=== PATIENT | male | born 1965 | race Caucasian/White ===

== ENCOUNTER 2017-05-25 12:24 | Emergency (ER) | payer MEDICAID ==
[~2017-05-25] VITALS: Ht 177.8 cm; Wt 75.0 kg
[~2017-05-25 12:24] MED LIST: AMLO10 PO; CALC.25 PO; CLON.2 PO; HYDR10TA23 PO; MIRTA15 PO; NORC5TAB PO; OLAN10TA PO; PHOS667C5 PO; PROZ40CA PO
[2017-05-25 12:26] VITALS: BP 176/112; PULSE 74; RESP 20; TEMP 97.5; O2SAT 99
[2017-05-25 12:32] VITALS: BP 178/93
[2017-05-25 12:38] VITALS: BP 190/93; PULSE 64; RESP 18; TEMP 97.6; O2SAT 99
[2017-05-25] MEDS ORDERED: CALC1CAP PO (12:43)
--- NOTE | 2017-05-25 13:02 | PD ---
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 He went to do dialysis yesterday and was told his fistula was clotted and needed to come to the emergency department. Dialysis was not completed. Dr. Thomas placed the fistula in August 2016. Patient has polycystic kidney disease. Patient also has hypertension and did not take his Norvasc 10 mg this morning. Symptoms are moderate in severity. Has no other medical complaints. No other modified factors or associated signs and symptoms. PFSH Past Medical History Arthritis: Yes Cancer: No Cardiovascular Problems: Yes High Cholesterol: No Chest Pain: No Congestive Heart Failure: No Diabetes: No Dialysis: Yes (left fistula upper arm) Diminished Hearing: No Endocrine: No Gastrointestinal Disorders: No GERD: Yes (pt denies) Glaucoma: Yes Gout: Yes Genitourinary: Yes Hepatitis: No Hiatal Hernia: No Hypertension: Yes Immune Disorder: No Kidney Stones: No Musculoskeletal: Yes Neurologic: No Psychiatric: Yes (bipolar) Reproductive: No Respiratory: Yes Renal Failure: Yes Thyroid Disease: No Past Surgical History Body Medical Devices: broken lex in rt. femur Joint Replacement: No Neurologic Surgery: No Pacemaker: No Other Surgery: Yes (left fistula placement for dialysis) Social History Alcohol Use: No Tobacco Use: Yes (1/2 PPD) Substance Use: No Allergies-Medications (Allergen,Severity, Reaction): Coded Allergies: Codeine (Verified Allergy, Unknown, Hives, 05/25/17) Reported Meds & Prescriptions Reported Meds & Active Scripts Active [place] (Hydrocodone-Acetaminophen) 5-325 mg Tab 1 Tab PO Q8HR PRN Reported Calcium Acetate (Phosphate Binder) 667 Mg Cap 667 Mg PO TID Norvasc (Amlodipine Besylate) 10 Mg Tab 10 Mg PO DAILY Review of Systems Except as stated in HPI: all other systems reviewed are Neg Physical Exam Narrative GENERAL: Well-nourished, well-developed male patient, in no acute distress SKIN: Warm and dry. Right AV fistula without palpable thrill. Right upper extreme supplemented with 2+ radial pulses and sensory intact and without erythema or edema. HEAD: Atraumatic. Normocephalic. EYES: Pupils equal and round. No scleral icterus. No injection or drainage. ENT: Mucosa pink and moist. Airway patent. NECK: Trachea midline. CARDIOVASCULAR: Regular rate. RESPIRATORY: No accessory muscle use. GASTROINTESTINAL: Rounded. MUSCULOSKELETAL: No obvious deformities. No clubbing. No cyanosis. No edema. NEUROLOGICAL: Awake and alert. Oriented 3. No obvious cranial nerve deficits. Motor grossly within normal limits. Normal speech. PSYCHIATRIC: Appropriate mood and affect; insight and judgment normal. Data Data Last Documented VS Vital Signs Date Time Temp Pulse Resp B/P Pulse Ox O2 Delivery O2 Flow Rate FiO2 05/25/17 12:38 64 18 99 Room Air 05/25/17 12:38 97.6 190/93 Orders Basic Metabolic Panel (Bmp) (05/25/17 12:55) Complete Blood Count With Diff (05/25/17 12:55) Amlodipine (Norvasc) (05/25/17 13:15) Prothrombin Time / Inr (Pt) (05/25/17 13:14) Act Partial Throm Time (Ptt) (05/25/17 13:14) Labs Laboratory Tests Test 05/25/17 13:10 White Blood Count 6.1 TH/MM3 Red Blood Count 4.21 MIL/MM3 Hemoglobin 13.1 GM/DL Hematocrit 39.9 % Mean Corpuscular Volume 94.8 FL Mean Corpuscular Hemoglobin 31.2 PG Mean Corpuscular Hemoglobin 32.9 % Concent Red Cell Distribution Width 13.8 % Platelet Count 187 TH/MM3 Mean Platelet Volume 9.0 FL Neutrophils (%) (Auto) 74.9 % Lymphocytes (%) (Auto) 17.2 % Monocytes (%) (Auto) 7.1 % Eosinophils (%) (Auto) 0.4 % Basophils (%) (Auto) 0.4 % Neutrophils # (Auto) 4.6 TH/MM3 Lymphocytes # (Auto) 1.1 TH/MM3 Monocytes # (Auto) 0.4 TH/MM3 Eosinophils # (Auto) 0.0 TH/MM3 Basophils # (Auto) 0.0 TH/MM3 CBC Comment DIFF FINAL Differential Comment Prothrombin Time 11.3 SEC Prothromb Time International 1.0 RATIO Ratio Activated Partial 29.8 SEC Thromboplast Time Sodium Level 138 MEQ/L Potassium Level 4.3 MEQ/L Chloride Level 106 MEQ/L Carbon Dioxide Level 23.7 MEQ/L Anion Gap 8 MEQ/L Blood Urea Nitrogen 55 MG/DL Creatinine 6.03 MG/DL Estimat Glomerular Filtration 10 ML/MIN Rate Random Glucose 84 MG/DL Calcium Level 8.8 MG/DL MDM Medical Decision Making Medical Screen Exam Complete: Yes Emergency Medical Condition: Yes Medical Record Reviewed: Yes Differential Diagnosis AV fistula malfunction, hypertension, medical clearance Narrative Course 52-year-old male on dialysis that was told to come to the emergency department yesterday after reporting to dialysis and his AV fistula is clotted off. There is no thrill on exam. Patient's blood pressure is also elevated. He did not take his Norvasc today. I spoke with Dr. Giron my attending physician, and she recommended to call Dr. Thomas or whoever is on-call for him to discuss the AV fistula. Norvasc administered in the ER. 1303: Call out to Dr. Thomas. 1315: I spoke with Dr. Oh and he recommend for the patient to be referred to interventional radiology. 1420: BUN 55. Creatinine 6.03. Patient will be admitted with and referred to interventional radiology. Call placed to residents for admission. 1439: Spoke with Dr. Lon M.D. resident, and gave report for admission. 1536: Dr. Burton spoke with interventional radiology and they feel comfortable discharging the patient home and having the patient call and make an appointment to be seen in interventional radiology on Saturday. The patient will be discharged home. I discussed this with the patient and he verbalizes understanding and agreement with the plan of care. He was provided with the phone number and told to call and make an appointment on Saturday. Instructed patient to follow up with primary care provider. Patient verbalizes understanding and agreement with treatment plan. Patient is medically cleared and stable for discharge. Discussed reasons to return to the emergency department. Patient agrees with treatment plan. The patients vital signs are stable and the patient is stable for outpatient follow-up and treatment. Patient discharged home, stable and in no acute distress. Diagnosis Primary Impression: AV fistula occlusion Qualified Code: T82.898A - Arteriovenous fistula occlusion, initial encounter Referrals: Primary Care Physician Patient Instructions: General Instructions Additional Instructions: Avoid eating foods with potassium Avoid drinking fluids in excess Call [phone], as early as 6:30 AM on Saturday morning, and ask for scheduling to schedule an appointment for Saturday for your fistula Follow-up with primary care provider Return to the emergency department immediately with worsening of symptoms Med/Other Pt SpecificInfo: No Meds Exist/No RX given Disposition: 01 DISCHARGE HOME Condition: Stable Renata Leonardo May 25, 2017 13:02
[2017-05-25 13:39] LABS: AUTOMATED NEUTROPHIL # 4.6 TH/MM3 (1.8-7.7); BASOPHIL % 0.4 % (0.0-2.0); EOSINOPHIL % 0.4 % (0.0-4.0); HEMATOCRIT 39.9 % (39.0-51.0); HEMO FLAGS DIFF FINAL; LYMPH % 17.2 % (9.0-44.0); LYMPHOCYTE # 1.1 TH/MM3 (1.0-4.8); MEAN CELL VOLUME 94.8 FL (80.0-100.0); MEAN CORPUSCULAR HEMOGLOBIN 31.2 PG (27.0-34.0); MEAN CORPUSCULAR HGB CONC 32.9 % (32.0-36.0); MONO % 7.1 % (0.0-8.0); NEUT % 74.9 % (16.0-70.0); PLATELET COUNT 187 TH/MM3 (150-450); RED BLOOD COUNT 4.21 MIL/MM3 (4.50-5.90); RED CELL DISTRIBUTION WIDTH 13.8 % (11.6-17.2); WHITE BLOOD COUNT 6.1 TH/MM3 (4.0-11.0)
[2017-05-25 13:46] LABS: BICARBONATE 23.7 MEQ/L (21.0-32.0); POTASSIUM 4.3 MEQ/L (3.5-5.1)
[2017-05-25 14:03] LABS: APTT (PATIENT) 29.8 SEC (24.3-30.1); PROTHROMBIN TIME - PATIENT 11.3 SEC (9.8-11.6)
--- NOTE | 2017-05-25 14:52 | PD ---
Data Data Last Documented VS Vital Signs Date Time Temp Pulse Resp B/P Pulse Ox O2 Delivery O2 Flow Rate FiO2 05/25/17 12:38 64 18 99 Room Air 05/25/17 12:38 97.6 190/93 Orders Basic Metabolic Panel (Bmp) (05/25/17 12:55) Complete Blood Count With Diff (05/25/17 12:55) Amlodipine (Norvasc) (05/25/17 13:15) Prothrombin Time / Inr (Pt) (05/25/17 13:14) Act Partial Throm Time (Ptt) (05/25/17 13:14) Admit Order (Ed Use Only) (05/25/17 14:38) Labs Laboratory Tests Test 05/25/17 13:10 White Blood Count 6.1 TH/MM3 Red Blood Count 4.21 MIL/MM3 Hemoglobin 13.1 GM/DL Hematocrit 39.9 % Mean Corpuscular Volume 94.8 FL Mean Corpuscular Hemoglobin 31.2 PG Mean Corpuscular Hemoglobin 32.9 % Concent Red Cell Distribution Width 13.8 % Platelet Count 187 TH/MM3 Mean Platelet Volume 9.0 FL Neutrophils (%) (Auto) 74.9 % Lymphocytes (%) (Auto) 17.2 % Monocytes (%) (Auto) 7.1 % Eosinophils (%) (Auto) 0.4 % Basophils (%) (Auto) 0.4 % Neutrophils # (Auto) 4.6 TH/MM3 Lymphocytes # (Auto) 1.1 TH/MM3 Monocytes # (Auto) 0.4 TH/MM3 Eosinophils # (Auto) 0.0 TH/MM3 Basophils # (Auto) 0.0 TH/MM3 CBC Comment DIFF FINAL Differential Comment Prothrombin Time 11.3 SEC Prothromb Time International 1.0 RATIO Ratio Activated Partial 29.8 SEC Thromboplast Time Sodium Level 138 MEQ/L Potassium Level 4.3 MEQ/L Chloride Level 106 MEQ/L Carbon Dioxide Level 23.7 MEQ/L Anion Gap 8 MEQ/L Blood Urea Nitrogen 55 MG/DL Creatinine 6.03 MG/DL Estimat Glomerular Filtration 10 ML/MIN Rate Random Glucose 84 MG/DL Calcium Level 8.8 MG/DL MDM Supervised Visit with ANNA: Yes Narrative Course The history, exam, and medical decision-making in the associated midlevel provider note were completed with my assistance. I reviewed and agree with the findings presented. I attest that I had a [id number] encounter with the patient on the same day, and personally performed and documented my assessment and findings in the medical record. *My assessment and Findings: This is a 52-year-old male who presents to the emergency department with a clotted AV fistula. His AV fistula was found to be nonfunctioning yesterday at dialysis he was told to come to the emergency department. He presents today. Labs are reassuring. Patient will be admitted for interventional radiology evaluation of the fistula. Diagnosis Primary Impression: AV fistula occlusion Qualified Code: T82.898A - Arteriovenous fistula occlusion, initial encounter Sarah Melendez MD May 25, 2017 14:52
--- NOTE | 2017-05-25 15:10 | HHI.HP ---
HPI Service Family Medicine Primary Care Physician No Primary Care Physician Admission Diagnosis AV FISTULA CLOTTED Diagnoses: International Travel<30 Days: No Contact w/Intl Traveler<30days: No Known Affected Area: No History of Present Illness Patient is a 52-year-old male with past medical history for polycystic kidney disease currently on dialysis presenting due to occlusion of his AV fistula. Patient went to dialysis on Saturday and was informed that his AV fistula had clotted and was told to come to the ED. He was not able to have dialysis on Saturday. His last dialysis was on Saturday. He is normally dialyzed Saturday/Saturday/Saturday. AV fistula was done in [address] Barroso. His cold rolling coordinator is Dr. Garduno, who he saw last week. He does not know his baseline creatine. Overall he feels well. He has had some nausea and a decreased appetite over the past several days. Otherwise he has no other acute concerns. (Hilda Forrest MD R3) Review of Systems Constitutional: DENIES: Fever, Chills Eyes: DENIES: Vision loss Ears, nose, mouth, throat: DENIES: Hearing loss Respiratory: DENIES: Shortness of breath Cardiovascular: DENIES: Chest pain Gastrointestinal: COMPLAINS OF: Nausea, DENIES: Abdominal pain, Constipation, Diarrhea Genitourinary: DENIES: Dysuria Integumentary: DENIES: Rash Hematologic/lymphatic: DENIES: Bruising Neurologic: DENIES: Headache Psychiatric: DENIES: Mood changes (Hilda Forrest MD R3) Past Family Social History Past Medical History Polycystic kidney disease HTN Gout Per EMR: Bipolar disorder Past Surgical History AV fistula in right arm, August 2016 [place] in right femur Fusion in C5-6 (Pt was in an accident in 1983) Reported Medications Reported Meds & Active Scripts Active [place] (Hydrocodone-Acetaminophen) 5-325 mg Tab 1 Tab PO Q8HR PRN Reported Calcium Acetate (Phosphate Binder) 667 Mg Cap 667 Mg PO TID Norvasc (Amlodipine Besylate) 10 Mg Tab 10 Mg PO DAILY (Hilda Forrest MD R3) Allergies: Coded Allergies: Codeine (Verified Allergy, Unknown, Hives, 05/25/17) Family History Mother: at 86 Father: DM, in his 70s Social History He lives with his grilfriend Smokes about <1/2 PPD, trying to quit, has been prescribed Chantix, has been smoking for over 30yrs denies alcohol no illicit drug use (Hilda Forrest MD R3) Physical Exam Vital Signs Vital Signs Date Time Temp Pulse Resp B/P Pulse Ox O2 Delivery O2 Flow Rate FiO2 05/25/17 12:38 64 18 99 Room Air 05/25/17 12:38 97.6 64 18 190/93 99 Room Air 05/25/17 12:32 178/93 05/25/17 12:26 97.5 74 20 176/112 99 Room Air Physical Exam GENERAL: This is a well-nourished, well-developed patient, in no apparent distress. SKIN: No rashes, ecchymoses or lesions. Cool and dry. HEAD: Atraumatic. Normocephalic. No temporal or scalp tenderness. EYES: Pupils equal round and reactive. Extraocular motions intact. No scleral icterus. No injection or drainage. ENT: Nose without bleeding, purulent drainage or septal hematoma. Throat without erythema, tonsillar hypertrophy or exudate. Uvula midline. Airway patent. Upper dentures NECK: Trachea midline. No JVD or lymphadenopathy. Supple, nontender, no meningeal signs. CARDIOVASCULAR: Regular rate and rhythm without murmurs, gallops, or rubs. RESPIRATORY: Clear to auscultation. Breath sounds equal bilaterally. No wheezes , rales, or rhonchi. GASTROINTESTINAL: Abdomen soft, mildly distended, mild diffuse abdominal discomfort with palpation. Umbilical hernia about 3cm in diameter, reducible. No palpable masses. MUSCULOSKELETAL: Extremities without clubbing, cyanosis, or edema. No calf tenderness. Negative Homans sign bilaterally. RUE: Pt with Right AV fistula, no palpable thrill. Right arm is warm and well perfused, +2 brachial and radial pulses. NEUROLOGICAL: Awake and alert. Cranial nerves II through XII intact. Motor and sensory grossly within normal limits. Normal speech. PSYCH: Pt with flat affect, makes appropriate eye contact. Laboratory Laboratory Tests Test 05/25/17 13:10 White Blood Count 6.1 Red Blood Count 4.21 Hemoglobin 13.1 Hematocrit 39.9 Mean Corpuscular Volume 94.8 Mean Corpuscular Hemoglobin 31.2 Mean Corpuscular Hemoglobin 32.9 Concent Red Cell Distribution Width 13.8 Platelet Count 187 Mean Platelet Volume 9.0 Neutrophils (%) (Auto) 74.9 Lymphocytes (%) (Auto) 17.2 Monocytes (%) (Auto) 7.1 Eosinophils (%) (Auto) 0.4 Basophils (%) (Auto) 0.4 Neutrophils # (Auto) 4.6 Lymphocytes # (Auto) 1.1 Monocytes # (Auto) 0.4 Eosinophils # (Auto) 0.0 Basophils # (Auto) 0.0 CBC Comment DIFF FINAL Differential Comment Prothrombin Time 11.3 Prothromb Time International 1.0 Ratio Activated Partial 29.8 Thromboplast Time Sodium Level 138 Potassium Level 4.3 Chloride Level 106 Carbon Dioxide Level 23.7 Anion Gap 8 Blood Urea Nitrogen 55 Creatinine 6.03 Estimat Glomerular Filtration 10 Rate Random Glucose 84 Calcium Level 8.8 (Hilda Forrest MD R3) Result Diagram: 05/25/17 1310 05/25/17 1310 Assessment and Plan Assessment and Plan Patient is a 52-year-old male with history of polycystic kidney disease currently on dialysis presenting due to AV fistula occlusion. Interventional radiology to be consulted Code Status Full Discussed Condition With SDW Dr. Goldstein, PGY1 WDW Weight Inspector rn corrections (Hilda Forrest MD R3) Attending Attestation Case reviewed and discussed with the resident team. Agree with plan of care as discussed with me and documented in the resident note. Resident physicians report that after patient was seen by them the decision was made not to admit patient since IR not available over . Will have procedure done Saturday. ( Galen Osman MD) Problem List: (1) AV fistula occlusion Status: Acute Plan: Pt presents with occlusion of AV fistula x1 day. Electrolytes currently within normal limits. -IR consulted, appreciate recommendations. Unfortunately on the weekend there is no interventional radiologist in-house, unless there is an acute emergency. Patient would not be able to have AV fistula evaluated by IR until Saturday. -Patient's case was discussed with cold rolling coordinator rn corrections. Patient's electrolytes are within normal limits. Patient does not need to be dialyzed emergently. Patient to be discharged to follow-up with IR as an outpatient on Saturday. (2) Polycystic kidney disease Status: Acute Plan: Patient with history of polycystic kidney disease, currently on dialysis Saturday/Saturday/Saturday. See plan above (3) Abdominal distention Status: Acute Plan: On exam patient with abdominal distention. -Consider abdominal ultrasound for further evaluation -We'll check LFTs, consider hepatitis profile if elevated (4) Hypertension Status: Chronic Plan: Continue home Norvasc (5) FEN/PPX Status: Acute Plan: Fluids: None, patient tolerating PO. Restrict fluids as patient will not be dialyzed until Saturday Electrolytes: Within normal limits, continue to monitor Nutrition: Renal diet DVT PPX: Heparin (Hilda Forrest MD R3) Problem List: (1) AV fistula occlusion Status: Acute Plan: Pt presents with occlusion of AV fistula x1 day. Electrolytes currently within normal limits. -IR consulted, appreciate recommendations. Unfortunately on the weekend there is no interventional radiologist in-house, unless there is an acute emergency. Patient would not be able to have AV fistula evaluated by IR until Saturday. -Patient's case was discussed with cold rolling coordinator rn corrections. Patient's electrolytes are within normal limits. Patient does not need to be dialyzed emergently. Patient to be discharged to follow-up with IR as an outpatient on Saturday. (2) Polycystic kidney disease Status: Acute Plan: Patient with history of polycystic kidney disease, currently on dialysis Saturday/Saturday/Saturday. See plan above (3) Abdominal distention Status: Acute Plan: On exam patient with abdominal distention. -Consider abdominal ultrasound for further evaluation -We'll check LFTs, consider hepatitis profile if elevated (4) Hypertension Status: Chronic Plan: Continue home Norvasc (5) FEN/PPX Status: Acute Plan: Fluids: None, patient tolerating PO. Restrict fluids as patient will not be dialyzed until Saturday Electrolytes: Within normal limits, continue to monitor Nutrition: Renal diet DVT PPX: Heparin (Galen Osman MD) Problem Qualifiers (1) AV fistula occlusion: Qualified Code: T82.898A - Arteriovenous fistula occlusion, initial encounter Hilda Forrest MD R3 May 25, 2017 15:10 Galen Osman MD May 26, 2017 15:14
[2017-05-25 16:12] VITALS: BP 190/90
[2017-06-10] MEDS ORDERED: VARE.5 PO (12:34)
== END 2017-05-25 16:13 | disposition home or self-care (01) ==
LOC: NEPD 12:24 → UNDOADMIN 14:40 → NEDA 14:40
DX: T82.898A Other specified complication of vascular prosthetic devices, implants and grafts, initial encounter (principal); M13.88 Other specified arthritis, other site; K21.9 Gastro-esophageal reflux disease without esophagitis; M10.9 Gout, unspecified; F31.9 Bipolar disorder, unspecified; I12.9 Hypertensive chronic kidney disease with stage 1 through stage 4 chronic kidney disease, or unspecified chronic kidney disease; N18.9 Chronic kidney disease, unspecified; F17.200 Nicotine dependence, unspecified, uncomplicated; Z99.2 Dependence on renal dialysis
CPT/HCPCS: 80048; 85025; 85610; 85730; 99283

== ENCOUNTER 2017-05-27 10:08 | Observation (INO) | payer MEDICAID ==
[~2017-05-27] VITALS: Ht 177.8 cm; Wt 75.0 kg
[~2017-05-27 10:08] MED LIST changes: -CALC.25 PO; +CALC1CAP PO; -CLON.2 PO; -HYDR10TA23 PO; -MIRTA15 PO; -OLAN10TA PO; -PHOS667C5 PO; -PROZ40CA PO
[2017-05-27 10:10] VITALS: BP 173/96; PULSE 78; RESP 18; TEMP 98.4; O2SAT 98
--- NOTE | 2017-05-27 10:33 | PD ---
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 I saw him in the emergency department over the weekend and he was instructed to call the radiology department this morning to make an appointment to get his fistula declotted. He says he lost his discharge paperwork on the bus that he just came to the emergency department to figure out what was going on. He says he denies any shortness of breath, chest pain or any new symptoms. The last time he received dialysis was 6 days ago. 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 [facility] Past Medical History Arthritis: Yes Cancer: No Cardiovascular Problems: Yes High Cholesterol: No Chest Pain: No Congestive Heart Failure: No Diabetes: No Dialysis: Yes (right fistula upper arm) Diminished Hearing: No Endocrine: No Gastrointestinal Disorders: No GERD: Yes (pt denies) Glaucoma: Yes Gout: Yes Genitourinary: Yes Hepatitis: No Hiatal Hernia: No Hypertension: Yes Immune Disorder: No Kidney Stones: No Musculoskeletal: Yes Neurologic: No Psychiatric: Yes (bipolar) Reproductive: No Respiratory: Yes Renal Failure: Yes Thyroid Disease: No Past Surgical History Body Medical Devices: broken lex in rt. femur Joint Replacement: No Neurologic Surgery: No Pacemaker: No Other Surgery: Yes (right fistula placement for dialysis) Social History Alcohol Use: No Tobacco Use: Yes (1/2 PPD) Substance Use: No Allergies-Medications (Allergen,Severity, Reaction): Coded Allergies: Codeine (Verified Allergy, Unknown, Hives, 05/27/17) Reported Meds & Prescriptions Reported Meds & Active Scripts Active Reported Calcium Acetate (Phosphate Binder) 667 Mg Cap 667 Mg PO TID Norvasc (Amlodipine Besylate) 10 Mg Tab 10 Mg PO DAILY Review of Systems Except as stated in HPI: all other systems reviewed are Neg Physical Exam Narrative GENERAL:Well appearing, no acute distress SKIN: Focused skin assessment warm and dry. HEAD: Atraumatic. Normocephalic. EYES: Pupils equal and round. No injection or drainage. ENT: Moist mucous membranes NECK: Trachea midline. CARDIOVASCULAR: Regular rate and rhythm. No murmur appreciated. no thrill AV fistula RLE RESPIRATORY: Clear to auscultation. Breath sounds equal bilaterally. GASTROINTESTINAL: Abdomen soft, non-tender, nondistended. MUSCULOSKELETAL: No obvious deformities. NEUROLOGICAL: Awake and alert. No obvious cranial nerve deficits. PSYCHIATRIC: Appropriate mood and affect; insight and judgment normal. Data Data Last Documented VS Vital Signs Date Time Temp Pulse Resp B/P Pulse Ox O2 Delivery O2 Flow Rate FiO2 05/27/17 10:10 98.4 78 18 173/96 98 Room Air Orders Complete Blood Count With Diff (05/27/17 10:19) Basic Metabolic Panel (Bmp) (05/27/17 10:19) ^ Insert Iv (05/27/17 10:19) Invasive Rad Dept Consult (05/27/17 ) Admit Order (Ed Use Only) (05/27/17 12:16) Labs Laboratory Tests Test 05/27/17 10:34 White Blood Count 6.7 TH/MM3 Red Blood Count 4.33 MIL/MM3 Hemoglobin 13.6 GM/DL Hematocrit 40.2 % Mean Corpuscular Volume 93.0 FL Mean Corpuscular Hemoglobin 31.5 PG Mean Corpuscular Hemoglobin 33.9 % Concent Red Cell Distribution Width 13.2 % Platelet Count 190 TH/MM3 Mean Platelet Volume 8.4 FL Neutrophils (%) (Auto) 75.4 % Lymphocytes (%) (Auto) 15.7 % Monocytes (%) (Auto) 7.9 % Eosinophils (%) (Auto) 0.4 % Basophils (%) (Auto) 0.6 % Neutrophils # (Auto) 5.0 TH/MM3 Lymphocytes # (Auto) 1.0 TH/MM3 Monocytes # (Auto) 0.5 TH/MM3 Eosinophils # (Auto) 0.0 TH/MM3 Basophils # (Auto) 0.0 TH/MM3 CBC Comment DIFF FINAL Differential Comment Sodium Level 135 MEQ/L Potassium Level 4.4 MEQ/L Chloride Level 105 MEQ/L Carbon Dioxide Level 21.5 MEQ/L Anion Gap 9 MEQ/L Blood Urea Nitrogen 54 MG/DL Creatinine 5.54 MG/DL Estimat Glomerular Filtration 11 ML/MIN Rate Random Glucose 96 MG/DL Calcium Level 9.0 MG/DL [facility] Medical Decision Making Medical Screen Exam Complete: Yes Emergency Medical Condition: Yes Differential Diagnosis Thrombosed AV fistula Narrative Course This is a 52-year-old male who presents to the emergency department with a clotted AV fistula. He was supposed to follow up as an outpatient with radiology but failed to do so. Now has been 6 days since dialysis. I plan to place him in observation and consult interventional radiology. Labs were obtained which look reassuring. Diagnosis Primary Impression: Clotted renal dialysis AV graft Qualified Code: T82.868D - Thrombosis of kidney dialysis arteriovenous graft, subsequent encounter Admitting Information Admitting Physician Requests: Observation Sarah Melendez MD May 27, 2017 10:33
[2017-05-27 10:47] LABS: BASOPHIL % 0.6 % (0.0-2.0); EOSINOPHIL % 0.4 % (0.0-4.0); HEMATOCRIT 40.2 % (39.0-51.0); HEMO FLAGS DIFF FINAL; LYMPH % 15.7 % (9.0-44.0); MEAN CORPUSCULAR HEMOGLOBIN 31.5 PG (27.0-34.0); MEAN CORPUSCULAR HGB CONC 33.9 % (32.0-36.0); MONO % 7.9 % (0.0-8.0); NEUT % 75.4 % (16.0-70.0); PLATELET COUNT 190 TH/MM3 (150-450); RED BLOOD COUNT 4.33 MIL/MM3 (4.50-5.90); RED CELL DISTRIBUTION WIDTH 13.2 % (11.6-17.2); WHITE BLOOD COUNT 6.7 TH/MM3 (4.0-11.0)
[2017-05-27 11:15] LABS: BICARBONATE 21.5 MEQ/L (21.0-32.0); POTASSIUM 4.4 MEQ/L (3.5-5.1)
[2017-05-27] MEDS ORDERED: SODIUM CHLORIDE 0.9% FLUSH 10 ML FLUSH IV FLUSH PRN ×2 (12:30→16:00)
[2017-05-27] MEDS ORDERED: ceFAZolin 2 GM PREMIX 50 ML ONE (14:05)
[2017-05-27] MEDS ORDERED: MIDAZOLAM HCL 2 MG/2 ML VIAL ONE (14:14)
[2017-05-27] MEDS ORDERED: fentaNYL CITRATE 250 MCG/5 ML AMP ONE (14:14)
[2017-05-27] MEDS ORDERED: ALTEPLASE RECOMBINANT 2 MG VIAL INTRACATH ONE (14:49)
--- NOTE | 2017-05-27 14:51 | HHI.HP ---
[facility] Service Family Medicine Primary Care Physician No Primary Care Physician Admission Diagnosis av fistula occlusion Diagnoses: International Travel<30 Days: No Contact w/Intl Traveler<30days: No Known Affected Area: No History of Present Illness Mr. Streeter is a 52 y/o M with a past medical history of polycystic kidney disease currently on MWF dialysis presenting due to occlusion of his AV fistula. The patient states that he went to dialysis on Saturday and was informed by the nursing staff that his fistula had clotted off, and they were unable to complete his dialysis. He then presented on 05/25/17 to the emergency department because of his occlusion with where he was discharged home with instructions to follow-up with interventional radiology on Saturday for occlusion procedure. Unfortunately, he lost his discharge paperwork and therefore presented to the ER this morning for his procedure. He currently states that his occlusion is not painful. He has full range of motion and sensation in his right upper extremity. He states that he will be able to walk up a complete flight of stairs without shortness of breath or chest pain if required to. He currently has no other complaints and denies any fevers, chills, shortness of breath, chest pain, NVD, abdominal pain, or calf tenderness. Review of Systems Constitutional: DENIES: Fever, Dizziness Eyes: DENIES: Blurred vision Ears, nose, mouth, throat: DENIES: Nasal discharge, Throat pain Respiratory: DENIES: Cough, Shortness of breath Cardiovascular: DENIES: Chest pain Gastrointestinal: COMPLAINS OF: Abdominal pain (abdominal fullness/bloating), DENIES: Constipation, Diarrhea, Nausea, Vomiting Genitourinary: DENIES: Dysuria Musculoskeletal: COMPLAINS OF: Joint pain (right knee pain) Integumentary: DENIES: Rash Hematologic/lymphatic: DENIES: Lymphadenopathy Neurologic: DENIES: Headache Past Family Social History Past Medical History Polycystic kidney disease HTN Gout Per EMR: Bipolar disorder Past Surgical History AV fistula in right arm, August 2016 [place] in right femur Fusion in C5-6 (Pt was in an accident in 1983) Allergies: Coded Allergies: Codeine (Verified Allergy, Unknown, Hives, 05/27/17) Family History Mother: at 86 Father: DM, in his 70s Social History He lives with his grilfriend Smokes about <1/2 PPD, trying to quit, has been prescribed Chantix, has been smoking for over 30yrs denies alcohol no illicit drug use Physical Exam Vital Signs Vital Signs Date Time Temp Pulse Resp B/P Pulse Ox O2 Delivery O2 Flow Rate FiO2 05/27/17 10:10 98.4 78 18 173/96 98 Room Air Physical Exam GENERAL: Well-nourished, well-developed 52-year-old male lying on gurney in no acute distress SKIN: No rashes, ecchymoses or lesions. Cool and dry. HEENT: Atraumatic, normocephalic with EOMI. MMM. No LAD, JVD, or thyroid abnormality appreciated. NECK: Trachea midline. No JVD or lymphadenopathy. Supple, nontender, no meningeal signs. CARDIOVASCULAR: Regular rate and rhythm without murmurs, gallops, or rubs. RESPIRATORY: Clear to auscultation bilaterally with no CRW. No increased work of breathing. GASTROINTESTINAL: Abdomen soft, mildly distended with mild tenderness to palpation. Positive bowel sounds. Umbilical hernia approximately 3 cm in diameter, reducible and nontender. No other palpable masses. MUSCULOSKELETAL: Extremities without cyanosis or edema. No calf tenderness and negative Homans sign. Right upper extremity: Patient with right AV fistula without palpable thrill. 2-3 cm palpable clot superior to the right antecubital fossa. 2+ brachial and radial pulses. NEUROLOGICAL: Awake and alert. Cranial nerves II through XII grossly intact. Motor and sensory grossly within normal limits. Five out of 5 muscle strength in all muscle groups. Normal speech. Normal interaction with medical staff. Laboratory Laboratory Tests Test 05/27/17 10:34 White Blood Count 6.7 Red Blood Count 4.33 Hemoglobin 13.6 Hematocrit 40.2 Mean Corpuscular Volume 93.0 Mean Corpuscular Hemoglobin 31.5 Mean Corpuscular Hemoglobin 33.9 Concent Red Cell Distribution Width 13.2 Platelet Count 190 Mean Platelet Volume 8.4 Neutrophils (%) (Auto) 75.4 Lymphocytes (%) (Auto) 15.7 Monocytes (%) (Auto) 7.9 Eosinophils (%) (Auto) 0.4 Basophils (%) (Auto) 0.6 Neutrophils # (Auto) 5.0 Lymphocytes # (Auto) 1.0 Monocytes # (Auto) 0.5 Eosinophils # (Auto) 0.0 Basophils # (Auto) 0.0 CBC Comment DIFF FINAL Differential Comment Sodium Level 135 Potassium Level 4.4 Chloride Level 105 Carbon Dioxide Level 21.5 Anion Gap 9 Blood Urea Nitrogen 54 Creatinine 5.54 Estimat Glomerular Filtration 11 Rate Random Glucose 96 Calcium Level 9.0 Result Diagram: 05/27/17 1034 05/27/17 1034 Assessment and Plan Assessment and Plan Mr. Amezquita is a 52-year-old male with a history of polycystic kidney disease currently on MWF dialysis presenting due to AV fistula occlusion. Code Status DNR Discussed Condition With Dr. Melendez, ER physician Dr. Salcido Problem List: (1) AV fistula occlusion Status: Acute Plan: Patient presents with occlusion of his right upper extremity AV fistula since last 05/22/17. Electrolytes currently within normal limits. IR consulted, appreciate recommendations. BMP currently stable Patient's case was discussed with business services intern medical receptionist medical assistant, Dr. Garduno. If patient is to remain in hospital overnight, nephrology will plan for dialysis tomorrow, Saturday05/28/17. If patient is discharged, team will contact case management in order to arrange for dialysis tomorrow, Saturday05/28/17. (2) Polycystic kidney disease Status: Acute Plan: Patient with history of polycystic kidney disease, currently on dialysis Saturday/Saturday/Saturday. Please see plan above (3) Abdominal distention Status: Acute Plan: On exam patient with abdominal distention likely related to volume overload as patient has not had dialysis and approximately one week. Please see plan as above LFTs pending Consider abdominal ultrasound/hepatitis panel for further evaluation pending LFT evaluation (4) Hypertension Status: Chronic Plan: Patient with chronic hypertension Continue home Norvasc Clonidine 0.1 mg by mouth every 6 hours for blood pressure greater than 180/100 (5) FEN/PPX Status: Acute Plan: Fluids: Tolerating fluids by mouth Electrolytes: Within normal limits, continue to monitor Diet: Nothing by mouth in preparation for procedure, will place on renal diet once Procedure completed Prophylaxis: Duoneb necessary for shortness of breath/wheezing, Vistaril when necessary for insomnia, constipation protocol in place, Zofran when necessary for nausea or vomiting (6) Surgical contraindication to deep vein thrombosis (DVT) prophylaxis Status: Acute Plan: Patient scheduled by interventional radiology for AV fistula occlusion Hold pharmacological DVT prophylaxis at this time SCD/TEDs ordered Physician Certification 2 Midnight Certification Type: Admission for Inpatient Services Order for Inpatient Services The services are ordered in accordance with Medicare regulations or non- Medicare payer requirements, as applicable. In the case of services not specified as inpatient-only, they are appropriately provided as inpatient services in accordance with the 2-midnight benchmark. Estimated LOS (days): 3 3 days is the estimated time the patient will need to remain in the hospital, assuming treatment plan goals are met and no additional complications. Post-Hospital Plan: Home Problem Qualifiers (1) AV fistula occlusion: Qualified Code: T82.898A - Arteriovenous fistula occlusion, initial encounter Jabier Shah MD R2 May 27, 2017 14:51
[2017-05-27] MEDS ORDERED: LIDOCAINE 1%/EPINEPHrine 1:100,000 SOLN 20 ML VIAL ONE (15:10)
[2017-05-27] MEDS: MIDAZOLAM HCL 2 MG/2 ML VIAL ONE (15:15)
[2017-05-27] MEDS ORDERED: IODIXANOL 320 MG/ML 50 ML VIAL (for RAD SPEC) ONE (15:45)
[2017-05-27 15:49] VITALS: BP 173/97; PULSE 79; RESP 16; RESP 17; TEMP 97.7; O2SAT 100
--- NOTE | 2017-05-27 15:53 | PD.RAD ---
Post Procedure Progress Note Pre Procedure Diagnosis: (1) Polycystic kidney disease (2) AV fistula occlusion Post Procedure Diagnosis: (1) Polycystic kidney disease (2) AV fistula occlusion Procedure Date: May 27, 2017 Supervising Radiologist: Dion Schultz JR Proceduralist/Assist: Yuliana Mace, RT(R), Marlene Beltrán RT(R)() Anesthesia: Conscious Sedation Plan of Activity Patient to Unit: ROPU Patient Condition: Good See PACS Report for procedural detail/treatment Vascular-Venous Procedure Procedure 1 Procedure Site: Right Arm Procedure(s): AV Graft/Fistula Evaluation Findings: Right arm AVF evaluation shows brachial artery to cephalic vein AVF. Thrombosis of the cephalic vein outflow near the anastomosis with a diffusely strictured cephalic vein throughout the remaining part. This fistula is not salvageable. Central Venous Access Device Procedure 1 Right Internal Jugular Hemodialysis Catheter Tunneled Placement dual lumen Marshallese: 15 Findings: Placed Permcath due to occluded AVF that is not salvageable. Permcath works well and is ready for use. Jr. Antoine,Dion Jackson MD May 27, 2017 15:53
[2017-05-27] MEDS ORDERED: RESP: ALBUTEROL 2.5 MG/IPRATROPIUM 0.5 MG NEB (PRN) NEB (16:00)
[2017-05-27] MEDS ORDERED: SODIUM CHLORIDE 0.9% FLUSH 10 ML FLUSH IVF PRN (16:00)
[2017-05-27] MEDS ORDERED: SENNOSIDES 8.6 MG TAB PO PRN (16:00)
[2017-05-27] MEDS ORDERED: DOCUSATE SODIUM 50 MG/SENNA 8.6 MG TAB PO PRN (16:00)
[2017-05-27] MEDS ORDERED: NALOXONE HCL 0.4 MG/ML AMP IV PRN ×2 (16:00→21:00)
[2017-05-27] MEDS ORDERED: BISACODYL 10 MG SUPP RECTAL PRN (16:00)
[2017-05-27] MEDS ORDERED: MAGNESIUM HYDROXIDE SUSP 30 ML CUP PO PRN (16:00)
[2017-05-27] MEDS ORDERED: LACTULOSE SYRUP 20 GM/30 ML CUP PO PRN (16:00)
[2017-05-27] MEDS ORDERED: ONDANSETRON HCL 4 MG/2 ML VIAL IVP PRN (16:00)
[2017-05-27] MEDS ORDERED: HEPARIN SODIUM - IV 2,000 UNITS/2 ML VIAL IV FLUSH PRN (16:00)
[2017-05-27 16:05] VITALS: BP_SYST 158; BP_SYST 172; BP_DIAS 84; BP_DIAS 88; PULSE 72; PULSE 76; RESP 16; RESP 18; O2SAT 98
[2017-05-27 16:17] LABS: TOTAL BILIRUBIN ADULT 0.5 MG/DL (0.2-1.0)
[2017-05-27 16:22] LABS: INDIRECT BILIRUBIN 0.4 MG/DL (0.0-0.8)
[2017-05-27 16:28] VITALS: BP 170/102; PULSE 67; RESP 18; TEMP 96; O2SAT 99
[2017-05-27] MEDS: cloNIDine HCL 0.1 MG TAB PO PRN ×2 (17:51→23:34)
[2017-05-27] MEDS: CALCIUM ACETATE 667 MG CAP PO SCH (17:51)
[2017-05-27 20:00] VITALS: BP 173/97; PULSE 57; RESP 16; TEMP 96.4; O2SAT 98
[2017-05-27] MEDS: SODIUM CHLORIDE 0.9% FLUSH 10 ML FLUSH IV FLUSH SCH (20:28)
[2017-05-27] MEDS ORDERED: SODIUM CHLORIDE 0.9% FLUSH 10 ML FLUSH IV FLUSH SCH (21:00)
[2017-05-27] MEDS ORDERED: ACETAMINOPHEN/HYDROcodone 325 MG/5 MG TAB PO PRN (21:00)
[2017-05-27] MEDS ORDERED: ACETAMINOPHEN 325 MG TAB PO PRN (21:00)
[2017-05-27] MEDS ORDERED: MORPHINE SULFATE 4 MG/ML INJ IV PRN (21:00)
[2017-05-27] MEDS: ACETAMINOPHEN/HYDROcodone 325 MG/7.5 MG TAB PO PRN (21:51)
[2017-05-27 23:32] VITALS: BP 182/90; PULSE 54; RESP 16; TEMP 97.1; O2SAT 99
[2017-05-28 01:30] VITALS: BP 135/96; PULSE 57
[2017-05-28 04:00] VITALS: BP 130/80; PULSE 50; RESP 17; TEMP 96.6; O2SAT 98
[2017-05-28] MEDS: CALCIUM ACETATE 667 MG CAP PO SCH ×3 (07:26→15:44)
[2017-05-28] MEDS: ACETAMINOPHEN/HYDROcodone 325 MG/7.5 MG TAB PO PRN ×3 (07:26→16:53)
[2017-05-28] MEDS: SODIUM CHLORIDE 0.9% FLUSH 10 ML FLUSH IV FLUSH SCH (07:28)
[2017-05-28 08:00] VITALS: BP 164/93; PULSE 51; RESP 18; TEMP 95.8; O2SAT 100
--- NOTE | 2017-05-28 08:51 | HHI.FPPN ---
Subjective Remarks Patient seen and examined this morning by Medical Team. No acute events overnight. Patient was hypertensive overnight to the 180s systolic. Patient states he did well after his procedure, but has some mild pain at his new permacath site on his R chest. There has been no erythema, hemorrhage, or drainage at his permacath. Otherwise he has no complaints and denies any recent fevers, chills, SOB, chest pain, NVD, ABD pain, or calf tenderness. Objective Vitals Vital Signs Date Time Temp Pulse Resp B/P Pulse Ox O2 Delivery O2 Flow Rate FiO2 05/28/17 08:00 95.8 51 18 164/93 100 05/28/17 04:00 96.6 50 17 130/80 98 05/28/17 01:30 57 135/96 05/27/17 23:32 97.1 54 16 182/90 99 Automatic Cuff 05/27/17 20:00 96.4 57 16 173/97 98 05/27/17 16:28 96.0 67 18 170/102 99 05/27/17 16:05 72 16 158/84 98 05/27/17 15:49 97.7 79 16 173/97 100 05/27/17 15:49 97.7 79 17 173/97 100 05/27/17 10:10 98.4 78 18 173/96 98 Room Air I/O 05/27/17 05/27/17 05/27/17 05/28/17 05/28/17 05/28/17 07:00 15:00 23:00 07:00 15:00 23:00 Intake Total 480 ml 240 ml Balance 480 ml 240 ml Intake Oral 480 ml 240 ml # Voids 2 1 # Bowel Movements 0 0 Result Diagram: 05/27/17 1034 05/27/17 1034 Objective Remarks GENERAL: Well-nourished, well-developed male lying in bed in no acute distress. SKIN: Warm and dry. No rash. Multiple bandages on the right upper extremity after procedure to unocclude right upper extremity AV fistula. Right permacath inserted on right chest wall. Permacath site clean, dry, and intact. No erythema , exudate, or hemorrhage appreciated. Patient mildly tender to palpation at permacath site. HEENT: Atraumatic, normocephalic with EOMI. MMM. No rhinorrhea CARDIOVASCULAR: Regular rate and rhythm without obvious murmurs, gallops, or rubs. RESPIRATORY: Clear to auscultation bilaterally with no CRW. No increased work of breathing. GASTROINTESTINAL: Abdomen soft, non-tender, nondistended with positive bowel sounds. No masses appreciated. MUSCULOSKELETAL: No cyanosis or edema. Strength grossly WNL. NEURO/PSYCH: Afocal. Awake, alert, and oriented x3. Normal interaction with examiners. A/P Assessment and Plan Mr. Amezquita is a 52-year-old male with a history of polycystic kidney disease currently on MWF dialysis presenting due to AV fistula occlusion. His AV fistula was unable to be unoccluded by IR procedure. Permacath was placed and dialysis was scheduled for 05/28. Vascular surgery consulted to assist with possible new AV fistula site. Discharge Planning Pending vascular surgery recommendations and dialysis. Problem List: (1) AV fistula occlusion Status: Acute Plan: Patient presents with occlusion of his right upper extremity AV fistula since last 05/22/17. Electrolytes currently within normal limits. IR consulted, appreciate recommendations. AV fistula unable to be unoccluded. Permacath placed for dialysis treatment Vascular surgery consulted for possible alternate AV fistula site. BMP currently stable Nephrology consulted for dialysis, appreciate recommendations (2) Polycystic kidney disease Status: Acute Plan: Patient with history of polycystic kidney disease, currently on dialysis Saturday/Saturday/Saturday. Please see plan above (3) Abdominal distention Status: Acute Plan: On exam patient with abdominal distention likely related to volume overload as patient has not had dialysis and approximately one week. Please see plan as above LFTs pending Consider abdominal ultrasound/hepatitis panel for further evaluation pending LFT evaluation (4) Hypertension Status: Chronic Plan: Patient with chronic hypertension Continue home Norvasc Clonidine 0.1 mg by mouth every 6 hours for blood pressure greater than 180/100 (5) FEN/PPX Status: Acute Plan: Fluids: Tolerating fluids by mouth Electrolytes: Within normal limits, continue to monitor Diet: Nothing by mouth in preparation for procedure, will place on renal diet once Procedure completed Prophylaxis: Duoneb necessary for shortness of breath/wheezing, Vistaril when necessary for insomnia, constipation protocol in place, Zofran when necessary for nausea or vomiting (6) Surgical contraindication to deep vein thrombosis (DVT) prophylaxis Status: Acute Plan: Patient scheduled by interventional radiology for AV fistula occlusion Hold pharmacological DVT prophylaxis at this time SCD/TEDs ordered Problem Qualifiers (1) AV fistula occlusion: Qualified Code: T82.898A - Arteriovenous fistula occlusion, initial encounter Jabier Shah MD R2 May 28, 2017 08:51
[2017-05-28 09:11] LABS: AUTOMATED NEUTROPHIL # 3.3 TH/MM3 (1.8-7.7); BASOPHIL % 0.5 % (0.0-2.0); EOSINOPHIL % 0.8 % (0.0-4.0); HEMATOCRIT 36.5 % (39.0-51.0); HEMO FLAGS DIFF FINAL; LYMPH % 22.5 % (9.0-44.0); LYMPHOCYTE # 1.1 TH/MM3 (1.0-4.8); MEAN CELL VOLUME 92.9 FL (80.0-100.0); MEAN CORPUSCULAR HEMOGLOBIN 31.5 PG (27.0-34.0); MONO % 9.8 % (0.0-8.0); NEUT % 66.4 % (16.0-70.0); PLATELET COUNT 160 TH/MM3 (150-450); RED BLOOD COUNT 3.93 MIL/MM3 (4.50-5.90); RED CELL DISTRIBUTION WIDTH 13.5 % (11.6-17.2)
[2017-05-28 09:19] LABS: PROTHROMBIN TIME - PATIENT 11.4 SEC (9.8-11.6)
--- NOTE | 2017-05-28 09:27 | RADRPT ---
EXAM DATE/TIME: 05/27/2017 14:03 [facility] COMPARISON: No previous studies available for comparison. INDICATIONS : Patient with history of polycystic kidney disease in need of tunnelled dialysis catheter placement. P atient has a nonsalvageable fistula involving the right arm. MEDICAL HISTORY : GERD, Dialysis, Gout, HTN, Renal failure, Bipolar disorder, Polycystic kidney disease SURGICAL HISTORY : AV fistula Aug 2016, Right femur lex, C5-6 fusion ENCOUNTER: Initial ACUITY: 1 week PAIN SCORE: 0/10 FLUORO TIME: 3.2 minutes IMAGE SERIES: 1 SEDATION TIME: 75 minutes ACCESS: Right internal jugular vein SEDATION: 1.) 2.5 mg midazolam (Versed) IV 2.) 275 mcg fentanyl (Sublimaze) IV Prophylactic antibiotics were administered with appropriate pre-procedure timing. Vancomycin within 2 hours of procedure, Ancef (or alternative) within 1 hour of procedure. DEVICE: 1. 15 Estonian dual lumen 23 cm Davis II Plus catheter PROCEDURE : 1. Ultrasound-guided venipuncture. 2. PermaCath placement. 3. Conscious sedation with continuous EKG and oximetry monitoring. The risks, benefits and alternatives to the procedure were explained and verbal and written consent w as obtained. The site was prepped in sterile fashion. Full sterile technique was used, including ca p, mask, sterile gloves and gown and a large sterile sheet. Hand hygiene and 2% chlorhexidine and/or betadine/alcohol prep was utilized per protocol for cutaneous antisepsis. The skin and subcutaneous tissues were infiltrated with local anesthetic solution. With ultrasound and fluoroscopic guidance a dermatotomy was created over the prescribed vein. A micr opuncture set was used to access the targeted vein and serial dilatation was performed to accept the prescribed length catheter. A subcutaneous tunnel was created in a retrograde fashion the catheter w as pulled through the tunnel. The catheter was flushed and assembled and locked with heparin. The c atheter was sutured in place. Conscious sedation was performed with the prescribed dosages and duration as above in the presence of an independent trained radiology nurse to assist in the monitoring of the patient. EKG and oximetry remained stable throughout the procedure. The patient tolerated the procedure well and there were n o complications. The patient was sent to post anesthesia recovery in stable condition. CONCLUSION: Uncomplicated PermaCath placement as above. Dion Schultz Jr., MD on May 28, 2017 at 9:23 Board Certified Radiologist. This report was verified electronically.
--- NOTE | 2017-05-28 09:32 | RADRPT ---
EXAM DATE/TIME: 05/27/2017 14:03 [facility] COMPARISON: No previous studies available for comparison. INDICATIONS : Patient with occluded AV fistula in need of venogram. MEDICAL HISTORY : GERD, Dialysis, Gout, HTN, Renal failure, Bipolar disorder, Polycystic kidney disease SURGICAL HISTORY : AV fistula Aug 2016, Right femur lex, C5-6 fusion ENCOUNTER: Initial ACUITY: 1 week PAIN SCORE: 0/10 FLUORO TIME: 3.2 minutes IMAGE SERIES: 4 ACCESS SITE: Right AV fistula CONTRAST: 20 cc Visipaque (iodixanol) MEDICATION(S): 1.) 2.5 mg midazolam (Versed) IV 2.) 275 mcg fentanyl (Sublimaze) IV 3.) 6 mg TPA IA DEVICE(S): 1.) Right AV fistula Syvek pad 2.) Right AV fistula Syvek pad PROCEDURE : 1. Ultrasound-guided venipuncture. 2. Venogram. 3. Catheter directed thrombolysis The risks, benefits and alternatives to the procedure were explained and verbal and written consent w as obtained. The site was prepped in sterile fashion. Full sterile technique was used, including ca p, mask, sterile gloves and gown and a large sterile sheet. Hand hygiene and 2% chlorhexidine and/or betadine/alcohol prep was utilized per protocol for cutaneous antisepsis. The skin and subcutaneous tissues were infiltrated with local anesthetic solution. The patient has a fistula involving the right upper arm. Palpation shows no pulse or thrill within th e fistula. Under direct sonographic guidance a 21 gauge needle was passed into the outflow vein headi ng towards the arterial venous anastomosis. This was exchanged for a 6 Wallisian sheath. The outflow vei n was laced with 4 mg of TPA while holding pressure at the arterial venous anastomosis. A second acce ss was performed utilizing ultrasound guidance heading towards the central venous system. A 6 Wallisian sheath was placed. Through this a Berenstein catheter was utilized to gain access to the subclavian v ein. A central venogram was performed showing patency of the subclavian vein and superior vena cava. The catheter was pulled back into the outflow vein of the fistula which is the cephalic vein. A gentl e injection of contrast was performed which shows diffuse high-grade stenosis throughout the entire o utflow cephalic vein. The portion of the cephalic vein within the distal upper arm just proximal to t he anastomosis is a more normal caliber but is totally thrombosed. This fistula is no longer salvagea ble due to the long segment stenosis. Catheters were removed and hemostasis obtained while holding pr essure. CONCLUSION: Brachial artery to cephalic vein arteriovenous fistula involving the right upper arm. The fistula is thrombosed secondary to a long segment high grade stenosis of the outflow cephalic vein. This is not salvageable. A perm catheter will be placed. Dion Schultz Jr., MD on May 28, 2017 at 9:25 Board Certified Radiologist. This report was verified electronically.
[2017-05-28] MEDS ORDERED: SODIUM CHLOR 0.9% 1000 ML INJ 1,000 ML IV PRN ×3 (09:35)
[2017-05-28 09:37] LABS: ALKALINE PHOSPHATASE 93 U/L (45-117); ALT (GPT) 10 U/L (12-78); ANION GAP 8 MEQ/L (5-15); AST (GOT) 11 U/L (15-37); BICARBONATE 21.8 MEQ/L (21.0-32.0); BLOOD UREA NITROGEN 57 MG/DL (7-18); CHLORIDE 107 MEQ/L (98-107); GLOMERULAR FILTRATION RATE 12 ML/MIN (>89); POTASSIUM 4.5 MEQ/L (3.5-5.1); SODIUM (NA) 137 MEQ/L (136-145); TOTAL BILIRUBIN ADULT 0.2 MG/DL (0.2-1.0)
[2017-05-28] MEDS ORDERED: HEPARIN SODIUM - IV 10,000 UNITS/10 ML VIAL PRN (09:45)
[2017-05-28] MEDS ORDERED: HEPARIN SODIUM - IV 10,000 UNITS/10 ML VIAL IVF PRN (09:45)
[2017-05-28] MEDS ORDERED: cloNIDine HCL 0.1 MG TAB PO PRN (09:45)
[2017-05-28] MEDS ORDERED: ALBUMIN HUMAN 25% 25 GM/100 ML BAGP IV PRN (09:45)
[2017-05-28] MEDS ORDERED: GELATIN 12 MM/7 MM FOAM TOP PRN (09:45)
[2017-05-28] MEDS ORDERED: MANNITOL 12.5 GM/50 ML VIAL IV PRN (09:45)
[2017-05-28] MEDS ORDERED: ONDANSETRON HCL 4 MG/2 ML VIAL IV PRN (09:45)
[2017-05-28] MEDS ORDERED: diphenhydrAMINE HCL 25 MG CAP PO PRN (09:45)
[2017-05-28] MEDS ORDERED: SODIUM CHLORIDE 0.9% FLUSH 10 ML FLUSH IV FLUSH PRN (09:45)
[2017-05-28] MEDS ORDERED: GENTAMICIN SULFATE (DIALYSIS USE ONLY) 20 MG/2 ML VIAL IV PRN (09:45)
[2017-05-28] MEDS ORDERED: NITROGLYCERIN 0.4 MG SL 25 TABS/BTL SL PRN (09:45)
[2017-05-28] MEDS ORDERED: ACETAMINOPHEN 325 MG TAB PO PRN (09:45)
--- NOTE | 2017-05-28 11:27 | HHI.FPPN ---
Subjective Remarks Medicine attending note: 52-year-old gentleman admitted with AV fistula thrombosis. Planned procedure with interventional radiology to hopefully reestablish patency. Chronic dialysis site due to polycystic kidney disease, Dr Garduno is his patternmaker helper. Blood pressure has been labile, otherwise the patient has no acute complaints. Refer to resident's history and physical for complete discussion of present illness, past medical history, family history, social history and review of systems. Objective Vitals Vital Signs Date Time Temp Pulse Resp B/P Pulse Ox O2 Delivery O2 Flow Rate FiO2 05/28/17 08:00 95.8 51 18 164/93 100 05/28/17 04:00 96.6 50 17 130/80 98 05/28/17 01:30 57 135/96 05/27/17 23:32 97.1 54 16 182/90 99 Automatic Cuff 05/27/17 20:00 96.4 57 16 173/97 98 05/27/17 16:28 96.0 67 18 170/102 99 05/27/17 16:05 72 16 158/84 98 05/27/17 15:49 97.7 79 16 173/97 100 05/27/17 15:49 97.7 79 17 173/97 100 I/O 05/27/17 05/27/17 05/27/17 05/28/17 05/28/17 05/28/17 06:59 14:59 22:59 06:59 14:59 22:59 Intake Total 480 ml 240 ml Balance 480 ml 240 ml Intake Oral 480 ml 240 ml # Voids 2 1 # Bowel Movements 0 0 Result Diagram: 05/28/17 0808 05/28/17 0808 Objective Remarks Vital signs noted, lability to blood pressure. Gen. appearance: Sallow appearance to the skin, no acute symptoms, patient pleasant, normal affect, HEENT: Grossly nonlocalizing. Lungs: Diminished breath sounds at the bases, no localized Rales. Cardiac: S1-S2, soft systolic murmur at the left sternal border. Vas-Cath in the right apparent internal jugular Abdomen: Flat, benign, no organomegaly evident, no tenderness. Extremities: Palpation of the right arm anteriorly reveals no palpable thrill, surgical changes. Feet are warm and dry, intact pedal pulses. Labs reviewed. A/P Assessment and Plan Clinical assessment: 52-year-old gentleman on chronic renal dialysis secondary to polycystic disease admitted for reestablishment of vascular access for dialysis. Patient seen and examined. Case discussed with resident team. Please refer to resident's history and physical for further details regarding history of present illness, review of systems, past medical history, surgical history, family history and social history. Problem List: (1) AV fistula occlusion Status: Acute Plan: Patient presents with occlusion of his right upper extremity AV fistula since last 05/22/17. Electrolytes currently within normal limits. IR consulted, appreciate recommendations. BMP currently stable Patient's case was discussed with patternmaker helper instrument and control service person, Dr. Garduno. If patient is to remain in hospital overnight, nephrology will plan for dialysis tomorrow, Saturday05/28/17. If patient is discharged, team will contact case management in order to arrange for dialysis tomorrow, Saturday05/28/17. (2) Polycystic kidney disease Status: Acute Plan: Patient with history of polycystic kidney disease, currently on dialysis Saturday/Saturday/Saturday. Please see plan above (3) Abdominal distention Status: Acute Plan: On exam patient with abdominal distention likely related to volume overload as patient has not had dialysis and approximately one week. Please see plan as above LFTs pending Consider abdominal ultrasound/hepatitis panel for further evaluation pending LFT evaluation (4) Hypertension Status: Chronic Plan: Patient with chronic hypertension Continue home Norvasc Clonidine 0.1 mg by mouth every 6 hours for blood pressure greater than 180/100 (5) FEN/PPX Status: Acute Plan: Fluids: Tolerating fluids by mouth Electrolytes: Within normal limits, continue to monitor Diet: Nothing by mouth in preparation for procedure, will place on renal diet once Procedure completed Prophylaxis: Duoneb necessary for shortness of breath/wheezing, Vistaril when necessary for insomnia, constipation protocol in place, Zofran when necessary for nausea or vomiting (6) Surgical contraindication to deep vein thrombosis (DVT) prophylaxis Status: Acute Plan: Patient scheduled by interventional radiology for AV fistula occlusion Hold pharmacological DVT prophylaxis at this time SCD/TEDs ordered Problem Qualifiers (1) AV fistula occlusion: Qualified Code: T82.898A - Arteriovenous fistula occlusion, initial encounter Jeffrey Contreras MD May 28, 2017 11:27
--- NOTE | 2017-05-28 11:51 | PD.CONS ---
HPI Service Nephrology Consult Requested By Reason for Consult ESRD on HD Primary Care Physician No Primary Care Physician History of Present Illness This is a 52 y/o male patient with ESRD with whom we follow in the outpatient setting. He normally dialyzes MWF, his last HD was Saturday one week ago as his access had clotted. The patient was unable to obtain outpatient AVF correction, therefore came to ER for evaluation. PMH of ADPKD, HTN, metabolic bone disorder , and anemia. We were consulted for dialysis management. He was seen during dialysis today, is not in distress. He is a full code. (Andra Bryan ) Review of Systems Constitutional: COMPLAINS OF: Fatigue (Andra Bryan) Past Family Social History Allergies: Coded Allergies: codeine (Unverified Allergy, Unknown, Hives, 05/28/17) Past Medical History ESRD on HD MWF secondary to ADPKD HTN Gout Metabolic bone disorder anemia of chronic disease Per EMR: Bipolar disorder Past Surgical History AVF left arm AV fistula in right arm, August 2016 Kane in right femur Fusion in C5-6 (Pt was in an accident in 1983) Reported Medications Calcium Acetate (Phosphate Binder) 667 Mg Cap 667 Mg PO TID Norvasc (Amlodipine Besylate) 10 Mg Tab 10 Mg PO DAILY Active Ordered Medications Current Medications Medications (Trade) Dose Ordered Sig/Chas Route Start Time Stop Time Status Last Admin (Norvasc) 10 mg DAILY PO 05/28/17 09:00 05/28/17 07:26 (Phoslo) 667 mg TID PO 05/27/17 18:00 05/28/17 07:26 (NS Flush) UNSCH PRN IVF 05/27/17 16:00 (Heparin Inj) UNSCH PRN IV FLUSH 05/27/17 16:00 (NS Flush) 2 ml UNSCH PRN IV FLUSH 05/27/17 16:00 (NS Flush) 2 ml BID IV FLUSH 05/27/17 21:00 05/28/17 07:28 (Zofran Inj) 4 mg Q6H PRN IVP 05/27/17 16:00 (Perla-Colace) 1 tab BID PRN PO 05/27/17 16:00 05/28/17 07:26 (Milk Of Magnesia Liq) 30 ml Q12H PRN PO 05/27/17 16:00 (Senokot) 17.2 mg Q12H PRN PO 05/27/17 16:00 (Dulcolax Supp) 10 mg DAILY PRN RECTAL 05/27/17 16:00 (Lactulose Liq) 30 ml DAILY PRN PO 05/27/17 16:00 (Catapres) 0.1 mg Q6H PRN PO 05/27/17 16:00 05/27/17 23:34 (Vistaril) 50 mg HS PO 05/27/17 21:00 05/27/17 20:28 (Tylenol) 650 mg Q6H PRN PO 05/27/17 21:00 ([place] 5-325 Mg) 1 tab Q4H PRN PO 05/27/17 21:00 ([place] 7.5-325 Mg) 1 tab Q4H PRN PO 05/27/17 21:00 05/28/17 07:26 (Morphine Inj) 2 mg Q4H PRN IV 05/27/17 21:00 Naloxone HCl 0.4 mg 0.4 mg UNSCH PRN IV 05/27/17 21:00 (NS 1000 ml Inj) 1,000 ml @ 0 mls/hr Q0M PRN IV 05/28/17 09:35 Heparin Sodium (Porcine) 8000 units 8,000 units UNSCH PRN IVF 05/28/17 09:45 Sodium Chloride 1,000 ml @ 200 mls/hr Q5H PRN IV 05/28/17 09:35 (NS 1000 ml Inj) 1,000 ml @ 0 mls/hr Q0M PRN IV 05/28/17 09:35 (Mannitol Inj) 12.5 gm UNSCH PRN IV 05/28/17 09:45 (Albumin 25% Inj) 25 gm UNSCH PRN IV 05/28/17 09:45 (NS Flush) 5 ml UNSCH PRN IV FLUSH 05/28/17 09:45 (Heparin Inj) UNSCH PRN .XX 05/28/17 09:45 (Gentamicin (Dialysis) Inj) 20 mg UNSCH PRN IV 05/28/17 09:45 (Zofran Inj) 4 mg UNSCH PRN IV 05/28/17 09:45 (Tylenol) 650 mg UNSCH PRN PO 05/28/17 09:45 (Benadryl) 25 mg UNSCH PRN PO 05/28/17 09:45 (Nitrostat Sl) 0.4 mg UNSCH PRN SL 05/28/17 09:45 (Catapres) 0.1 mg UNSCH PRN PO 05/28/17 09:45 (Gelfoam 12 Mm/7 Mm Top) 1 foam UNSCH PRN TOP 05/28/17 09:45 Family History no hx of renal failure Social History active smoker denies ETOH lives with girlfriend ambulatory retired from [employer] full code (Andra Bryan) Physical Exam Vital Signs Vital Signs Date Time Temp Pulse Resp B/P Pulse Ox O2 Delivery O2 Flow Rate FiO2 05/28/17 08:00 95.8 51 18 164/93 100 05/28/17 04:00 96.6 50 17 130/80 98 05/28/17 01:30 57 135/96 05/27/17 23:32 97.1 54 16 182/90 99 Automatic Cuff 05/27/17 20:00 96.4 57 16 173/97 98 05/27/17 16:28 96.0 67 18 170/102 99 05/27/17 16:05 72 16 158/84 98 05/27/17 15:49 97.7 79 16 173/97 100 05/27/17 15:49 97.7 79 17 173/97 100 Physical Exam Middle aged male lying supine receiving hemodialysis Awake, alert, oriented x 3 CV: S1/s2, RRR no murmurs Resp: CTAB Abd: + round, protuberant, non tender, normal bowel sounds Ext: no edema, pulses normal, AVF bilateral upper extremities, no thrill or bruit permcath right chest Laboratory Laboratory Tests Test 05/28/17 08:08 White Blood Count 5.0 Red Blood Count 3.93 Hemoglobin 12.4 Hematocrit 36.5 Mean Corpuscular Volume 92.9 Mean Corpuscular Hemoglobin 31.5 Mean Corpuscular Hemoglobin 34.0 Concent Red Cell Distribution Width 13.5 Platelet Count 160 Mean Platelet Volume 8.4 Neutrophils (%) (Auto) 66.4 Lymphocytes (%) (Auto) 22.5 Monocytes (%) (Auto) 9.8 Eosinophils (%) (Auto) 0.8 Basophils (%) (Auto) 0.5 Neutrophils # (Auto) 3.3 Lymphocytes # (Auto) 1.1 Monocytes # (Auto) 0.5 Eosinophils # (Auto) 0.0 Basophils # (Auto) 0.0 CBC Comment DIFF FINAL Differential Comment Prothrombin Time 11.4 Prothromb Time International 1.0 Ratio Sodium Level 137 Potassium Level 4.5 Chloride Level 107 Carbon Dioxide Level 21.8 Anion Gap 8 Blood Urea Nitrogen 57 Creatinine 5.28 Estimat Glomerular Filtration 12 Rate Random Glucose 92 Calcium Level 8.7 Total Bilirubin 0.2 Aspartate Amino Transf 11 (AST/SGOT) Alanine Aminotransferase 10 (ALT/SGPT) Alkaline Phosphatase 93 Total Protein 6.2 Albumin 3.0 (Andra Bryan) Result Diagram: 05/28/17 0808 05/28/17 0808 Imaging Last Impressions Venogram 05/27/17 0000 Signed Impressions: Service Date/Time: Saturday, May 27, 2017 14:03 - CONCLUSION: Brachial artery to cephalic vein arteriovenous fistula involving the right upper arm. The fistula is thrombosed secondary to a long segment high grade stenosis of the outflow cephalic vein. This is not salvageable. A perm catheter will be placed. Dion Schultz Jr., MD Catheter Placement X-Ray 05/27/17 0000 Signed Impressions: Service Date/Time: Saturday, May 27, 2017 14:03 - CONCLUSION: Uncomplicated PermaCath placement as above. Dion Schultz Jr., MD (Andra Bryan) Assessment and Plan Problem List: (1) End stage renal disease Plan: typical MWF HD schedule, last HD was one week ago seen during dialysis today on a 2K, 350 BFR, goal 1L he has clotted right arm AVF, using permcath for treatment, see below avoid IVF, he is relatively stable from a nephrology perspective (2) Clotted renal dialysis AV graft Plan: unsuccessful declotting of right arm AVF, it is unsalvageable I have spoke with vascular, Dr. De Souza, who will evaluate the patient today and plan for outpatient follow up to determine best way to proceed with terminal gauger HD access (3) Hypertension Plan: resume home medications he is on Amlodipine with PRN clonidine (4) Anemia Plan: no epogen required his Hb is acceptable (5) Metabolic bone disease Plan: Calcium acetate has been resumed intermittently check phosphorus level (Andra Bryan) Assessment and Plan patient was seen and examined. Unfortunately AVF thrombosed, IR unable to declot. Has a PermCath. Plan is for discharge. Needs outpatient vascular surgery evaluation. Difficult problem as he has failed AVF in the left arm as well. (Julio Cesar Garduno MD) Problem Qualifiers (1) Clotted renal dialysis AV graft: Qualified Code: T82.868D - Thrombosis of kidney dialysis arteriovenous graft, subsequent encounter Andra Bryan May 28, 2017 11:51 Julio Cesar Garduno MD May 28, 2017 17:32
--- NOTE | 2017-05-28 14:30 | PD.VS.CON ---
History of Present Illness Chief Complaint: Occluded right upper extremity AV Fistula Consult Requested by: Dr. Bryan History of Present Illness Mr. Streeter is a 52 y/o M with a past medical history of polycystic kidney disease currently on MWF dialysis Pt presented to the ED due to an occluded RUE AV fistula Patient w/o hand pain and has full ROM to BUE (Charline Mason) Past/Family/Social History Past Medical History Polycystic kidney disease HTN Gout Bipolar disorder Past Surgical History AV fistula in right arm, August 2016 Kane in right femur Fusion in C5-6 (Pt was in an accident in 1983) Social History Smokes about 1/2 PPD denies alcohol no illicit drug use (Charline Mason) Home Medications Reported Medications Calcium Acetate (Phosphate Binder) 667 Mg Per157 Mg PO TID #90 CAP Ref 0 05/25/17 Amlodipine (Norvasc)10 Mg Tab10 Mg PO DAILY #30 TAB Ref 0 08/12/16 Discontinued Reported Medications Fluoxetine (Prozac)40 Mg Cap40 Cap PO DAILY #30 CAP Ref 0 08/12/16 Discontinued Scripts Hydrocodone-Acetaminophen ([place])5-325 mg Tab1 Tab PO Q8HR PRN (PAIN) #10 TAB Ref 0 Prov:Agueda Adam MD 09/01/16 Olanzapine 10 Mg Tab20 Mg PO HS 30 Days Ref 0 Prov:Mauro Doe MD 08/31/16 Mirtazapine 15 Mg Tab15 Mg PO HS 30 Days Ref 0 Prov:Mauro Doe MD 08/30/16 Clonidine (Catapres)0.2 Mg Tab0.2 Mg PO TID 30 Days Ref 0 Prov:Mauro Doe MD 08/30/16 Calcitriol (Rocaltrol)0.25 Mcg Cap0.25 Mcg PO DAILY 30 Days Ref 0 Prov:Mauro Doe MD 08/30/16 Coded Allergies: codeine (Unverified Allergy, Unknown, Hives, 05/28/17) Physical Exam Vitals/I&O Date Time Temp Pulse Resp B/P Pulse Ox O2 Delivery O2 Flow Rate FiO2 05/28/17 08:00 95.8 51 18 164/93 100 05/28/17 04:00 96.6 50 17 130/80 98 05/28/17 01:30 57 135/96 05/27/17 23:32 97.1 54 16 182/90 99 Automatic Cuff 05/27/17 20:00 96.4 57 16 173/97 98 05/27/17 16:28 96.0 67 18 170/102 99 05/27/17 16:05 72 16 158/84 98 05/27/17 15:49 97.7 79 16 173/97 100 05/27/17 15:49 97.7 79 17 173/97 100 05/28/17 05/28/17 05/28/17 07:00 15:00 23:00 Intake Total 240 ml Output Total 2000 ml Balance 240 ml -2000 ml Neuro: A&OX3 GCS15 Vascular: RUE w/o thrill near AVF BUE warm w/ motor intact Pt w/o hand pain (Charline Mason) Laboratory Tests Test 05/28/17 08:08 White Blood Count 5.0 Red Blood Count 3.93 Hemoglobin 12.4 Hematocrit 36.5 Mean Corpuscular Volume 92.9 Mean Corpuscular Hemoglobin 31.5 Mean Corpuscular Hemoglobin 34.0 Concent Red Cell Distribution Width 13.5 Platelet Count 160 Mean Platelet Volume 8.4 Neutrophils (%) (Auto) 66.4 Lymphocytes (%) (Auto) 22.5 Monocytes (%) (Auto) 9.8 Eosinophils (%) (Auto) 0.8 Basophils (%) (Auto) 0.5 Neutrophils # (Auto) 3.3 Lymphocytes # (Auto) 1.1 Monocytes # (Auto) 0.5 Eosinophils # (Auto) 0.0 Basophils # (Auto) 0.0 CBC Comment DIFF FINAL Differential Comment Prothrombin Time 11.4 Prothromb Time International 1.0 Ratio Sodium Level 137 Potassium Level 4.5 Chloride Level 107 Carbon Dioxide Level 21.8 Anion Gap 8 Blood Urea Nitrogen 57 Creatinine 5.28 Estimat Glomerular Filtration 12 Rate Random Glucose 92 Calcium Level 8.7 Phosphorus Level 4.9 Total Bilirubin 0.2 Aspartate Amino Transf 11 (AST/SGOT) Alanine Aminotransferase 10 (ALT/SGPT) Alkaline Phosphatase 93 Total Protein 6.2 Albumin 3.0 Last 48 hours Impressions Venogram 05/27/17 0000 Signed Impressions: Service Date/Time: Saturday, May 27, 2017 14:03 - CONCLUSION: Brachial artery to cephalic vein arteriovenous fistula involving the right upper arm. The fistula is thrombosed secondary to a long segment high grade stenosis of the outflow cephalic vein. This is not salvageable. A perm catheter will be placed. Dion Schultz Jr., MD Catheter Placement X-Ray 05/27/17 0000 Signed Impressions: Service Date/Time: Saturday, May 27, 2017 14:03 - CONCLUSION: Uncomplicated PermaCath placement as above. Dion Schultz Jr., MD (Charline Mason) Assessment and Plan Assessment: (1) AV fistula occlusion Status: Acute Plan Right Brachial/Cephalic AV Fistula occluded Fistula not salvageable Plan Discussed with patient potential new access options Will see patient in our out patient clinic Pt agreed with plan Appointment time and date was given to patient Charline Thompsonpatti [facility] [phone] Discharge Planning Arranged for out patient follow up (Charline Mason) Plan After exam I agree with above. Functioning right upper extremity avf for a few months before thrombosis. Plan for follow up in office to see if any other autogenous options. Jabier Barroso DO, MITCHEL (Jabier Barroso DO) Problem Qualifiers (1) AV fistula occlusion: Qualified Code: T82.898A - Arteriovenous fistula occlusion, initial encounter Charline Mason May 28, 2017 14:30 Jabier Barroso DO May 28, 2017 16:08
--- NOTE | 2017-05-28 16:17 | HHI.DCPOC ---
Discharge Care Plan Diagnosis: (1) Clotted renal dialysis AV graft Goals to Promote Your Health * To prevent worsening of your condition and complications * To maintain your health at the optimal level Directions to Meet Your Goals Take your medications as prescribed Follow your dietary instruction Follow activity as directed Keep your appointments as scheduled Take your immunizations and boosters as scheduled If your symptoms worsen call your PCP, if no PCP go to Urgent Care Center or Emergency Room Smoking is Dangerous to Your Health. Avoid second hand smoke Call the 24-hour hour crisis hotline for domestic abuse at Jabier Shah MD R2 May 28, 2017 16:17
[2017-05-28 16:23] VITALS: BP 118/73; PULSE 74; RESP 18; TEMP 97.3; O2SAT 97
[2017-05-28 18:00] VITALS: O2SAT 97
[2017-06-10] MEDS ORDERED: VARE.5 PO (12:34)
== END 2017-05-28 19:25 | disposition home or self-care (01) ==
LOC: NEPE 10:08 → NEDA 12:17 → OBSVTOIN 12:31 → INTOOBSV 12:31 → N06B 16:33
PROVIDERS: ADMIT Family Medicine; ATTEND Family Medicine
DX: T82.818A Embolism due to vascular prosthetic devices, implants and grafts, initial encounter (principal); T82.868A Thrombosis due to vascular prosthetic devices, implants and grafts, initial encounter; N18.6 End stage renal disease; I12.0 Hypertensive chronic kidney disease with stage 5 chronic kidney disease or end stage renal disease; F17.200 Nicotine dependence, unspecified, uncomplicated; D63.1 Anemia in chronic kidney disease; F31.9 Bipolar disorder, unspecified; H40.9 Unspecified glaucoma; M10.9 Gout, unspecified; Q61.2 Polycystic kidney, adult type; Y83.2 Surgical operation with anastomosis, bypass or graft as the cause of abnormal reaction of the patient, or of later complication, without mention of misadventure at the time of the procedure; Z66 Do not resuscitate; Z99.2 Dependence on renal dialysis
CPT/HCPCS: 80048; 80053; 80076; 84100; 85025; 85610; 90935; 96374; 97163; 99285; C1750; C1769; C1887; C1894; G0378; G8987; G8988; J0690; J1580; J1644; J2250; J2997; J3010; J7030; Q9967; 36558; 36901; 36904; 76937; 77001; 99152; 99153; G0257

== ENCOUNTER → 2017-06-11 | Day surgery (SDC) | payer MEDICAID ==
[~2017-06-11] VITALS: Ht 177.8 cm; Wt 76.3 kg
[~2017-06-11] MED LIST changes: +ACETAMINOPHEN 1000 MG/100 ML 100 ML IV ONE; +ACETAMINOPHEN/HYDROcodone 325 MG/5 MG TAB PO PRN; +BUPIVACAINE/EPINEPHRINE 0.5% PF 30 ML VIAL ONE; +CHLORHEXIDINE GLUCONATE 2 % 1 PACK (2 CLOTHS) TOPICAL PRN; +DO NOT ADM ANY ANTICOAGULANT DRUGS PRN; +FAMOTIDINE 20 MG/2 ML VIAL ONE; +HEPARIN SODIUM - IV 10,000 UNITS/10 ML VIAL ONE; +Hemodialysis Vas Acc Cath PRN Heparin 1000 unit/ml Flush IV FLUSH; +Hemodialysis Vas Access Cath PRN NS Lock Flush IV FLUSH; +INSULIN HUMAN REGULAR 1,000 UNITS/10 ML VIAL SQ PRN; +LACTATED RINGER'S 1000 ML IV PRN; +MAGNESIUM SULFATE 1 GM/100 ML IV PRN; +METOPROLOL TARTRATE 25 MG TAB PO PRN; +MIDAZOLAM HCL 2 MG/2 ML VIAL ONE; +MORPHINE SULFATE 4 MG/ML INJ IV PRN; -NORC5TAB PO; +ONDANSETRON HCL 4 MG/2 ML VIAL IV PUSH ONE; +ONDANSETRON HCL 4 MG/2 ML VIAL IV PUSH PRN; +PERC5TAB12 PO; +PHENYLEPH/NS 1000 MCG/10 ML SYR IV ONE; +PILL SPLITTER OTHER PRN; +POTASSIUM CHLOR 20 MEQ 100 ML x 2 BAGS IV PRN; +POTASSIUM CHLOR 20 MEQ/100 ML x 1 BAG IV PRN; +POTASSIUM PHOSPHATE 21 MMOL/NS 250 ML IV PRN; +POVIDONE IODINE 5% (ANTISEPSIS KIT) 4 APPLICATIONS EACH NARE PRN; +PROPOFOL 200 MG/20 ML AMP IV ONE; +SODIUM CHLORID 0.9% 500 ML IV PRN; +SODIUM CHLORIDE 0.9% FLUSH 10 ML FLUSH IV FLUSH PRN; +SODIUM CHLORIDE 0.9% FLUSH 10 ML FLUSH IV FLUSH SCH; +THROMBIN (TOPICAL) 20,000 UNIT SPRAY KIT ONE; +VANCOMYCIN HCL 1000 MG VIAL ONE; +VARE.5 PO
[2017-06-11 08:25] LABS: BACTERIA, URINE RARE /hpf; BLOOD, URINE SMALL (NEG); COMMENT (UR) CULT NOT INDICATED; CULTURE IF INDICATED CULT NOT INDICATED; GLUCOSE,URINE NEG (NEG); KETONE, URINE NEG (NEG); MUCUS URINE FEW /lpf (OCC); NITRITE,URINE NEG (NEG); PH, URINE 5.5 (5.0-8.5); URINE COLOR YELLOW (YELLW/STRAW)
--- NOTE | 2017-06-11 08:33 | RADRPT ---
EXAM DATE/TIME: 06/11/2017 08:03 [facility] COMPARISON: CHEST SINGLE AP, June 10, 2015, 9:55. INDICATIONS : Evaluate for pneumonia, pneumothorax or communicable disease. Preop chest for left AV graft today MEDICAL HISTORY : Gastroesophageal reflux disease. dialysis, renal failure, polycystic kidney disease SURGICAL HISTORY : cervical fusion, AV fistula, permacath, right femur ORIF ENCOUNTER: Initial ACUITY: 1 day PAIN SCORE: 0/10 LOCATION: Bilateral chest FINDINGS: A single view of the chest demonstrates the lungs to be symmetrically aerated without evidence of mas s, infiltrate or effusion. The cardiomediastinal contours are unremarkable. Osseous structures are intact. Right-sided permacath in good position. CONCLUSION: No acute disease. Dion Schultz Jr., MD on June 11, 2017 at 8:31 Board Certified Radiologist. This report was verified electronically.
[2017-06-11 08:42] LABS: AUTOMATED NEUTROPHIL # 5.7 TH/MM3 (1.8-7.7); BASOPHIL % 0.5 % (0.0-2.0); EOSINOPHIL % 0.4 % (0.0-4.0); HEMATOCRIT 37.2 % (39.0-51.0); HEMO FLAGS DIFF FINAL; LYMPH % 15.7 % (9.0-44.0); LYMPHOCYTE # 1.2 TH/MM3 (1.0-4.8); MEAN CELL VOLUME 92.7 FL (80.0-100.0); MEAN CORPUSCULAR HEMOGLOBIN 31.3 PG (27.0-34.0); MEAN CORPUSCULAR HGB CONC 33.8 % (32.0-36.0); MONO % 6.6 % (0.0-8.0); NEUT % 76.8 % (16.0-70.0); PLATELET COUNT 178 TH/MM3 (150-450); RED BLOOD COUNT 4.02 MIL/MM3 (4.50-5.90); RED CELL DISTRIBUTION WIDTH 13.2 % (11.6-17.2); WHITE BLOOD COUNT 7.4 TH/MM3 (4.0-11.0)
[2017-06-11 08:50] LABS: APTT (PATIENT) 28.2 SEC (24.3-30.1); INTERNATIONAL NORMALIZED RATIO 1.1 RATIO
[2017-06-11 09:20] LABS: BICARBONATE 20.8 MEQ/L (21.0-32.0); POTASSIUM 3.9 MEQ/L (3.5-5.1)
[2017-06-11 15:03] VITALS: BP 147/92; PULSE 65; RESP 18; TEMP 97.6; O2SAT 99
--- NOTE | 2017-06-11 22:23 | MP ---
cc: QAMAR COOK DATE OF SURGERY 06/11/2017 PREOPERATIVE DIAGNOSIS End-stage renal disease. POSTOPERATIVE DIAGNOSIS End-stage renal disease PROCEDURE Left upper extremity brachial to axillary vein bovine carotid graft. SURGEON Dr. Ioana Cook MANAGER ASSISTED LIVING Brandi Summers IV FLUIDS 500 mL crystalloid ANESTHESIA General ESTIMATED BLOOD LOSS 100 mL URINE OUTPUT Not calculated. COMPLICATIONS None DISPOSITION To PACU PROCEDURE IN DETAIL The patient's left upper extremity was prepped and draped in a sterile fashion after being given perioperative IV antibiotics. I made a linear incision over the brachial artery that was initially 3-4 cm. I dissected down to the brachial artery removing the bicipital aponeurosis with sharp dissection. I then mobilized the brachial artery and the paired brachial vein. It appeared that one of the parabrachial veins was at least as large as the artery and appeared to be an adequate vein for anastomosis. I did give the patient 3000 units heparin and then I used pediatric profunda clamps to control the brachial artery proximally and distally. It should be noted that the caliber of the artery itself was a little bit smaller a normal brachial artery diameter. I suspected it could have essentially been either radial or ulnar with a high bifurcation. I performed an arteriotomy with an 11-blade and then did and end-to-side anastomosis of the brachial vein with a 5-0 Prolene on VVI. It should be noted that afterwards there was a strong signal in the vein, but there was not a palpable thrill. I then extended my incision up the arm towards the mid biceps with my scalpel and electrocautery and dissected out the brachial vein and branches using small medium clips and 2-0 ties as needed. It should be noted that even though I mobilized it there was intermittently a thrill that did not appear to be in the mid biceps area to be adequately increasing in diameter. Since I thought that this will be a marginal solution, I used a tunneler and a 5-0 carotid bovine arteriograph and tunneled from the brachial artery location up towards the axilla. I did make an incision in the axillary that was about 4 cm with scalpel electrocautery I dissected down to what appeared to be the confluence of the basilic and brachial vein to make the axillary vein. I then performed my proximal anastomosis with 5-0 and a BB1 to the brachial artery after removing and placing two medium clips on the brachial vein. It should be noted I that did irrigate the artery to make sure that I had good back bleeding in this area. Afterwards I had a strong ulnar signal monophonic radial artery signal and a appropriate palmar arch signal. I then performed my distal anastomosis end-to-side fashion into the axillary vein with a 5-0 an a BB1. Did require one 6-0 Prolene correction suture. I then anesthetized the skin incision with approximately 10 mL of 0.5% Marcaine with epinephrine and then closed in layers with 2-0, 3-0 and 4-0. I did use thrombin spray gel for the procedure. The patient tolerated the procedure and was taken to the PACU at the end of the case. DO MARIA VICTORIA Rinaldi/ /1:02 PM /10:00 PM
== END | disposition home or self-care (01) ==
LOC: HSDC 07:31
PROVIDERS: ATTEND Surgery
DX: I12.0 Hypertensive chronic kidney disease with stage 5 chronic kidney disease or end stage renal disease (principal); N18.6 End stage renal disease; Q61.3 Polycystic kidney, unspecified; K21.9 Gastro-esophageal reflux disease without esophagitis; F32.9 Major depressive disorder, single episode, unspecified; F17.210 Nicotine dependence, cigarettes, uncomplicated; Z99.2 Dependence on renal dialysis; Z79.899 Other long term (current) drug therapy
CPT/HCPCS: 01844; 36830; 71010; 76937; 80048; 81001; 85025; 85610; 85730; 86850; 86900; 86901; J0131; J1644; J2250; J2370; J2405; J3010; J3370; J7040

== ENCOUNTER 2017-07-11 10:26 | Observation (INO) | payer MEDICAID ==
[~2017-07-11] VITALS: Ht 177.8 cm; Wt 76.5 kg
[~2017-07-11 10:26] MED LIST changes: -ACETAMINOPHEN 1000 MG/100 ML 100 ML IV ONE; -ACETAMINOPHEN/HYDROcodone 325 MG/5 MG TAB PO PRN; -BUPIVACAINE/EPINEPHRINE 0.5% PF 30 ML VIAL ONE; -CHLORHEXIDINE GLUCONATE 2 % 1 PACK (2 CLOTHS) TOPICAL PRN; -DO NOT ADM ANY ANTICOAGULANT DRUGS PRN; -FAMOTIDINE 20 MG/2 ML VIAL ONE; -HEPARIN SODIUM - IV 10,000 UNITS/10 ML VIAL ONE; -Hemodialysis Vas Acc Cath PRN Heparin 1000 unit/ml Flush IV FLUSH; -Hemodialysis Vas Access Cath PRN NS Lock Flush IV FLUSH; -INSULIN HUMAN REGULAR 1,000 UNITS/10 ML VIAL SQ PRN; -LACTATED RINGER'S 1000 ML IV PRN; -MAGNESIUM SULFATE 1 GM/100 ML IV PRN; -METOPROLOL TARTRATE 25 MG TAB PO PRN; -MIDAZOLAM HCL 2 MG/2 ML VIAL ONE; -MORPHINE SULFATE 4 MG/ML INJ IV PRN; -ONDANSETRON HCL 4 MG/2 ML VIAL IV PUSH ONE; -ONDANSETRON HCL 4 MG/2 ML VIAL IV PUSH PRN; -PERC5TAB12 PO; -PHENYLEPH/NS 1000 MCG/10 ML SYR IV ONE; -PILL SPLITTER OTHER PRN; -POTASSIUM CHLOR 20 MEQ 100 ML x 2 BAGS IV PRN; -POTASSIUM CHLOR 20 MEQ/100 ML x 1 BAG IV PRN; -POTASSIUM PHOSPHATE 21 MMOL/NS 250 ML IV PRN; -POVIDONE IODINE 5% (ANTISEPSIS KIT) 4 APPLICATIONS EACH NARE PRN; -PROPOFOL 200 MG/20 ML AMP IV ONE; -SODIUM CHLORID 0.9% 500 ML IV PRN; -SODIUM CHLORIDE 0.9% FLUSH 10 ML FLUSH IV FLUSH PRN; -SODIUM CHLORIDE 0.9% FLUSH 10 ML FLUSH IV FLUSH SCH; -THROMBIN (TOPICAL) 20,000 UNIT SPRAY KIT ONE; -VANCOMYCIN HCL 1000 MG VIAL ONE
--- NOTE | 2017-07-11 11:57 | RADRPT ---
EXAM DATE/TIME: 07/11/2017 11:28 [facility] COMPARISON: CHEST SINGLE AP, June 11, 2017, 8:03. INDICATIONS : Evaluate for pneumonia, pneumothorax or communicable disease. Pre op for fistula for dialysis today MEDICAL HISTORY : Gastroesophageal reflux disease. Hypertension dialysis, renal failure, polycystic kidney disease SURGICAL HISTORY : av fistula in 2016 ENCOUNTER: Initial ACUITY: 1 day PAIN SCORE: 0/10 LOCATION: Bilateral chest FINDINGS: A single view of the chest demonstrates the lungs to be symmetrically aerated without evidence of mas s, infiltrate or effusion. The cardiomediastinal contours are unremarkable. Osseous structures are intact. A dialysis permacath is present good position on the right CONCLUSION: No acute disease Tyrone Galvan MD on July 11, 2017 at 11:54 Board Certified Radiologist. This report was verified electronically.
[2017-07-11] MEDS ORDERED: CHLORHEXIDINE GLUCONATE 2 % 1 PACK (2 CLOTHS) TOPICAL PRN (12:30)
[2017-07-11] MEDS ORDERED: SODIUM CHLORID 0.9% 500 ML IV PRN (12:30)
[2017-07-11] MEDS ORDERED: INSULIN HUMAN REGULAR 1,000 UNITS/10 ML VIAL SQ PRN (12:30)
[2017-07-11] MEDS ORDERED: METOPROLOL TARTRATE 25 MG TAB PO PRN (12:30)
[2017-07-11] MEDS ORDERED: POVIDONE IODINE 5% (ANTISEPSIS KIT) 4 APPLICATIONS EACH NARE PRN (12:30)
[2017-07-11] MEDS ORDERED: LACTATED RINGER'S 1000 ML IV PRN (12:30)
[2017-07-11 12:57] LABS: AUTOMATED NEUTROPHIL # 3.4 TH/MM3 (1.8-7.7); BASOPHIL % 0.7 % (0.0-2.0); EOSINOPHIL % 0.9 % (0.0-4.0); HEMATOCRIT 35.5 % (39.0-51.0); HEMO FLAGS DIFF FINAL; LYMPH % 22.5 % (9.0-44.0); LYMPHOCYTE # 1.1 TH/MM3 (1.0-4.8); MEAN CELL VOLUME 92.6 FL (80.0-100.0); MEAN CORPUSCULAR HEMOGLOBIN 30.9 PG (27.0-34.0); MEAN CORPUSCULAR HGB CONC 33.3 % (32.0-36.0); MONO % 8.4 % (0.0-8.0); NEUT % 67.5 % (16.0-70.0); PLATELET COUNT 129 TH/MM3 (150-450); RED BLOOD COUNT 3.83 MIL/MM3 (4.50-5.90); RED CELL DISTRIBUTION WIDTH 13.2 % (11.6-17.2)
[2017-07-11 13:08] LABS: INTERNATIONAL NORMALIZED RATIO 1.1 RATIO; PROTHROMBIN TIME - PATIENT 12.2 SEC (9.8-11.6)
[2017-07-11] MEDS ORDERED: IOHEXOL 300 MG/ML 50 ML BTL (for RAD DIAG) OTHER ONE (13:21)
[2017-07-11] MEDS ORDERED: PROPOFOL 200 MG/20 ML AMP IV ONE (13:25)
[2017-07-11] MEDS ORDERED: MIDAZOLAM HCL 2 MG/2 ML VIAL IV ONE (13:25)
[2017-07-11] MEDS ORDERED: ePHEDrine/NS 25 MG/5 ML SYR IV ONE (13:25)
[2017-07-11] MEDS ORDERED: ONDANSETRON HCL 4 MG/2 ML VIAL IV PUSH ONE (13:25)
[2017-07-11] MEDS ORDERED: LABETALOL HCL 100 MG/20 ML VIAL IV ONE (13:25)
[2017-07-11] MEDS ORDERED: PHENYLEPH/NS 1000 MCG/10 ML SYR IV ONE (13:25)
[2017-07-11] MEDS ORDERED: DEXAMETHASONE SOD PHOS 4 MG/ML VIAL IV ONE (13:25)
[2017-07-11] MEDS ORDERED: LIDOCAINE HCL 1% PF 5 ML AMPULE OTHER ONE (13:25)
[2017-07-11] MEDS ORDERED: PROTAMINE SULFATE 50 MG/5 ML VIAL ONE (14:52)
[2017-07-11] MEDS ORDERED: VANCOMYCIN HCL 1000 MG VIAL ONE (14:52)
[2017-07-11] MEDS ORDERED: ceFAZolin 2 GM PREMIX 0 ML ONE (14:52)
[2017-07-11] MEDS ORDERED: HEPARIN-NS/PF INJ 500 ML ONE (14:52)
[2017-07-11] MEDS ORDERED: HEPARIN SODIUM - IV 10,000 UNITS/10 ML VIAL ONE (14:52)
[2017-07-11] MEDS ORDERED: THROMBIN (TOPICAL) 20,000 UNIT SPRAY KIT ONE (14:52)
[2017-07-11] MEDS ORDERED: BUPIVACAINE HCL PF 0.5% 30 ML VIAL ONE (14:52)
--- NOTE | 2017-07-11 14:56 | HHI.HP ---
History of Present Illness Chief Complaint: need for HD access History of Present Illness 52 yo male with multiple HD access attempts B UE, currently getting HD via R chest catheter. Last had L brach-ax with bovine pericardium that is occluded. Presents for angiogram/venogram and possible new access creation in L UE Past/Family/Social History Past Medical History ESRD chronic back pain Past Surgical History R femur lex cervical spine surgery multiple B UE access surgeries Social History + tob Family History NC Home Medications Reported Medications Varenicline (Chantix) 0.5 Mg Tab, 1 MG PO DAILY for Smoking cessation, #3 TAB 0 Refills Days 1-3 06/10/17 Calcium Acetate (Phosphate Binder) (Calcium Acetate (Phosphate Binder)) 667 Mg Cap, 667 MG PO TID for Hyperphosphatemia, #90 CAP 0 Refills 05/25/17 Amlodipine (Norvasc) 10 Mg Tab, 10 MG PO DAILY for Blood Pressure Management, # 30 TAB 0 Refills 08/12/16 Coded Allergies: codeine (Unverified Allergy, Unknown, Hives, 07/11/17) Review of Systems Respiratory: DENIES: Apneas, Cough, Snoring, Wheezing, Hemoptysis, Sputum production, Shortness of breath Cardiovascular: DENIES: Chest pain, Palpitations, Syncope, Dyspnea on Exertion , PND, Lower Extremity Edema, Orthopnea, Claudication Musculoskeletal: COMPLAINS OF: Joint pain, Muscle aches, Back pain, Neck pain Physical Exam Vitals/I&O Date Time Temp Pulse Resp B/P (MAP) Pulse Ox O2 Delivery O2 Flow Rate FiO2 07/11/17 11:30 98.5 56 20 142/94 (110) 99 Neuro: alert, oriented, conversant HEENT: NC/AT; trachea midline Neck: no JVD Heart: reg rate Lungs: + expiratory rhonchi Abdomen: nontender Vascular: multiple B UE incisions, healed L UE brach-ax configuration occluded graft + brachial and radial pulses B Laboratory Tests Test 07/11/17 12:42 White Blood Count 5.0 Red Blood Count 3.83 Hemoglobin 11.8 Hematocrit 35.5 Mean Corpuscular Volume 92.6 Mean Corpuscular Hemoglobin 30.9 Mean Corpuscular Hemoglobin Concent 33.3 Red Cell Distribution Width 13.2 Platelet Count 129 Mean Platelet Volume 9.1 Neutrophils (%) (Auto) 67.5 Lymphocytes (%) (Auto) 22.5 Monocytes (%) (Auto) 8.4 Eosinophils (%) (Auto) 0.9 Basophils (%) (Auto) 0.7 Neutrophils # (Auto) 3.4 Lymphocytes # (Auto) 1.1 Monocytes # (Auto) 0.4 Eosinophils # (Auto) 0.0 Basophils # (Auto) 0.0 CBC Comment DIFF FINAL Differential Comment Prothrombin Time 12.2 Prothromb Time International Ratio 1.1 Blood Urea Nitrogen 16 Creatinine 4.10 Random Glucose 84 Calcium Level 8.7 Sodium Level 140 Potassium Level 4.0 Chloride Level 109 Carbon Dioxide Level 24.0 Anion Gap 7 Estimat Glomerular Filtration Rate 15 Last 48 hours Impressions Chest X-Ray 07/11/17 1108 Signed Impressions: Service Date/Time: June 11:28 - CONCLUSION: No acute disease MD Cherie Pugh VTE Risk Assessment Cherie VTE Risk Assessment: Mod/High Risk (score >= 2) Browni Risk Assessment Model Point Value = 1 Point Value = 2 Point Value = 3 Point Value = 5 Age 41-60 Minor surgery BMI > 25 kg/m2 Swollen legs Varicose veins or History of unexplained or recurrent spontaneous Oral contraceptives or hormone replacement Sepsis (< 1 month) Serious lung disease, including pneumonia (< 1 month) Abnormal pulmonary function Acute myocardial infarction Congestive heart failure (< 1 month) History of inflammatory bowel disease Medical patient at bed rest Age 61-74 Arthroscopic surgery Major open surgery (> 45 min) Laparoscopic surgery (> 45 min) Malignancy Confined to bed (> 72 hours) Immobilizing plaster cast Central venous access Age >= 75 History of VTE Family history of VTE Factor V Leiden Prothrombin [id number] Lupus anticoagulant Anticardiolipin antibodies Elevated serum homocysteine Heparin-induced thrombocytopenia Other congenital or acquired thrombophilia Stroke (< 1 month) Elective arthroplasty Hip, pelvis, or leg fracture Acute spinal cord injury (< 1 month) Prophylaxis Regimen Total Risk Factor Score Risk Level Prophylaxis Regimen 0-1 Low Early ambulation 2 Moderate Order ONE of the following: *Sequential Compression Device (SCD) *Heparin 5000 units SQ BID 3-4 Higher Order ONE of the following medications: *Heparin 5000 units SQ TID *Enoxaparin/Lovenox 40 mg SQ daily (WT < 150 kg, CrCl > 30 mL/min) *Enoxaparin/Lovenox 30 mg SQ daily (WT < 150 kg, CrCl > 10-29 mL/min) *Enoxaparin/Lovenox 30 mg SQ BID (WT < 150 kg, CrCl > 30 mL/min) AND/OR *Sequential Compression Device (SCD) 5 or more Highest Order ONE of the following medications: *Heparin 5000 units SQ TID (Preferred with Epidurals) *Enoxaparin/Lovenox 40 mg SQ daily (WT < 150 kg, CrCl > 30 mL/min) *Enoxaparin/Lovenox 30 mg SQ daily (WT < 150 kg, CrCl > 10-29 mL/min) *Enoxaparin/Lovenox 30 mg SQ BID (WT < 150 kg, CrCl > 30 mL/min) AND *Sequential Compression Device (SCD) Assessment and Plan Plan Arch angiogram and L UE venogram If suitable inflow and outflow, will perform AVG Kirk Laurent MD Jul 11, 2017 14:56
[2017-07-11] MEDS ORDERED: FAMOTIDINE 20 MG/2 ML VIAL ONE (15:16)
--- NOTE | 2017-07-11 17:45 | HHI.PR ---
Immediate Post Op Note Procedure Date: Jul 11, 2017 Pre Op Diagnosis: ESRD, multiple failed HD access Post Op Diagnosis: ESRD, multiple failed HD access Surgeon: Kirk Laurent Baby Sitter(s): Jayant Oliver, MS4 Procedure: 1. L UE venogram 2. U/S guided access to L brachial vein 3. Thoracic aortogram w/ L UE angiogram 4. L Ax-Ax AVG (6mm PTFE) Findings: patent central veins Bovine arch no arterial inflow lesions Additional Information: + thrill + Doppler signal at wrist after AVG Complications: none Specimen(s) removed: none Estimated blood loss: 100mL Anesthesia: General Drains: None Fluids: 600mL IVF Urinary Output (mLs): 0 Tourniquet time (min at mmHg) N/A Patient to: PACU Patient Condition: Good Implant/Devices: SEE IMPLANT LOG (if applicable) Date/Time of Procedure: SEE SURGICAL CARE RECORD Kirk Laurent MD Jul 11, 2017 17:45
[2017-07-11] MEDS ORDERED: DO NOT ADM ANY ANTICOAGULANT DRUGS PRN ×2 (17:50)
[2017-07-11] MEDS ORDERED: *morphine SULFATE 8 MG/ML PERIprocedure ONLY ONE ×2 (18:11→18:44)
[2017-07-11] MEDS ORDERED: PILL SPLITTER OTHER PRN (19:00)
[2017-07-11] MEDS ORDERED: *HYDROmorphone PF 1 MG VIAL PERIprocedural Use ONLY ONE (19:25)
[2017-07-11 19:55] VITALS: PULSE 69
[2017-07-11 20:00] VITALS: BP 164/87; PULSE 63; PULSE 68; RESP 18; TEMP 97.5; O2SAT 95
[2017-07-11 21:00] VITALS: PULSE 98
[2017-07-11] MEDS: HYDROmorphone HCL 2 MG TAB PO PRN (21:22)
[2017-07-11] MEDS: CALCIUM ACETATE 667 MG CAP PO SCH (21:22)
[2017-07-11 22:00] VITALS: PULSE 65
[2017-07-11 23:30] VITALS: BP 129/64; PULSE 68; PULSE 77; RESP 18; TEMP 97.6; O2SAT 97
[2017-07-12] VITALS (13 sets, daily range): BP systolic 141–164; BP diastolic 78–87; PULSE 50–67; RESP 16–19; TEMP 97.5–97.9; O2SAT 99–100
[2017-07-12] MEDS: HYDROmorphone HCL 2 MG TAB PO PRN ×2 (03:13→09:31)
--- NOTE | 2017-07-12 07:56 | PD.VS.PN ---
Subjective POD #: 1 Procedure(s): L UE ax-ax loop with PTFE Subjective/Hospital Course rested well, arm ok; hand ok Objective Vitals/I&O Date Time Temp Pulse Resp B/P (MAP) Pulse Ox O2 Delivery O2 Flow Rate FiO2 07/12/17 06:00 53 07/12/17 05:00 58 07/12/17 04:00 64 07/12/17 03:10 97.6 67 16 141/81 (101) 100 07/12/17 03:00 53 07/12/17 02:00 58 07/12/17 01:00 54 07/12/17 00:00 67 07/11/17 23:30 68 07/11/17 23:30 97.6 77 18 129/64 (85) 97 07/11/17 22:00 65 07/11/17 21:00 98 07/11/17 20:00 68 07/11/17 20:00 97.5 63 18 164/87 (112) 95 07/11/17 19:55 69 07/11/17 19:35 64 16 161/91 (114) 96 Room Air 07/11/17 19:15 65 16 167/92 (117) 96 Room Air 07/11/17 19:00 65 16 152/82 (105) 98 Room Air 07/11/17 18:45 69 16 162/83 (109) 98 Room Air 07/11/17 18:30 55 16 176/87 (116) 96 Room Air 07/11/17 18:15 70 16 156/91 (112) 99 Room Air 07/11/17 18:00 58 16 180/90 (120) 97 Room Air 07/11/17 17:47 97.2 62 16 180/85 (116) 97 Simple Mask 8 07/11/17 11:30 98.5 56 20 142/94 (110) 99 07/12/17 07/12/17 07/12/17 07:00 15:00 23:00 Intake Total 960 ml Balance 960 ml Exam: + thrill L UE incision ok Laboratory Laboratory Tests Test 07/11/17 12:42 White Blood Count 5.0 Red Blood Count 3.83 Hemoglobin 11.8 Hematocrit 35.5 Mean Corpuscular Volume 92.6 Mean Corpuscular Hemoglobin 30.9 Mean Corpuscular Hemoglobin Concent 33.3 Red Cell Distribution Width 13.2 Platelet Count 129 Mean Platelet Volume 9.1 Neutrophils (%) (Auto) 67.5 Lymphocytes (%) (Auto) 22.5 Monocytes (%) (Auto) 8.4 Eosinophils (%) (Auto) 0.9 Basophils (%) (Auto) 0.7 Neutrophils # (Auto) 3.4 Lymphocytes # (Auto) 1.1 Monocytes # (Auto) 0.4 Eosinophils # (Auto) 0.0 Basophils # (Auto) 0.0 CBC Comment DIFF FINAL Differential Comment Prothrombin Time 12.2 Prothromb Time International Ratio 1.1 Blood Urea Nitrogen 16 Creatinine 4.10 Random Glucose 84 Calcium Level 8.7 Sodium Level 140 Potassium Level 4.0 Chloride Level 109 Carbon Dioxide Level 24.0 Anion Gap 7 Estimat Glomerular Filtration Rate 15 Assessment and Plan Plan POD#1 Patent AVG ready for DC needs to continue to use HD catheter until cleared for use as outpatient ( usually about a month) Discharge Planning today RTC 2-3 weeks Kirk Laurent MD Jul 12, 2017 07:56
[2017-07-12] MEDS ORDERED: PERC5TAB12 PO (08:52)
--- NOTE | 2017-07-12 08:59 | PD.VS.DC ---
Discharge Summary Admission Date: Jul 11, 2017 at 17:50 Discharge Date: Jul 12, 2017 Admission Diagnosis: (1) AV fistula occlusion (2) AVF (arteriovenous fistula) (3) End stage renal disease Discharge Diagnosis: (1) AV fistula occlusion ICD Codes: T82.898A - Other specified complication of vascular prosthetic devices, implants and grafts, initial encounter Status: Acute (2) AVF (arteriovenous fistula) ICD Codes: I77.0 - Arteriovenous fistula, acquired Status: Chronic (3) End stage renal disease ICD Codes: N18.6 - End stage renal disease Status: Chronic Brief History from admission 52 yo male with multiple HD access attempts B UE, currently getting HD via R chest catheter. Last had L brach-ax with bovine pericardium that is occluded. Presents for angiogram/venogram and possible new access creation in L UE Procedure(s): L UE ax-ax loop with PTFE Significant Findings Palpable thrill L UE near AVF L palpable radial pulse Denies hand pain BUE warm w/o motor deficits Laboratory Tests Test 07/11/17 12:42 Red Blood Count 3.83 MIL/MM3 (4.50-5.90) Hemoglobin 11.8 GM/DL (13.0-17.0) Hematocrit 35.5 % (39.0-51.0) Platelet Count 129 TH/MM3 (150-450) Monocytes (%) (Auto) 8.4 % (0.0-8.0) Prothrombin Time 12.2 SEC (9.8-11.6) Creatinine 4.10 MG/DL (0.60-1.30) Chloride Level 109 MEQ/L (98-107) Estimat Glomerular Filtration Rate 15 ML/MIN (>89) Hospital Course: 52 yo male with multiple HD access attempts B UE, currently getting HD via R chest catheter. Last had L brach-ax with bovine pericardium that is occluded. Presents for angiogram/venogram and possible new access creation in L UE Pt s/p L UE AVF revision w/o complications palpable thrill No motor deficits F/U in 2W Allergies Coded Allergies Type Severity Reaction Last Updated Verified codeine Allergy Unknown Hives 07/11/17 No Recent Impressions Chest X-Ray 07/11/17 1108 Signed Impressions: Service Date/Time: June 11:28 - CONCLUSION: No acute disease Tyrone Galvan MD 07/10/17 07/10/17 07/11/17 07/11/17 07/12/17 07/12/17 06:00 18:00 06:00 18:00 06:00 18:00 Intake Total 600 ml 960 ml Output Total 100 ml Balance 500 ml 960 ml Intake Oral 960 ml Other 600 ml Output Estimated Blood Loss 100 ml # Voids 1 # Bowel Movements 0 Laboratory Tests Test 07/11/17 12:42 White Blood Count 5.0 TH/MM3 Red Blood Count 3.83 MIL/MM3 Hemoglobin 11.8 GM/DL Hematocrit 35.5 % Mean Corpuscular Volume 92.6 FL Mean Corpuscular Hemoglobin 30.9 PG Mean Corpuscular Hemoglobin Concent 33.3 % Red Cell Distribution Width 13.2 % Platelet Count 129 TH/MM3 Mean Platelet Volume 9.1 FL Neutrophils (%) (Auto) 67.5 % Lymphocytes (%) (Auto) 22.5 % Monocytes (%) (Auto) 8.4 % Eosinophils (%) (Auto) 0.9 % Basophils (%) (Auto) 0.7 % Neutrophils # (Auto) 3.4 TH/MM3 Lymphocytes # (Auto) 1.1 TH/MM3 Monocytes # (Auto) 0.4 TH/MM3 Eosinophils # (Auto) 0.0 TH/MM3 Basophils # (Auto) 0.0 TH/MM3 CBC Comment DIFF FINAL Differential Comment Prothrombin Time 12.2 SEC Prothromb Time International Ratio 1.1 RATIO Blood Urea Nitrogen 16 MG/DL Creatinine 4.10 MG/DL Random Glucose 84 MG/DL Calcium Level 8.7 MG/DL Sodium Level 140 MEQ/L Potassium Level 4.0 MEQ/L Chloride Level 109 MEQ/L Carbon Dioxide Level 24.0 MEQ/L Anion Gap 7 MEQ/L Estimat Glomerular Filtration Rate 15 ML/MIN Orders Procedure Category Date Status Time Prothrombin Time / LAB 07/11/17 Complete Inr (Pt) 10:45 Basic Metabolic Panel LAB 07/11/17 Complete (Bmp) 10:45 Complete Blood Count LAB 07/11/17 Complete With Diff 10:45 Type And Screen BBK 07/11/17 Complete 10:45 Chest, Single Ap RADDIAG 07/11/17 Resulted 11:08 Lactated Ringer's MED 07/11/17 In Process 1000 Ml Inj (Lr 1000 M 12:30 Sodium Chlorid 0.9% MED 07/11/17 In Process 500 Ml Inj (Ns 500 M 12:30 Chlorhexidine 2% MED 07/11/17 In Process Cloth (Chlorhexidine 12:30 Insulin Human Regular MED 07/11/17 In Process Inj (Novolin R Inj 12:30 Metoprolol Tartrate MED 07/11/17 In Process (Lopressor) 12:30 Povidone Iod 5% MED 07/11/17 In Process Antisepsis Kit 12:30 Protamine Sulfate Inj MED 07/11/17 Complete (Protamine Sulfate 14:52 Heparin Inj (Heparin MED 07/11/17 Complete Inj) 14:52 Vancomycin Inj MED 07/11/17 Complete (Vancomycin Inj) 14:52 Bupivacaine Pf 0.5% MED 07/11/17 Complete Inj (Marcaine Pf 0.5 14:52 Thrombin [place] MED 07/11/17 Complete (Thrombin [place]) 14:52 Heparin-Ns/Pf Inj MED 07/11/17 Complete (Heparin-Ns/Pf Inj) 14:52 Cefazolin 2 Gm Premix MED 07/11/17 Complete (Ancef 2 Gm Premix 14:52 Famotidine Inj MED 07/11/17 Complete (Pepcid Inj) 15:16 Endovascular Cath CATH 07/11/[address] In Observation ADMITTING 07/11/17 Transmitted Code Status CODE 07/11/17 Transmitted 17:45 Vital Signs (Adult) DESHAWN 07/11/17 Complete 17:45 Room Maid / DESHAWN 07/11/17 In Process Telemetry 17:45 Activity Oob Ad Tanika DESHAWN 07/11/17 In Process 17:[address] Estrellita HESS 07/11/17 In Process 17:45 Precautions DESHAWN 07/11/17 In Process 17:45 Diet Heart Healthy DIET 07/11/17 Transmitted Dinner Basic Metabolic Panel LAB 07/12/17 In Process (Bmp) 06:00 Consult Nephrology CONS 07/11/17 Transmitted Hydromorphone MED 07/11/17 In Process (Dilaudid) 17:45 Scd Bilateral/Knee DESHAWN 07/11/17 In Process High 17:45 Amlodipine (Norvasc) MED 07/12/17 In Process 09:00 Calcium Acetate MED 07/11/17 In Process (Phoslo) 18:00 Varenicline (Chantix) MED 07/12/17 Pending 09:00 Aspirin (Aspirin) MED 07/12/17 In Process 09:00 [facility] Nursing MED 07/11/17 In Process Information 17:50 *Morphine Inj MED 07/11/17 Complete (*Morphine Inj 18:11 [facility] [place] Complete (Hub Use Only)Inp Phy CONS 07/11/17 Transmitted Cons/Ref Heparin Inj (Heparin MED 07/12/17 In Process Inj) 17:00 *Morphine Inj MED 07/11/17 Complete (*Morphine Inj 18:44 Pill Splitter (Pill MED 07/11/17 In Process Splitter) 19:00 *Hydromorphone Pf Inj MED 07/11/17 Complete (*Dilaudid Pf Inj 19:25 [facility] Nursing MED 07/11/17 In Process Information 17:50 Class Iv Pacu Ea 30 [facility] 07/11/17 Complete MIN General/Pacu [facility] 07/11/17 Complete Post Anesthesia Oxygen [facility] 07/11/17 Complete Attending Discharge DISCHARGE 07/12/17 Transmitted Order Vital Signs Date Time Temp Pulse Resp B/P (MAP) Pulse Ox O2 Delivery O2 Flow Rate FiO2 07/12/17 06:00 53 07/12/17 05:00 58 07/12/17 04:00 64 07/12/17 03:10 97.6 67 16 141/81 (101) 100 07/12/17 03:00 53 07/12/17 02:00 58 07/12/17 01:00 54 07/12/17 00:00 67 07/11/17 23:30 68 07/11/17 23:30 97.6 77 18 129/64 (85) 97 07/11/17 22:00 65 07/11/17 21:00 98 07/11/17 20:00 68 07/11/17 20:00 97.5 63 18 164/87 (112) 95 07/11/17 19:55 69 07/11/17 19:35 64 16 161/91 (114) 96 Room Air 07/11/17 19:15 65 16 167/92 (117) 96 Room Air 07/11/17 19:00 65 16 152/82 (105) 98 Room Air 07/11/17 18:45 69 16 162/83 (109) 98 Room Air 07/11/17 18:30 55 16 176/87 (116) 96 Room Air 07/11/17 18:15 70 16 156/91 (112) 99 Room Air 07/11/17 18:00 58 16 180/90 (120) 97 Room Air 07/11/17 17:47 97.2 62 16 180/85 (116) 97 Simple Mask 8 07/11/17 11:30 98.5 56 20 142/94 (110) 99 Discharge Condition: Good Discharge Disposition: Discharge Home Discharge Instructions: Report any new onset fever, chills, HAND pain Report any new onset increased redness, drainage or swelling (incision site) Activities as tolerated No heavy lifting L UE for 2W Resume a renal diet Continue a daily walking regimen May shower then pat dry incision NO tub baths/swimming until incision is fully healed Call the office with any questions or concerns Charline BUTTS [facility] [phone] Any questions or concerns: Call [facility] [phone] Charline Mason Jul 12, 2017 08:59
[2017-07-12] MEDS ORDERED: VARENICLINE 0.5 MG TAB PO SCH (09:00)
[2017-07-12] MEDS ORDERED: ASPIRIN 325 MG TAB PO SCH (09:00)
[2017-07-12] MEDS: CALCIUM ACETATE 667 MG CAP PO SCH (09:30)
[2017-07-12 09:32] LABS: BICARBONATE 21.5 MEQ/L (21.0-32.0); POTASSIUM 4.4 MEQ/L (3.5-5.1)
--- NOTE | 2017-07-12 09:32 | MP ---
cc: TRINY LAURENT MD DATE OF SURGERY: 07/11/2017 PREOPERATIVE DIAGNOSIS End-stage renal disease, multiple failed dialysis access attempts and need for dialysis access. POSTOPERATIVE DIAGNOSIS End-stage renal disease, multiple failed dialysis access attempts and need for dialysis access. PROCEDURE 1. Ultrasound-guided access to the left brachial vein. 2. Superior vena cavogram. 3. Thoracic aortogram with left upper extremity angiogram. 4. Left axillary artery to axillary vein arteriovenous graft was 6 mm PTFE. ATTENDING SURGEON Triny Laurent. MAINTENANCE SHOP TECHNICIAN Jayant Oliver MS IV ANESTHESIA General. INDICATIONS Mr. Streeter is a gentleman with multiple failed upper extremity dialysis access attempts. He is currently dialyzing through a right chest catheter. He is right-handed. After discussion was held with the patient he was offered an angiogram, venogram and potential left upper extremity access. Intraoperatively it was found he had no arterial inflow lesions and had normal venous outflow at least in the central veins and based on this an access loop was created. DESCRIPTION OF PROCEDURE Informed consent was obtained from the patient. He was taken to the operating room and placed supine on the operating table. An appropriate timeout was taken to ensure the patient's identity, operative site and planned procedure. The administration of a gram of vancomycin was initiated prior to skin incision and will be discontinued after the single preoperative dose. Everyone in the room agreed with the timeout and we proceeded. His left arm was extended and under ultrasonographic guidance a 21-gauge micropuncture needle was used to access the left brachial vein. This was exchanged using Seldinger's technique for a micropuncture sheath through which a venogram was obtained. Venographic imaging showed patent axillary, subclavian and central venous outflow back to the heart. The micropuncture sheath was removed and pressure was held for hemostasis. His groins and left arm were then prepped and draped. A 21-gauge micropuncture needle was used to access the right common femoral artery. This was exchanged using Seldinger's technique for a micropuncture sheath through which a 0.035 Glidewire was introduced and the micropuncture sheath was exchanged for a 5 [place] sheath. A pigtail Flush catheter was placed over the wire and through the sheath, and a thoracic aortogram was obtained. The Glidewire was reintroduced and the pigtail was exchanged for a vertebral catheter and the vertebral catheter was used to cannulate the subclavian, axillary and brachial arteries. A left upper extremity arteriograms was obtained. The wire, catheter and sheath were removed and the groin was closed with an Angio-Seal. The arteriographic images showed the patient had a bovine trunk but no stenosis of the left subclavian, axillary or brachial arteries. There was a clear prior brachial-based arteriovenous graft that was occluded. We then turned our attention toward performing the bypass graft having confirmed the inflow and outflow arterial and venous sources respectively. An incision was made in the axilla, carried down to the subcutaneous tissue with electrocautery. Some scar tissue from the previous axillary vein anastomosis was encountered and we dissected the axillary artery and axillary vein free. A 6 mm PTFE was brought up on the field. A separate incision was made down to the antecubital and a tunnel was created between the axillary artery and the separate incision and then a curved tunnel was created back from the separate incision back to the axillary vein. 6 mm PTFE was passed through all these tunnels taking caution not to twist it. The patient has systemically heparinized with 3000 units of IV heparin. Proximal and distal control of the axillary artery was obtained with profunda clamps and a longitudinal arteriotomy was made with an 11 blade and extended with [place] scissors. The graft was spatulated and sewn end-to-side to the axillary artery with running 5-0 [place]oret[place]-Jv suture. At the completion it was flushed and noted to be hemostatic. Surgicel was placed around the graft as the graft was clamped with a No Softjaw. Proximal and distal control of the venous outflow was obtained with profunda clamps and a longitudinal venotomy was made with an 11 blade and extended with Riccardo scissors. The graft was spatulated and sewn end-to-side to the axillary vein with running 5-0 Loret[place]-Jv sutures. At the completion it was flushed and noted to be hemostatic. There was a nice thrill in the graft, Doppler signal at the wrist. The heparin was reversed with protamine. The wound was infiltrated with Marcaine and closed with 2-0 Polysorb, 3-0 Polysorb and 4-0 Monocryl. The counter incision was closed with 3-0 Polysorb and 4-0 Monocryl. There were no complications. I was present and scrubbed and performed the entire procedure. MD MORGAN Caballero /8:21 PM /8:59 AM
[2017-07-12] MEDS ORDERED: HEPARIN SODIUM - SQ 10,000 UNITS/ML VIAL SQ SCH (17:00)
== END 2017-07-12 12:47 | disposition home or self-care (01) ==
LOC: HCVO 10:26 → HSDI 17:50 → HCPC 19:35
PROVIDERS: ADMIT Surgery; ATTEND Surgery
DX: I77.0 Arteriovenous fistula, acquired (principal); I12.0 Hypertensive chronic kidney disease with stage 5 chronic kidney disease or end stage renal disease; N18.6 End stage renal disease
CPT/HCPCS: 01844; 36005; 36246; 36821; 71010; 75710; 76937; 80048; 85025; 85610; 86850; 86900; 86901; C1769; G0378; J1100; J1170; J1644; J2250; J2270; J2370; J2405; J2720; J3010; J3370; Q9967; J0690

== ENCOUNTER 2018-08-27 09:08 | Inpatient (IN) ==
--- NOTE | 2018-08-27 09:29 | ED ---
HPI General Chief Complaint: Chest Pain Stated Complaint: Cardiac Time Seen by Provider: 08/27/18 09:19 Source: patient Mode of arrival: EMS History of Present Illness HPI narrative: Patient is a 53-year-old male with history of end-stage renal disease who was is supposed to be on hemodialysis via his permacath, presents to the emergency room with complaints of chest pain. Patient reports that he woke up with chest pain this morning, chest pain is located to his left chest. Patient reports that chest pain feels he gets sharp cramping sensation to his left chest, reports pain is 5 out of 10. Patient reports that he has had similar pains in the past but they usually go away by itself. Patient reports today, pain is been persistent. Patient reports that nothing makes the chest pain better or worse. Denies any diaphoresis or nausea or vomiting with the symptoms. Patient does report history of hypertension, reports history of end- stage renal disease currently with a permacath in place. Patient reports that he has not had dialysis in over 3 months as he decided to stop his dialysis as he did not want it. Reports that he has no home care associate, he has not follow-up with a primary care doctor. He does make some urine daily. Overall, patient is alert to person but does appear very confused and is a very poor historian Related Data Home Medications Medication Instructions Recorded Confirmed No Known Home Medications 08/27/18 08/27/18 Allergies Allergy/AdvReac Type Severity Reaction Status Date / Time codeine Allergy Unknown Hives Verified 08/27/18 10:12 Review of Systems ROS: all other systems reviewed are negative PMFSH History History Provided By: Patient Medical History Medical History Hypertension (Acute) Kidney failure (Acute) Surgical History Surgical History No history of previous surgery (Acute) Social History Social History Smoking Status: Former smoker How Often Do You Have a Drink Containing Alcohol: Never Recent Travel in [facility] within the Last 8 Weeks: No Recent Out of Country Travel within the Last 8 Weeks: No Exam Narrative Exam Narrative: GENERAL: Moderate distress SKIN: Focused skin assessment warm/dry. HEAD: Atraumatic. Normocephalic. EYES: Pupils equal and round. No scleral icterus. No injection or drainage. ENT: No nasal bleeding or discharge. Mucous membranes pink and moist. NECK: Trachea midline. No JVD. CARDIOVASCULAR: Regular rate and rhythm. No murmur appreciated. Permacath to the right chest. RESPIRATORY: No accessory muscle use. Clear to auscultation. Breath sounds equal bilaterally. GASTROINTESTINAL: Abdomen soft, non-tender, distended abdomen. Hepatic and splenic margins not palpable. MUSCULOSKELETAL: No obvious deformities. No clubbing. No cyanosis. No edema. NEUROLOGICAL: Awake and alert. No obvious cranial nerve deficits. Motor grossly within normal limits. Normal speech. PSYCHIATRIC: Appropriate mood and affect; insight and judgment normal. Course Initial Documented Vital Signs Temperature 98 F 08/27/18 09:15 Pulse Rate 100 H 08/27/18 09:15 Respiratory Rate 18 08/27/18 09:15 Blood Pressure 173/132 H 08/27/18 09:15 Pulse Oximetry 96 08/27/18 09:15 Last Documented Vital Signs Temperature 98 F 08/27/18 09:15 Pulse Rate 48 L 08/27/18 10:42 Respiratory Rate 16 08/27/18 10:42 Blood Pressure 195/82 H 08/27/18 10:42 Pulse Oximetry 98 08/27/18 10:42 Critical Care Time Critical Care Time: Yes Total Critical Care Time: 30 Attestation: Aggregate critical care time was 30 minutes. Time to perform other separately billable procedures was not included in the critical care time. My time did not include minutes spent treating any other patients simultaneously or on activities that did not directly contribute to the patient's treatment. The services I provided to this patient were to treat and/or prevent clinically significant deterioration that could result in: , decompensation, deterioration I provided critical care services requiring my management, as noted below: Chart data review, documentation time, medication orders and management, vital sign assessments/reviewing monitor data, ordering and reviewing lab tests, ordering and interpreting/reviewing x-rays and diagnostic studies, care of the patient and discussion of the patient with the admitting physicians. Medical Decision Making MDM Narrative Medical decision making narrative: During the course of the patients emergency department visit, the patients history, examination, and differential diagnosis were reviewed with the patient. The patient was placed on a registered nurse cardiac with oximetry and frequent blood pressure monitoring. The patient had an IV access obtained and blood work sent for analysis. The patient was initially provided aspirin as well as SL nitro The patients laboratory studies were reviewed and remarkable for: wbc 6.0, hgb 10.4, hct 31.4, platelets 130 INR 1.2 sodium 132, bun 170, cr 19.95, trop 0.08 I have reviewed patient's chart - Patient was last seen by Dr. Garduno - call made to Dr. Garduno for his uremia as he will need dialysis Patient will require admission to the hospital Case reviewed with Dr. Garduno - he has seen patient in the past in his practice - he just dissappeared from the practice and he was unable to get a hold of him - will see him in consult. Will attempt to have him dialized today case reviewed with Dr. Mcdonough who accepts pt to service Medical Screen Exam Complete: Yes Emergency Medical Condition: Yes Differential Diagnosis Differential Diagnosis: ACS, arrhythmia, end-stage renal disease, electrolyte abnormality Lab Data Result diagrams: 08/27/18 09:22 08/27/18 09:22 Lab Results 08/27/18 08/27/18 08/27/18 Range/Units 09:22 09:22 09:22 WBC 6.0 (4.0-11.0) th/mm3 RBC 3.35 L (4.50-5.90) mil/mm3 Hgb 10.4 L (13.0-17.0) gm/dL Hct 31.4 L (39.0-51.0) % MCV 93.7 (80.0-100.0) fL MCH 30.9 (27.0-34.0) pg MCHC 33.0 (32.0-36.0) % RDW 14.3 (11.6-17.2) % Plt Count 130 L (150-450) th/mm3 MPV 9.6 (7.0-11.0) fL Neut % (Auto) 80.5 H (16.0-70.0) % Lymph % (Auto) 11.0 (9.0-44.0) % Smith % (Auto) 6.5 (0.0-8.0) % Eos % (Auto) 1.3 (0.0-4.0) % Baso % (Auto) 0.7 (0.0-2.0) % Neut # (Auto) 4.8 (1.8-7.7) th/mm3 Lymph # (Auto) 0.7 L (1.0-4.8) th/mm3 Smith # (Auto) 0.4 (0.0-0.9) th/mm3 Eos # (Auto) 0.1 (0.0-0.4) th/mm3 Baso # (Auto) 0.0 (0.0-0.2) th/mm3 WBC Differential . Differential Comment Auto diff final PT 12.3 H (9.8-11.6) sec INR 1.2 Ratio APTT 31.8 H (23.4-31.7) sec Sodium 132 L (136-145) meq/L Potassium 3.6 (3.5-5.1) meq/L Chloride 100 (98-107) meq/L Carbon Dioxide 10.3 L (21.0-32.0) meq/L Anion Gap 22 H (5-15) meq/L BUN 170 H (7-18) mg/dL Creatinine 19.95 H* (0.60-1.30) mg/dL Estimated GFR 2 L (>89) mL/min Random Glucose 102 (74-106) mg/dL Calcium Less than 5.0 L* (8.5-10.1) mg/dL Prot Corrected Calcium Less than 5.3 L* (8.5-10.1) mg/dL Magnesium 1.5 (1.5-2.5) mg/dL Total Bilirubin 0.3 (0.2-1.0) mg/dL AST 20 (15-37) U/L ALT 16 (12-78) U/L Alkaline Phosphatase 55 (45-117) U/L Ammonia (11-32) mcmol/L Total Creatine Kinase 618 H (39-308) U/L CK-MB (CK-2) 14.2 H (0.5-3.6) ng/mL CK-MB (CK-2) % 2.3 (0.0-4.0) % Troponin I 0.08 H (0.02-0.05) ng/mL Total Protein 6.3 L (6.4-8.2) g/dL Albumin 3.2 L (3.4-5.0) g/dL Lipase 747 H (73-393) U/L Serum Alcohol Less than 3 (0-5) mg/dL 08/27/18 Range/Units 09:22 WBC (4.0-11.0) th/mm3 RBC (4.50-5.90) mil/mm3 Hgb (13.0-17.0) gm/dL Hct (39.0-51.0) % MCV (80.0-100.0) fL MCH (27.0-34.0) pg MCHC (32.0-36.0) % RDW (11.6-17.2) % Plt Count (150-450) th/mm3 MPV (7.0-11.0) fL Neut % (Auto) (16.0-70.0) % Lymph % (Auto) (9.0-44.0) % Smith % (Auto) (0.0-8.0) % Eos % (Auto) (0.0-4.0) % Baso % (Auto) (0.0-2.0) % Neut # (Auto) (1.8-7.7) th/mm3 Lymph # (Auto) (1.0-4.8) th/mm3 Smith # (Auto) (0.0-0.9) th/mm3 Eos # (Auto) (0.0-0.4) th/mm3 Baso # (Auto) (0.0-0.2) th/mm3 WBC Differential Differential Comment PT (9.8-11.6) sec INR Ratio APTT (23.4-31.7) sec Sodium (136-145) meq/L Potassium (3.5-5.1) meq/L Chloride (98-107) meq/L Carbon Dioxide (21.0-32.0) meq/L Anion Gap (5-15) meq/L BUN (7-18) mg/dL Creatinine (0.60-1.30) mg/dL Estimated GFR (>89) mL/min Random Glucose (74-106) mg/dL Calcium (8.5-10.1) mg/dL Prot Corrected Calcium (8.5-10.1) mg/dL Magnesium (1.5-2.5) mg/dL Total Bilirubin (0.2-1.0) mg/dL AST (15-37) U/L ALT (12-78) U/L Alkaline Phosphatase (45-117) U/L Ammonia 19 (11-32) mcmol/L Total Creatine Kinase (39-308) U/L CK-MB (CK-2) (0.5-3.6) ng/mL CK-MB (CK-2) % (0.0-4.0) % Troponin I (0.02-0.05) ng/mL Total Protein (6.4-8.2) g/dL Albumin (3.4-5.0) g/dL Lipase (73-393) U/L Serum Alcohol (0-5) mg/dL Imaging Data Radiologist's impression: Chest X-Ray 08/27/18 09:19 CONCLUSION: Negative chest. I do not see an etiology for the shortness of breath ECG Data EKG Prior to Arrival: Yes Attestation: I personally reviewed and interpreted this ECG as follows: Interpretation: EKG at 0917: NSR at 94bpm, qt/qtc: 435/487, st seg depression with t wave inversion V2-V6 Discharge Plan Discharge Disposition Patient Disposition: 30 Still Patient Discharge Condition Condition: Serious Discharge Details Diagnosis: Acute uremia, Elevated troponin, Hypocalcemia Physicians Team ED Provider: Winsome Aldana Primary Care Provider: Primary Care Vin,No Other Providers: Julio Cesar Garduno Rxs /Orders / Referrals /Forms Prescriptions: No Action No Known Home Medications RF: 0 Discharge Instructions Patient Printed Instructions: Chest Pain (ED) Status ED Status: Pending Admission
[2018-08-27 09:35] LABS: Baso % (Auto) 0.7 % (0.0-2.0); Eos # (Auto) 0.1 th/mm3 (0.0-0.4); Eos % (Auto) 1.3 % (0.0-4.0); Hematocrit 31.4 % (39.0-51.0); Hemoglobin 10.4 gm/dL (13.0-17.0); Lymph # (Auto) 0.7 th/mm3 (1.0-4.8); Mean Corpuscular Hemoglobin 30.9 pg (27.0-34.0); Mean Corpuscular Volume 93.7 fL (80.0-100.0); Mean Platelet Volume 9.6 fL (7.0-11.0); Mono # (Auto) 0.4 th/mm3 (0.0-0.9); Mono % (Auto) 6.5 % (0.0-8.0); Neut # (Auto) 4.8 th/mm3 (1.8-7.7); Neut % (Auto) 80.5 % (16.0-70.0); Platelet Count 130 th/mm3 (150-450); Red Blood Count 3.35 mil/mm3 (4.50-5.90); Red Cell Distribution Width 14.3 % (11.6-17.2)
[2018-08-27 09:47] LABS: Activated Partial Thrombo Time 31.8 sec (23.4-31.7); INR 1.2 Ratio; Prothrombin Time 12.3 sec (9.8-11.6)
--- NOTE | 2018-08-27 10:10 | XR ---
EXAM DATE: 08/27/2018 9:48 AM EST AGE/SEX: 53 years / Male INDICATIONS: Shortness of breath. CLINICAL DATA: This is the patient's initial encounter. Patient reports that signs and symptoms have been present for 4 - 6 days and indicates a pain score of 0/10. MEDICAL/SURGICAL HISTORY: Gastroesophageal reflux disease. Renal failure, polycystic kidney dis ease. . AV fistula, the bile. COMPARISON: [facility] [place]ST SING[place], 07/11/2017. . FINDINGS: Dialysis catheter in good position. Lungs are clear. Cardiac silhouette is appropriate. The portion o f the bony skeleton visualized is unremarkable. CONCLUSION: Negative chest. I do not see an etiology for the shortness of breath Electronically signed by: Antelmo Ortiz MD 08/27/2018 10:09 AM EST
[2018-08-27 10:21] LABS: Alanine Aminotransferase 16 U/L (12-78); Albumin 3.2 g/dL (3.4-5.0); Alkaline Phosphatase 55 U/L (45-117); Anion Gap 22 meq/L (5-15); Aspartate Aminotransferase 20 U/L (15-37); Blood Urea Nitrogen 170 mg/dL (7-18); Carbon Dioxide 10.3 meq/L (21.0-32.0); Chloride 100 meq/L (98-107); Creatine Kinase 618 U/L (39-308); Glomerular Filtration Rate 2 mL/min (>89); Glucose,Random 102 mg/dL (74-106); Lipase 747 U/L (73-393); Magnesium 1.5 mg/dL (1.5-2.5); Potassium 3.6 meq/L (3.5-5.1); Sodium 132 meq/L (136-145); Total Protein 6.3 g/dL (6.4-8.2); Troponin I 0.08 ng/mL (0.02-0.05)
[2018-08-27 10:40] LABS: CKMB Percent 2.3 % (0.0-4.0); Creatine Kinase MB 14.2 ng/mL (0.5-3.6)
[2018-08-27] MEDS ORDERED: Calcium Gluconate Inj 2 GM in Dextrose 5% in Water Inj 100 ML IV.SIG ONE ×2 (10:45)
[2018-08-27] MEDS ORDERED: Acetaminophen 325 MG Tablet PO PRN ×2 (11:18→18:39)
--- NOTE | 2018-08-27 11:34 | ECG ---
Date Performed: 08/27/2018 Time Performed: 09:17:22 PTAGE: 53 years EKG: Sinus rhythm ST DEVIATION AND MODERATE T-WAVE ABNORMALITY, CONSIDER ANTEROLATERAL ISCHEMIA ABNORMAL ECG PREVIOUS TRACING : 07/31/2016 00.30 DOCTOR: Warren Llanos Interpretating Date/Time 08/27/2018 11:32:35
[2018-08-27] MEDS: Heparin - SQ 10,000 UNITS/ML Vial SQ SCH ×3 (12:30→22:52)
--- NOTE | 2018-08-27 12:48 | P.CONNP ---
<Caty Mcdaniels - Last Filed: 08/27/18 12:59> History of Present Illness Service: 08/27/18 Consult date: 08/27/18 Reason for Consult: ESRD Primary Care Provider: No Primary Care Physician Chief Complaint: Chest pain History of Present Illness: Patient is a 53 year old male who presented to the ED with chest pain. Patient stated his chest pain has subsided since coming to the ED. Patient was given nitroglycerin in the ED. Patient stated he gets chest pain off and on and it usually goes away on its own. Patient denies any nausea/ vomiting, SOB. Patient has a medical history of polycystic kidney disease, end-stage renal disease requiring dialysis, and hypertension. Patient is lucid but a poor historian. Patient unable to tell me when he started dialysis but stated he stopped getting dialysis about 3 months ago. Patient has a PermCath in place and reported an old AVF in the left arm. Patient stated he does not wish to do dialysis anymore and would prefer Hospice at this time. Per the dialysis nurse his current PermCath is not patent. If patient decides to do dialysis new access will need to be placed. Patient's creatinine was 19.95, BUN 170. Patient was told he could without dialysis but he still stated he didn't want to do dialysis. Psychiatry was consulted. Chest x-ray done 08/27 was unremarkable. Patient's was hypocalcemic and calcium gluconate was given. Patient is a former tobacco smoker and denies alcohol use and illicit drug use. Patient lives in [facility] with his girlfriend and is unemployed. Review of Systems All other systems reviewed negative except as stated in HPI PMFSH - History History Provided By: Patient - Medical History Medical History: Medical History (Last Reviewed 08/27/18 @ 09:26 by Winsome Aldana) Hypertension Kidney failure - Surgical History Surgical History: Surgical History (Last Reviewed 08/27/18 @ 09:26 by Winsome Aldana) No history of previous surgery - Tobacco History Smoking Status: Former smoker - Alcohol History How Often Do You Have a Drink Containing Alcohol: Never - Travel History Recent Travel in the [place] Within the Last 8 Weeks: No Recent Travel Out of the Country Within the Last 8 Weeks: No - Immunization History Tetanus Immunization: >5 Years Medications and Allergies Allergies Allergy/AdvReac Type Severity Reaction Status Date / Time codeine Allergy Unknown Hives Verified 08/27/18 10:12 Home Medications Medication Instructions Recorded Confirmed Type No Known Home Medications 08/27/18 08/27/18 History Active Medications: Active Medications Acetaminophen (Tylenol) 650 mg PO Q4H PRN PRN Reason: Temp > 100.4, pain 1-2 Heparin Sodium (Porcine) (Heparin Inj) 5,000 units SQ Q8H RUBA Last Admin: 08/27/18 12:32 Dose: Not Given Ondansetron HCl (Zofran Inj) 4 mg IV.PUSH Q6H PRN PRN Reason: NAUSEA OR VOMITING Senna/Docusate Sodium (Perla-Colace) 1 tab PO BID RUBA Sodium Chloride (Ns Flush) 2 ml IV.FLUSH UNSCH PRN PRN Reason: FLUSH AFTER USING IV ACCESS Exam Vital signs: Vital Signs 08/27/18 09:15 08/27/18 09:33 08/27/18 10:42 Temperature 98 F Pulse Rate 100 H 48 L Respiratory Rate 18 16 Blood Pressure 173/132 H 195/82 H Pulse Oximetry 96 100 98 Intake & Output 08/26/18 08/27/18 08/27/18 18:59 06:59 18:59 Weight 72.72 kg - Constitutional no acute distress - Routine HEENT Exam Head: Present: normocephalic Eye: Present: EOMI, PERRL ENT: Present: mucous membranes moist - Routine Neck Exam Present: trachea midline. Absent: JVD, tracheal deviation - Routine Respiratory Exam Present: CTA bilaterally. Absent: accessory muscle use, respiratory distress - Routine Cardiovascular Exam Present: RRR, murmur - Routine Abdominal Exam Present: normoactive bowel sounds, distended. Absent: soft, tenderness - Routine Extremities Exam Present: edema, vascular access Comments: Patient has mild bilateral edema in lower extremities. Patient has a PermCath placed right side of chest. - Routine Neurological Exam Present: alert Results - Lab Results 08/27/18 09:22 08/27/18 09:22 Most recent lab results Calcium Less than 5.0 mg/dL (8.5-10.1) L* 08/27/18 09:22 Magnesium 1.5 mg/dL (1.5-2.5) 08/27/18 09:22 Assessment and Plan - Assessment (1) End stage renal disease Code(s): N18.6 - End stage renal disease Status: Acute Plan: Patient has polycystic kidney disease which could have contributed to his End- Stage Renal Disease. Patient's creatinine is 19.95, BUN 170. Patient previously was getting dialysis but stopped. Patient is currently refusing dialysis treatments. Patient has a PermCath in place that is not patent, if he decides to do dialysis new access will need to be placed. Will continue to follow to determine if dialysis orders are needed. (2) Hypertension Code(s): I10 - Essential (primary) hypertension Status: Acute Plan: Monitor BP. (3) Delirium due to another medical condition Code(s): F05 - Delirium due to known physiological condition Status: Acute Plan: Consult to psych was placed. Will continue to monitor their recommendations. <Julio Cesar Garduno - Last Filed: 08/27/18 18:39> History of Present Illness Primary Care Provider: No Primary Care Physician [facility] - Medical History Medical History: Medical History (Last Reviewed 08/27/18 @ 09:26 by Winsome Aldana) Hypertension Kidney failure - Surgical History Surgical History: Surgical History (Last Reviewed 08/27/18 @ 09:26 by Winsome Aldana) No history of previous surgery Medications and Allergies Active Medications: Active Medications Acetaminophen (Tylenol) 650 mg PO Q4H PRN PRN Reason: Temp > 100.4, pain 1-2 Clonidine HCl (Catapres) 0.1 mg PO Q6H PRN PRN Reason: SBP> OR = 180, DBP> OR = 100 Last Admin: 08/27/18 14:13 Dose: 0.1 mg Heparin Sodium (Porcine) (Heparin Inj) 5,000 units SQ Q8H [facility] Last Admin: 08/27/18 12:32 Dose: Not Given Heparin Sodium (Porcine) (Heparin Central Flush) 0 unit IV.FLUSH DAILY PRN PRN Reason: SEE DOSE INSTRUCTIONS Vancomycin HCl 1,000 mg/ (Sodium Chloride) 250 mls @ 250 mls/hr IV.SIG [employer]OVERY COORDIN[employer] [facility] Stop: 08/30/18 14:59 Last Infusion: 08/27/18 16:41 Dose: Infused Cefazolin Sodium/Dextrose (Ancef 2 Gm Premix Inj) 2 gm in 50 mls @ 100 mls/hr IV.SIG [employer]GAN RECOVERY COORDINATOR [facility] Stop: 08/30/18 14:59 Last Infusion: 08/27/18 16:41 Dose: Infused Ondansetron HCl (Zofran Inj) 4 mg IV.PUSH Q6H PRN PRN Reason: NAUSEA OR VOMITING Senna/Docusate Sodium (Perla-Colace) 1 tab PO BID [facility] Sodium Chloride (Ns Flush) 2 ml IV.FLUSH UNSCH PRN PRN Reason: FLUSH AFTER USING IV ACCESS Sodium Chloride (Ns Flush) 0 ml IV.FLUSH PRN PRN PRN Reason: SEE DOSE INSTRUCTIONS Exam Vital signs: Vital Signs 08/27/18 09:15 08/27/18 09:33 08/27/18 10:42 Temperature 98 F Pulse Rate 100 H 48 L Respiratory Rate 18 16 Blood Pressure 173/132 H 195/82 H Pulse Oximetry 96 100 98 08/27/18 13:05 08/27/18 16:00 08/27/18 16:04 Temperature 98.8 F 98.7 F Pulse Rate 103 H 106 H Respiratory Rate 16 18 Blood Pressure 162/119 H 176/125 H Pulse Oximetry 100 98 98 Intake & Output 08/26/18 08/27/18 08/27/18 18:59 06:59 18:59 Intake Total 420 / 420 Balance 420 / 420 Weight 72.72 kg Intake: IV 420 / 420 Calcium Gluconate Inj 2 GM In 120 / 120 D5W Inj 100 ML @ 120 mls/hr IV. SIG ONCE ONE Rx#:[id number] Vancomycin Inj 1,000 MG In NS 250 / 250 Inj 250 ML @ 250 mls/hr IV.SIG [employer]OVERY COORDINATOR [facility] Rx#:[id number] Ancef 2 GM Premix Inj 2 gm In 50 / 50 50 ml @ 100 mls/hr IV.SIG [employer]GAN [employer]OVERY COORDINATOR [facility] Rx#:[id number] Results - Lab Results 08/27/18 09:22 08/27/18 09:22 Most recent lab results Calcium Less than 5.0 mg/dL (8.5-10.1) L* 08/27/18 09:22 Magnesium 1.5 mg/dL (1.5-2.5) 08/27/18 09:22 Assessment and Plan - Assessment (1) End stage renal disease Code(s): N18.6 - End stage renal disease Status: Acute (2) Hypertension Code(s): I10 - Essential (primary) hypertension Status: Acute (3) Delirium due to another medical condition Code(s): F05 - Delirium due to known physiological condition Status: Acute - Attending Attestation patient was seen and examined. Apparently he is not competent to take decision because of confusion. Seen by psychiatry. PermCath placement. He has severe hypocalcemia, will check phosphorus level. Anemia is noted, Epogen with dialysis. Order iron studies. He has ADPKD.
--- NOTE | 2018-08-27 12:49 | P.CONPSY ---
Provisional Diagnosis Admission Date: August 27, 2018 11:18 Ellery I.: Delirium due to underlying medical conditions, bipolar disorder History of Present Illness Service: ER Primary Care Provider: No Primary Care Physician History of Present Illness: The patient is a 53-year-old man, domiciled with girlfriend in [facility] , he has no kids, unemployed, supported by [facility], he has a psychiatric history of bipolar disorder, a psychiatric hospitalization in 1994, he was seen by me in 2017 due to delirium, at that moment he was on olanzapine 20 mg daily, he denies being in psychotropic at this moment, no previous suicidal attempts, with significant medical history of end-stage renal disease who was is supposed to be on hemodialysis via his permacath, and who presents to the emergency room with complaints of chest pain. Patient reports that he woke up with chest pain this morning, chest pain is located to his left chest. Patient reports that chest pain feels he gets sharp cramping sensation to his left chest, reports pain is 5 out of 10. Patient reports that he has had similar pains in the past but they usually go away by itself. Patient reports today, pain is been persistent. Patient reports that nothing makes the chest pain better or worse. Denies any diaphoresis or nausea or vomiting with the symptoms. Patient does report history of hypertension, reports history of end-stage renal disease currently with a permacath in place. Patient reports that he has not had dialysis in over 3 months as he decided to stop his dialysis as he did not want it. 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 He does make some urine daily. Overall, patient is alert to person but does appear very confused and is a very poor historian. The patients laboratory studies were reviewed and remarkable for: wbc 6.0, hgb 10.4, hct 31.4, platelets 130 INR 1.2 sodium 132, bun 170, cr 19.95, trop 0.08 QTC 494 He was consulted to psychiatry to address his decision-making capacity to refuse treatment and hemodialysis. On my psychiatric evaluation today I find a patient that is acutely/chronically ill, lethargic, confused, with prominent psychomotor retardation. The patient is distant, just superficially cooperative , he does not know at this moment the reason of his hospitalization, even though at some point he said that he came here because he was having chest pain. He tells me that he has some kind of problem with his kidneys and hemodialysis. The patient is oriented in person, partially oriented in place, he knows that he is in the hospital, but he does not know the city and state. The patient obtained that we are July 2012, does not know who is the president of denies states. He does say that he does not want to have dialysis , he says that dialysis could be painful, but he is unable to tell me what can happen with him if he does not get the dialysis as soon as possible. The patient is also unable to verbalize understanding of his current medical situation, prognosis, alternative potential treatments. He does present fluctuating level of consciousness, and at the end of the visit he seems to accept that he needs to dialysis as well as he expresses the desire to get better. He denies suicidal enemas ideation, he denies visual and auditory hallucinations in the past. PPHx: psychiatric history of bipolar disorder, a psychiatric hospitalization in 1994, he was seen by me in 2017 due to delirium, at that moment he was on olanzapine 20 mg daily, he denies being in psychotropic at this moment, no previous suicidal attempts, PMHx: with significant medical history of end-stage renal disease who was is supposed to be on hemodialysis via his permacath Family Hx: Mother and sister have bipolar disorder Substance Hx: He denies use of illegal drugs and alcohol Social Hx: Patient was born and raised in [place], he lives in [facility] with girlfriend, no kids, unemployed, supported by [facility] Review of Systems All other systems reviewed negative except as stated in HPI Constitutional: Reports anorexia, Reports lack of energy, Reports weight gain Gastrointestinal: Reports abdominal pain, Reports bloating, Reports nausea Psychiatric: Reports confusion, Reports mood swings PMFSH - History History Provided By: Patient - Medical History Medical History: Medical History (Last Reviewed 08/27/18 @ 09:26 by Winsome Aldana) Hypertension Kidney failure - Surgical History Surgical History: Surgical History (Last Reviewed 08/27/18 @ 09:26 by Winsome Aldana) No history of previous surgery - Tobacco History Smoking Status: Former smoker - Alcohol History How Often Do You Have a Drink Containing Alcohol: Never - Travel History Recent Travel in the [place] Within the Last 8 Weeks: No Recent Travel Out of the Country Within the Last 8 Weeks: No - Immunization History Tetanus Immunization: >5 Years Medications and Allergies Active Medications: Active Medications Acetaminophen (Tylenol) 650 mg PO Q4H PRN PRN Reason: Temp > 100.4, pain 1-2 Heparin Sodium (Porcine) (Heparin Inj) 5,000 units SQ Q8H [facility] Last Admin: 08/27/18 12:30 Dose: 5,000 units Ondansetron HCl (Zofran Inj) 4 mg IV.PUSH Q6H PRN PRN Reason: NAUSEA OR VOMITING Senna/Docusate Sodium (Perla-Colace) 1 tab PO BID [facility] Sodium Chloride (Ns Flush) 2 ml IV.FLUSH UNSCH PRN PRN Reason: FLUSH AFTER USING IV ACCESS Allergies Allergy/AdvReac Type Severity Reaction Status Date / Time codeine Allergy Unknown Hives Verified 08/27/18 10:12 Home Medications Medication Instructions Recorded Confirmed Type No Known Home Medications 08/27/18 08/27/18 History Exam Vital signs: Vital Signs 08/27/18 09:15 08/27/18 09:33 08/27/18 10:42 Temperature 98 F Pulse Rate 100 H 48 L Respiratory Rate 18 16 Blood Pressure 173/132 H 195/82 H Pulse Oximetry 96 100 98 Intake & Output 08/26/18 08/27/18 08/27/18 18:59 06:59 18:59 Weight 72.72 kg Narrative: Significant psychomotor retardation, lethargy, no tremors, no EPS, no withdrawal symptoms - Constitutional moderate distress - Routine HEENT Exam Head: Present: normocephalic, atraumatic Eye: Present: EOMI, PERRL ENT: Present: mucous membranes moist Mental Status Examination Appearance: Appropriate Consciousness: Somnolent, Clouded Orientation: x4 Motor Activity: Normal gait Speech: Unremarkable Language: Adequate Fund of Knowledge: Adequate Attention and Concentration: Adequate Memory: Impaired Mood: Oppositional Affect: Flat Thought Process & Associations: Loose associations Thought Content: Bizarre thinking Hallucination Type: None Delusion Type: None Suicidal Ideation: No Suicidal Plan: No Suicidal Intention: No Homicidal Ideation: No Homicidal Plan: No Homicidal Intention: No Insight: Poor Judgment: Poor Assessment and Plan - Assessment (1) Delirium due to another medical condition Code(s): F05 - Delirium due to known physiological condition Status: Acute (2) Acute uremia Code(s): N19 - Unspecified kidney failure Status: Acute - Plan Plan: On psychiatric evaluation today the patient presents with a significant psychomotor retardation, restricted affect, superficially cooperative, very confused and disoriented. The patient has a significant fluctuation of attention and consciousness, which is most probably secondary to delirium related with his uremic condition. The patient expresses that he does not want to have dialysis, but he is unable to articulate logical/rational reason to refuse this treatment, and he does not seem to connect this decision with the consequences of his actions due to his significant altered mental status. For this reason, the patient does not have decision-making capacity to refuse treatment at this moment. The patient has a psychiatric history of bipolar disorder, he has been in olanzapine in the past, but at this moment I have not recommended standing psychotropics, other than Ativan 1-2 mg IV/IM every 4 hours for agitation and aggressive behavior. Try to avoid psychotropics that increase his QTC, his QTC at this moment is 494. He does not meet criteria for involuntary psychiatric admission. I will follow-up. Justification for Continued Inpatient Stay: No admission is indicated at this moment.
--- NOTE | 2018-08-27 14:17 | P.HPIM ---
History of Present Illness Primary Care Physician: No Primary Care Physician Chief Complaint: Chest pain History of Present Illness: The patient is a 53-year-old male with a past medical history of end-stage renal disease on dialysis who is presenting to the hospital with chest pain. The patient says that he woke up this morning with left-sided chest pain. He rated the pain as a 10 out of 10 in severity. He says the pain comes and goes. He says he has been experiencing this chest pain every once in a while. It is associated with shortness of breath. He does not take any medications at home for it. He denies a history of heart attacks in the past. He also denies any history of stress tests or catheterizations. The patient says that when he does experience the chest pain it seems to last for a very long time. The patient says he was on dialysis for a few months and decided to stop it 2 or 3 months ago because he did not want to go anymore. He is unable to say why he chose to stop dialysis other than that he did not want to do it anymore. He says he has a history of depression and he has felt very depressed. He denies any suicidal thoughts at this time. He does not want to pursue dialysis, however, he was evaluated in the emergency department by psychiatry who determined that the patient does not have capacity to make medical decisions at this time. The patient is currently unable to explain why he needed dialysis and what would happen if he stopped having dialysis. Inpatient Certification: I certify that the inpatient services were ordered in accordance with Medicare regulations governing the order. This includes certification that hospital inpatient services are reasonable and necessary and in the case of services not specified as inpatient-only under 42 CFR 419.22(n), that they are appropriately provided as inpatient services in accordance to with the 2-midnight benchmark under 43 CFR 412.3(e) Estimated Total Length of Stay (Days): 3 Plans for Post Hospital Care: Not yet determined Review of Systems All other systems reviewed negative except as stated in HPI [facility] - History History Provided By: Patient - Medical History Medical History: Medical History (Last Updated 08/27/18 @ 14:05 by Jesús Avila DO) Bipolar disorder Hypertension Kidney failure - Surgical History Surgical History: Surgical History (Last Reviewed 08/27/18 @ 14:05 by Jesús Avila DO) No history of previous surgery - Family History Family History: Family History (Last Updated 08/27/18 @ 14:05 by Jesús Avila DO) Other Bipolar disorder - Social History I have reviewed the patient's Social History: Yes - Tobacco History Tobacco Use In Past 30 Days: Yes Smoking Status: Former smoker (He says he quit weeks ago) - Alcohol History How Often Do You Have a Drink Containing Alcohol: Never - Travel History Recent Travel in the [place] Within the Last 8 Weeks: No Recent Travel Out of the Country Within the Last 8 Weeks: No - Immunization History Tetanus Immunization: >5 Years Medications and Allergies Active Medications: Active Medications Acetaminophen (Tylenol) 650 mg PO Q4H PRN PRN Reason: Temp > 100.4, pain 1-2 Clonidine HCl (Catapres) 0.1 mg PO Q6H PRN PRN Reason: SBP> OR = 180, DBP> OR = 100 Heparin Sodium (Porcine) (Heparin Inj) 5,000 units SQ Q8H [facility] Last Admin: 08/27/18 12:32 Dose: Not Given Ondansetron HCl (Zofran Inj) 4 mg IV.PUSH Q6H PRN PRN Reason: NAUSEA OR VOMITING Senna/Docusate Sodium (Perla-Colace) 1 tab PO BID [facility] Sodium Chloride (Ns Flush) 2 ml IV.FLUSH UNSCH PRN PRN Reason: FLUSH AFTER USING IV ACCESS Allergies Allergy/AdvReac Type Severity Reaction Status Date / Time codeine Allergy Unknown Hives Verified 08/27/18 10:12 Home Medications Medication Instructions Recorded Confirmed Type No Known Home Medications 08/27/18 08/27/18 History Exam Vital signs: Vital Signs 08/27/18 09:15 08/27/18 09:33 08/27/18 10:42 Temperature 98 F Pulse Rate 100 H 48 L Respiratory Rate 18 16 Blood Pressure 173/132 H 195/82 H Pulse Oximetry 96 100 98 08/27/18 13:05 Temperature Pulse Rate Respiratory Rate Blood Pressure Pulse Oximetry 100 Intake & Output 08/26/18 08/27/18 08/27/18 18:59 06:59 18:59 Weight 72.72 kg Narrative: GENERAL: NAD. SKIN: Focused skin assessment warm/dry. HEAD: Atraumatic. Normocephalic. EYES: Pupils equal and round. No scleral icterus. No injection or drainage. ENT: No nasal bleeding or discharge. Mucous membranes pink and moist. NECK: Trachea midline. No JVD. CARDIOVASCULAR: Regular rate and rhythm. No murmur appreciated. Permacath to the right chest. RESPIRATORY: No accessory muscle use. Scattered rhonchi. GASTROINTESTINAL: Abdomen soft, minimally tender, distended abdomen. Hepatic and splenic margins not palpable. MUSCULOSKELETAL: No obvious deformities. No clubbing. No cyanosis. TR-1+ edema. NEUROLOGICAL: Awake and alert. No obvious cranial nerve deficits. Motor grossly within normal limits. Slow speech. PSYCHIATRIC: Flat affect. Results - Labs CBC & Chem 7: 08/27/18 09:22 08/27/18 09:22 Labs: Short CBC 08/27/18 Range/Units 09:22 WBC 6.0 (4.0-11.0) th/mm3 Hgb 10.4 L (13.0-17.0) gm/dL Hct 31.4 L (39.0-51.0) % Plt Count 130 L (150-450) th/mm3 BMP 08/27/18 09:22 Sodium 132 L Potassium 3.6 Chloride 100 Carbon Dioxide 10.3 L BUN 170 H Creatinine 19.95 H* Calcium Less than 5.0 L* Cardiac Enzymes 08/27/18 Range/Units 09:22 Total Creatine Kinase 618 H (39-308) U/L CK-MB (CK-2) 14.2 H (0.5-3.6) ng/mL Troponin I 0.08 H (0.02-0.05) ng/mL Liver Function 08/27/18 Range/Units 09:22 Total Bilirubin 0.3 (0.2-1.0) mg/dL AST 20 (15-37) U/L ALT 16 (12-78) U/L Alkaline Phosphatase 55 (45-117) U/L Albumin 3.2 L (3.4-5.0) g/dL - Imaging Impressions Chest X-Ray 08/27/18 09:19 CONCLUSION: Negative chest. I do not see an etiology for the shortness of breath Caprini VTE Risk Assessment Caprini VTE Risk Assessment: Moderate/High Risk (score >= 2) Caprini Risk Assessment Model: Point Value = 1 Point Value = 2 Point Value = 3 Point Value = 5 Age 41-60 Minor surgery BMI > 25 kg/m2 Swollen legs Varicose veins or History of unexplained or recurrent spontaneous Oral contraceptives or hormone replacement Sepsis (< 1 month) Serious lung disease, including pneumonia (< 1 month) Abnormal pulmonary function Acute myocardial infarction Congestive heart failure (< 1 month) History of inflammatory bowel disease Medical patient at bed rest Age 61-74 Arthroscopic surgery Major open surgery (> 45 min) Laparoscopic surgery (> 45 min) Malignancy Confined to bed (> 72 hours) Immobilizing plaster cast Central venous access Age >= 75 History of VTE Family history of VTE Factor V Leiden Prothrombin [id number] Lupus anticoagulant Anticardiolipin antibodies Elevated serum homocysteine Heparin-induced thrombocytopenia Other congenital or acquired thrombophilia Stroke (< 1 month) Elective arthroplasty Hip, pelvis, or leg fracture Acute spinal cord injury (< 1 month) Prophylaxis Regimen: Total Risk Factor Score Risk Level Prophylaxis Regimen 0-1 Low Early ambulation 2 Moderate Order ONE of the following: *Sequential Compression Device (SCD) *Heparin 5000 units SQ BID 3-4 Higher Order ONE of the following medications: *Heparin 5000 units SQ TID *Enoxaparin/Lovenox 40 mg SQ daily (WT < 150 kg, CrCl > 30 mL/min) *Enoxaparin/Lovenox 30 mg SQ daily (WT < 150 kg, CrCl > 10-29 mL/min) *Enoxaparin/Lovenox 30 mg SQ BID (WT < 150 kg, CrCl > 30 mL/min) AND/OR *Sequential Compression Device (SCD) 5 or more Highest Order ONE of the following medications: *Heparin 5000 units SQ TID (Preferred with Epidurals) *Enoxaparin/Lovenox 40 mg SQ daily (WT < 150 kg, CrCl > 30 mL/min) *Enoxaparin/Lovenox 30 mg SQ daily (WT < 150 kg, CrCl > 10-29 mL/min) *Enoxaparin/Lovenox 30 mg SQ BID (WT < 150 kg, CrCl > 30 mL/min) AND *Sequential Compression Device (SCD) Assessment and Plan - Plan ESRD/Hyponatremia/Hypocalcemia/Lack of capacity The pt stopped dialysis about three months ago. He presented with a creatinine over 19. He does not want to resume dialysis but psychiatry has determined that he does not have the capacity to make that decision. -nephrology consulted for dialysis. -IR to place Permacath. -follow BMP. Chest pain The pt presented to the hospital with left sided chest pain. He says he has had it on and off. Likely s/t above. EKG with NSR, T wave inversions. Trop 0.08. -trend trops and EKGs. -telemetry. -pain control as needed. -consult cardiology if needed. HTN Uncontrolled. Exacerbated by missing dialysis. -dialysis as above. -clonidine as needed. Pancreatitis Lipase elevated over 700. Has mild abdominal tenderness. -currently NPO. -repeat lipase in AM. Depression The pt endorses depression. He has a history of Bipolar disorder and is not on any meds. -follow with psychiatry. PPx: Heparin
[2018-08-27 14:47] LABS: Troponin I 0.07 ng/mL (0.02-0.05)
[2018-08-27 14:59] LABS: CKMB Percent 2.6 % (0.0-4.0); Creatine Kinase MB 14.2 ng/mL (0.5-3.6)
[2018-08-27] MEDS ORDERED: ceFAZolin 2 GM IV IV.SIG SCH (15:00)
[2018-08-27] MEDS ORDERED: Vancomycin Inj 1,000 MG in Sodium Chlor 0.9% Inj 250 ML IV.SIG SCH (15:00)
[2018-08-27] MEDS ORDERED: fentaNYL Citrate Inj 250 MCG/5 ML Ampul ONE (15:46)
[2018-08-27] MEDS ORDERED: ceFAZolin 1 GM Premix Inj 1 GM/50 ML FROZ.PIGGY IV.SIG ONE (15:50)
[2018-08-27] MEDS ORDERED: Heparin 10,000 UNITS/10 ML Vial (for IV use) ONE (16:00)
[2018-08-27] MEDS ORDERED: Lidocaine 1%/Epinephrine 1:100,000 Inj 30 ML Vial ONE (16:01)
[2018-08-27] MEDS ORDERED: Heparin Central Flush 100 UNIT/ML 5 ML Vial IV.FLUSH PRN (17:32)
[2018-08-27] MEDS ORDERED: Heparin 10,000 UNITS/10 ML Vial (for IV use) OTHER PRN ×2 (18:39)
[2018-08-27] MEDS ORDERED: Albumin Human 25% Inj 100 ML IV.SIG PRN (18:39)
[2018-08-27] MEDS ORDERED: Sod Chloride 0.9% Inj 1,000 ML IV.CONT PRN (18:39)
[2018-08-27] MEDS ORDERED: Gelatin 12 MM/7 MM Topical Foam TOPICAL PRN (18:39)
[2018-08-27] MEDS ORDERED: Sod Chloride 0.9% Inj 1,000 ML OTHER PRN ×2 (18:39)
[2018-08-27 20:59] LABS: CKMB Percent 2.3 % (0.0-4.0)
[2018-08-27] MEDS: Senna/Docusate Sodium 8.6/50 MG Tablet PO SCH (22:32)
[2018-08-28 06:37] LABS: Baso % (Auto) 0.4 % (0.0-2.0); Eos % (Auto) 0.4 % (0.0-4.0); Hematocrit 28.2 % (39.0-51.0); Hemoglobin 9.4 gm/dL (13.0-17.0); Lymph # (Auto) 0.5 th/mm3 (1.0-4.8); Lymph % (Auto) 8.8 % (9.0-44.0); Mean Corpuscular HGB Conc 33.4 % (32.0-36.0); Mean Corpuscular Hemoglobin 30.9 pg (27.0-34.0); Mean Corpuscular Volume 92.3 fL (80.0-100.0); Mean Platelet Volume 8.7 fL (7.0-11.0); Mono # (Auto) 0.4 th/mm3 (0.0-0.9); Neut # (Auto) 4.5 th/mm3 (1.8-7.7); Neut % (Auto) 83.4 % (16.0-70.0); Platelet Count 87 th/mm3 (150-450); Red Blood Count 3.05 mil/mm3 (4.50-5.90); Red Cell Distribution Width 13.9 % (11.6-17.2); White Blood Count 5.3 th/mm3 (4.0-11.0)
[2018-08-28 08:10] LABS: Albumin 2.6 g/dL (3.4-5.0); Calcium 5.5 mg/dL (8.5-10.1); Carbon Dioxide 16.9 meq/L (21.0-32.0); Phosphorus 8.9 mg/dL (2.5-4.9); Total Protein 5.2 g/dL (6.4-8.2)
[2018-08-28] MEDS: Senna/Docusate Sodium 8.6/50 MG Tablet PO SCH ×2 (08:14→21:20)
[2018-08-28] MEDS: Heparin - SQ 10,000 UNITS/ML Vial SQ SCH ×3 (08:14→21:19)
[2018-08-28 08:47] LABS: Potassium 2.9 meq/L (3.5-5.1)
[2018-08-28 09:33] LABS: Platelet Morphology Normal (Normal)
[2018-08-28 10:50] LABS: Hepatitis A IgM Antibody Nonreactive (Nonreactive); Hepatitits B Surface Antigen Nonreactive (Nonreactive)
--- NOTE | 2018-08-28 13:22 | P.PNIM ---
Subjective Interval history: The patient was resting comfortably in bed. He said he was starving. He said he was still having 7 out of 10 chest pain on the left side of his chest that was always there and does not have any radiation associated with it. He did endorse some abdominal pain as well. He went to dialysis today. Discussed with nursing. Physical Exam Vital signs: Vital Signs 08/27/18 16:00 08/27/18 16:04 08/27/18 19:47 Temperature 98.8 F 98.7 F Pulse Rate 103 H 106 H 102 H Respiratory Rate 16 18 16 Blood Pressure 162/119 H 176/125 H 138/91 H Pulse Oximetry 98 98 99 08/27/18 20:00 08/28/18 00:00 08/28/18 04:00 Temperature Pulse Rate 102 H 99 H 89 Respiratory Rate 16 18 18 Blood Pressure 138/91 H 143/104 H 148/98 H Pulse Oximetry 99 100 100 08/28/18 08:00 08/28/18 09:00 08/28/18 09:47 Temperature 98.0 F Pulse Rate 77 103 H 99 H Respiratory Rate 16 Blood Pressure 134/95 H Pulse Oximetry 100 08/28/18 11:00 08/28/18 12:00 Temperature 98.3 F Pulse Rate 101 H 99 H Respiratory Rate 15 Blood Pressure 140/99 H Pulse Oximetry 100 Intake & Output 08/27/18 08/28/18 08/28/18 18:59 06:59 18:59 Intake Total 420 / 420 Output Total 1000 / 1000 1000 / 1000 Balance 420 / 420 -1000 / -1000 -1000 / -1000 Weight 72.72 kg 71.7 kg Intake: IV 420 / 420 Calcium Gluconate Inj 2 GM In 120 / 120 D5W Inj 100 ML @ 120 mls/hr IV. SIG ONCE ONE Rx#:[id number] Vancomycin Inj 1,000 MG In NS 250 / 250 Inj 250 ML @ 250 mls/hr IV.SIG [employer] [facility] Rx#:[id number] Ancef 2 GM Premix Inj 2 gm In 50 / 50 50 ml @ 100 mls/hr IV.SIG CASKET TRIMMER [facility] Rx#:[id number] Output: Hemodialysis Amount 1000 / 1000 1000 / 1000 Narrative: GENERAL: NAD. SKIN: Focused skin assessment warm/dry. HEAD: Atraumatic. Normocephalic. EYES: Pupils equal and round. No scleral icterus. No injection or drainage. ENT: No nasal bleeding or discharge. Mucous membranes pink and moist. NECK: Trachea midline. No JVD. CARDIOVASCULAR: Regular rate and rhythm. No murmur appreciated. Permacath to the right chest. RESPIRATORY: No accessory muscle use. Scattered rhonchi. GASTROINTESTINAL: Abdomen soft, minimally tender, distended abdomen. Hepatic and splenic margins not palpable. MUSCULOSKELETAL: No obvious deformities. No clubbing. No cyanosis. TR-1+ edema. NEUROLOGICAL: Awake and alert. No obvious cranial nerve deficits. Motor grossly within normal limits. Slow speech. PSYCHIATRIC: Flat affect. Results - Labs CBC & Chem 7: 08/28/18 05:45 08/28/18 05:45 Laboratory Results - last 24 hr 08/27/18 08/27/18 08/27/18 13:59 18:49 18:58 WBC RBC Hgb Hct MCV MCH MCHC RDW Plt Count MPV Prelim Diff (Auto) Neut % (Auto) Lymph % (Auto) [place] % (Auto) Eos % (Auto) Baso % (Auto) Neut # (Auto) Lymph # (Auto) [place] # (Auto) Eos # (Auto) Baso # (Auto) WBC Differential Diff Scan Differential Comment Platelet Estimate Platelet Morphology Sodium Potassium Chloride Carbon Dioxide Anion Gap BUN Creatinine Estimated GFR POC Glucose 125 H Random Glucose Calcium Prot Corrected Calcium Phosphorus Total Bilirubin AST ALT Alkaline Phosphatase Total Creatine Kinase 552 H 600 H CK-MB (CK-2) 14.2 H 14.0 H CK-MB (CK-2) % 2.6 2.3 Troponin I 0.07 H Total Protein Albumin Hepatitis A IgM Ab Hep Bs Antigen Hep B Core IgM Ab Hep C IgG Ab 08/28/18 08/28/18 08/28/18 05:45 05:45 09:00 WBC 5.3 RBC 3.05 L Hgb 9.4 L Hct 28.2 L MCV 92.3 MCH 30.9 MCHC 33.4 RDW 13.9 Plt Count 87 L D MPV 8.7 Prelim Diff (Auto) Slide review pending Neut % (Auto) 83.4 H Lymph % (Auto) 8.8 L [place] % (Auto) 7.0 Eos % (Auto) 0.4 Baso % (Auto) 0.4 Neut # (Auto) 4.5 Lymph # (Auto) 0.5 L [place] # (Auto) 0.4 Eos # (Auto) 0.0 Baso # (Auto) 0.0 WBC Differential . Diff Scan Auto diff confirmed Differential Comment . Platelet Estimate Low L Platelet Morphology Normal Sodium 137 Potassium 2.9 L* Chloride 102 Carbon Dioxide 16.9 L Anion Gap 18 H BUN 134 H Creatinine 16.19 H* D Estimated GFR 3 L POC Glucose Random Glucose 103 Calcium 5.5 L* Prot Corrected Calcium 6.3 L* D Phosphorus 8.9 H Total Bilirubin 0.3 AST 12 L ALT 11 L Alkaline Phosphatase 46 Total Creatine Kinase CK-MB (CK-2) CK-MB (CK-2) % Troponin I Total Protein 5.2 L D Albumin 2.6 L D Hepatitis A IgM Ab Nonreactive Hep Bs Antigen Nonreactive Hep B Core IgM Ab Nonreactive Hep C IgG Ab Nonreactive Assessment and Plan - Plan ESRD/Hyponatremia/Hypocalcemia/Lack of capacity The pt stopped dialysis about three months ago. He presented with a creatinine over 19. He does not want to resume dialysis but psychiatry has determined that he does not have the capacity to make that decision. Nephrology consult appreciated. IR placed Permacath. -continue dialysis per nephrology. -follow BMP. Chest pain The pt presented to the hospital with left sided chest pain. He says he has had it on and off. Likely s/t above. EKG with NSR, T wave inversions. Trops peaked at 0.08. -repeat EKG pending. -telemetry. -pain control and oxygen as needed. -consult cardiology if needed. -consider stress test. -start a PPI. HTN Improved. -dialysis as above. -clonidine as needed. Pancreatitis Lipase elevated over 700. Has mild abdominal tenderness. -ADAT. -repeat lipase in AM. Depression The pt endorses depression. He has a history of Bipolar disorder and is not on any meds. -follow with psychiatry. PPx: Heparin
--- NOTE | 2018-08-28 13:24 | P.PNNP ---
Subjective Interval history: Patient was admitted to ED 08/27 where he stated he did not want to continue dialysis. Patient was evaluated in the emergency department by psychiatry who determined that the patient does not have capacity to make medical decisions at this time. Patient had a perm cath in place that was not patent, a new one was put in . Patient was dialyzed yesterday, 1 L of fluid removed. Patient was dialyzed again today, 1 L of fluid removed. <Caty Mcdaniels - Last Filed: 08/28/18 13:26> Physical Exam Vital signs: Vital Signs 08/27/18 16:00 08/27/18 16:04 08/27/18 19:47 Temperature 98.8 F 98.7 F Pulse Rate 103 H 106 H 102 H Respiratory Rate 16 18 16 Blood Pressure 162/119 H 176/125 H 138/91 H Pulse Oximetry 98 98 99 08/27/18 20:00 08/28/18 00:00 08/28/18 04:00 Temperature Pulse Rate 102 H 99 H 89 Respiratory Rate 16 18 18 Blood Pressure 138/91 H 143/104 H 148/98 H Pulse Oximetry 99 100 100 08/28/18 08:00 08/28/18 09:00 08/28/18 09:47 Temperature 98.0 F Pulse Rate 77 103 H 99 H Respiratory Rate 16 Blood Pressure 134/95 H Pulse Oximetry 100 08/28/18 11:00 08/28/18 12:00 Temperature 98.3 F Pulse Rate 101 H 99 H Respiratory Rate 15 Blood Pressure 140/99 H Pulse Oximetry 100 Intake & Output 08/27/18 08/28/18 08/28/18 18:59 06:59 18:59 Intake Total 420 / 420 Output Total 1000 / 1000 1000 / 1000 Balance 420 / 420 -1000 / -1000 -1000 / -1000 Weight 72.72 kg 71.7 kg Intake: IV 420 / 420 Calcium Gluconate Inj 2 GM In 120 / 120 D5W Inj 100 ML @ 120 mls/hr IV. 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 Absent: JVD, tracheal deviation - Routine Respiratory Exam Absent: accessory muscle use, respiratory distress - Routine Cardiovascular Exam Present: RRR - Routine Abdominal Exam Present: distended. Absent: tenderness - Routine Extremities Exam Present: vascular access. Absent: edema <Caty Mcdaniels - Last Filed: 08/28/18 13:26> Vital signs: Vital Signs 08/27/18 20:00 08/28/18 00:00 08/28/18 04:00 Temperature Pulse Rate 102 H 99 H 89 Respiratory Rate 16 18 18 Blood Pressure 138/91 H 143/104 H 148/98 H Pulse Oximetry 99 100 100 08/28/18 08:00 08/28/18 09:00 08/28/18 09:47 Temperature 98.0 F Pulse Rate 77 103 H 99 H Respiratory Rate 16 Blood Pressure 134/95 H Pulse Oximetry 100 08/28/18 11:00 08/28/18 12:00 08/28/18 13:00 Temperature 98.3 F Pulse Rate 101 H 99 H 96 H Respiratory Rate 15 Blood Pressure 140/99 H Pulse Oximetry 100 08/28/18 14:00 08/28/18 15:00 08/28/18 15:44 Temperature 98.4 F Pulse Rate 115 H 99 H 102 H Respiratory Rate 16 Blood Pressure 148/98 H Pulse Oximetry 100 08/28/18 16:00 08/28/18 17:00 08/28/18 17:50 Temperature Pulse Rate 103 H 101 H Respiratory Rate Blood Pressure Pulse Oximetry 99 08/28/18 18:00 Temperature Pulse Rate 113 H Respiratory Rate Blood Pressure Pulse Oximetry Intake & Output 08/28/18 08/28/18 08/29/18 06:59 18:59 06:59 Intake Total 480 / 480 Output Total 1000 / 1000 1000 / 1000 Balance -1000 / -1000 -520 / -520 Weight 71.7 kg Intake: Oral 480 / 480 Output: Urine 0 / 0 Hemodialysis Amount 1000 / 1000 1000 / 1000 Other: # Bowel Movements 0 <Julio Cesar Garduno - Last Filed: 08/28/18 20:00> Assessment and Plan - Assessment (1) End stage renal disease Code(s): N18.6 - End stage renal disease Status: Acute Plan: Patient has polycystic kidney disease which could have contributed to his End- Stage Renal Disease. Patient previously was getting dialysis but stopped. Patient was refusing dialysis yeterday. Patient was evaluated in the emergency department by psychiatry who determined that the patient does not have capacity to make medical decisions at this time. Patient was dialyzed yesterday, 1 L of fluid removed. Patient was dialyzed again today, 1 L of fluid removed. Monitor fluid and electrolytes. Avoid Gadolinium. (2) Hypertension Code(s): I10 - Essential (primary) hypertension Status: Acute Plan: Monitor BP. (3) Delirium due to another medical condition Code(s): F05 - Delirium due to known physiological condition Status: Acute Plan: Was evaluated in the emergency department by psychiatry who determined that the patient does not have capacity to make medical decisions at this time. Will continue to follow with psychiatry. (4) Anemia Code(s): D64.9 - Anemia, unspecified Status: Acute Plan: On Epogen with dialysis. Hemoglobin is 9.4. (5) Metabolic bone disease Code(s): E88.9 - Metabolic disorder, unspecified; M90.80 - Osteopathy in diseases classified elsewhere, unspecified site Status: Acute Plan: Monitor phosphorus intermittently. Will order phosphorus lab. <Caty Mcdaniels - Last Filed: 08/28/18 13:26> - Assessment (1) End stage renal disease Code(s): N18.6 - End stage renal disease Status: Acute (2) Hypertension Code(s): I10 - Essential (primary) hypertension Status: Acute (3) Delirium due to another medical condition Code(s): F05 - Delirium due to known physiological condition Status: Acute (4) Anemia Code(s): D64.9 - Anemia, unspecified Status: Acute (5) Metabolic bone disease Code(s): E88.9 - Metabolic disorder, unspecified; M90.80 - Osteopathy in diseases classified elsewhere, unspecified site Status: Acute - Attending Attestation patient was seen and examined. Agree with above assessment and plan. Patient keeps saying he does not want to continue dialysis. According to psychiatry, he does not have the capacity to take decision. It should be noted that previously he had stopped coming to dialysis treatments. <Julio Cesar Garduno - Last Filed: 08/28/18 20:00>
--- NOTE | 2018-08-28 14:41 | IR ---
EXAM DATE: 08/27/2018 5:55 PM EST AGE/SEX: 53 years / Male INDICATIONS: Patient presents with end-stage renal disease in need of dialysis catheter placement. CLINICAL DATA: This is the patient's initial encounter. Patient reports that signs and symptoms have been present for 1 week and indicates a pain score of 3/10. MEDICAL/SURGICAL HISTORY: . Bipolar disorder, Hypertension, Kidney failure. . No history of pr evious surgery. COMPARISON: No prior exams available for comparison. FLUORO TIME (min): 2.4 IMAGE SERIES: 3 ACCESS SITE: Right subclavian vein SEDATION TIME (min): 45 MEDICATION(S): 1.5 mg midazolam (Versed) IV 75 mg fentanyl (Sublimaze) IV DEVICE(S): 15 Turkish double lumen 19cm Davis II Plus Catheter . . PROCEDURE: 1. Ultrasound-guided venipuncture. 2. PermaCath placement. 3. Conscious sedation with continuous EKG and oximetry monitoring. The risks, benefits and alternatives to the procedure were explained and verbal and written consent w as obtained. The site was prepped in sterile fashion. Full sterile technique was used, including ca p, mask, sterile gloves and gown and a large sterile sheet. Hand hygiene and 2% chlorhexidine and/or betadine/alcohol prep was utilized per protocol for cutaneous antisepsis. Sterile gel and sterile p robe cover were utilized for ultrasound guidance. The skin and subcutaneous tissues were infiltrated with local anesthetic solution. With ultrasound and fluoroscopic guidance a dermatotomy was created over the prescribed vein. A micr opuncture set was used to access the targeted vein and serial dilatation was performed to accept the prescribed length catheter. A subcutaneous tunnel was created in a retrograde fashion the catheter w as pulled through the tunnel. The catheter was flushed and assembled and locked with heparin. The c atheter was sutured in place. Conscious sedation was performed with the prescribed dosages and duration as above in the presence of an independent trained radiology nurse to assist in the monitoring of the patient. EKG and oximetry remained stable throughout the procedure. The patient tolerated the procedure well and there were n o complications. The patient was sent to post anesthesia recovery in stable condition. CONCLUSION: Uncomplicated PermaCath placement as above. Electronically signed by: Tyrone Galvan MD 08/28/2018 2:39 PM EST
[2018-08-28 19:35] LABS: Chol/HDL Ratio 3.09 Ratio; HDL Cholesterol 29.4 mg/dL (40.0-60.0)
[2018-08-28 21:39] LABS: Hemoglobin A1c 5.3 % (4.3-6.0)
[2018-08-28] MEDS ORDERED: Melatonin 5 MG Tablet PO PRN (21:52)
--- NOTE | 2018-08-28 22:26 | MB ---
cc: Hong Bains MD DATE: 08/28/2018 HISTORY OF PRESENT ILLNESS: Hong is a very pleasant 53-year-old gentleman who has polycystic kidney disease, end-stage renal failure, who has missed several dialyses. He has been seen by psychiatry and deemed incompetent to make his own decisions. He appears to be comfortable. He is eating dinner. He notes intermittent chest pain that is mild. Otherwise, denies any fevers, chills, cough, GI or bleeding, PND, orthopnea, syncope, or dizziness. SOCIAL HISTORY: Former smoker. Denies alcohol use. ALLERGIES: CODEINE. MEDICATIONS: In the hospital: 1. Coreg 3.125 b.i.d. 2. Cefazolin. 3. Epogen. 4. Gentamicin 5. Heparin 5000 subcutaneous every 8 hours. 6. Pantoprazole 40 mg daily. PHYSICAL EXAMINATION: VITAL SIGNS: Pulse 103, blood pressure 146/98, respiratory rate 18, temperature 98.1. GENERAL: He is alert, oriented x 3, in no acute distress. NECK: Supple. No JVD. No bruit. CARDIOVASCULAR: S1, S2. No murmurs, rubs or gallops. LUNGS: Clear to auscultation bilaterally. ABDOMEN: Soft, nontender, nondistended, positive bowel sounds. EXTREMITIES: No lower extremity edema. DIAGNOSTIC DATA: Chest x-ray negative. I do not see an etiology for the shortness of breath. Clinical EKG shows 2-3 mm T-wave inversions which is symmetric, V2, V3, V4, V5, which is a change from EKG on 07/31/2016 LABORATORY DATA: White count is 5.3, hemoglobin 9.4, hematocrit 28.2, platelet count is 87. Sodium 137, potassium 2.9, chloride 102, BUN is 134, creatinine is 16.19. Carbon dioxide is 16.9. LDL is 41. INR 1.2. PT is 12.3, troponin 0.07, initially was 0.08. Lipase 747. DIAGNOSES: 1. [id number] myocardial infarction. 2. Hyponatremia with initial sodium 132. 3. Acute renal failure. 4. Polycystic kidney disease. 5. Chronic renal insufficiency. 6. Metabolic acidosis. 7. Hypokalemia. 8. Anemia. 9. Thrombocytopenia. 10. Coagulopathy. 11. Delirium. 12. Prolonged corrected QT interval. DISCUSSION: At this point in time, the patient is not consentable, as deemed by psychiatry. He has multiple comorbidities including coagulopathy, thrombocytopenia, anemia with unstable hemoglobin, acute renal failure with markedly elevated creatinine and BUN. His symptoms are mild. His troponin is minimally elevated. We will try to treat him medically. I will add nitro paste and increase his Coreg to 12.5 b.i.d. He is not a good candidate for antiplatelets, given his unstable hemoglobin and thrombocytopenia and coagulopathy, also, I am concerned about potential for noncompliance with him. We will need to follow trends in symptoms, hemoglobin, troponins and vital signs. MD VASQUEZ Burciaga/minal , 09:42 PM , 09:50 PM
[2018-08-29] MEDS: Heparin - SQ 10,000 UNITS/ML Vial SQ SCH ×3 (04:08→20:47)
[2018-08-29 06:09] LABS: Hematocrit 25.3 % (39.0-51.0); Hemoglobin 8.8 gm/dL (13.0-17.0); Mean Corpuscular HGB Conc 34.7 % (32.0-36.0); Mean Corpuscular Hemoglobin 31.7 pg (27.0-34.0); Mean Corpuscular Volume 91.4 fL (80.0-100.0); Mean Platelet Volume 9.2 fL (7.0-11.0); Platelet Count 87 th/mm3 (150-450); Red Blood Count 2.76 mil/mm3 (4.50-5.90); Red Cell Distribution Width 13.8 % (11.6-17.2); White Blood Count 5.4 th/mm3 (4.0-11.0)
[2018-08-29 07:10] LABS: Calcium 5.9 mg/dL (8.5-10.1); Carbon Dioxide 22.8 meq/L (21.0-32.0); Magnesium 1.4 mg/dL (1.5-2.5); Phosphorus 5.7 mg/dL (2.5-4.9)
[2018-08-29 07:32] LABS: Total Protein 5.3 g/dL (6.4-8.2)
[2018-08-29] MEDS: Carvedilol 6.25 MG Tablet PO SCH ×2 (08:51→20:46)
[2018-08-29] MEDS: Senna/Docusate Sodium 8.6/50 MG Tablet PO SCH ×2 (08:51→20:46)
[2018-08-29] MEDS ORDERED: Potassium Chloride Inj 30 MEQ in Sodium Chlor 0.9% Inj 100 ML IV.CONT ONE (09:01)
--- NOTE | 2018-08-29 10:13 | P.PNIM ---
Subjective Interval history: The patient says that his chest pain is better. He says that he does not want to do dialysis anymore. He says he realizes he will probably if he stops dialysis. He says he has lived long enough. He says he has been on antidepressants before. Physical Exam Vital signs: Vital Signs 08/28/18 11:00 08/28/18 12:00 08/28/18 13:00 Temperature 98.3 F Pulse Rate 101 H 99 H 96 H Respiratory Rate 15 Blood Pressure 140/99 H Pulse Oximetry 100 08/28/18 14:00 08/28/18 15:00 08/28/18 15:44 Temperature 98.4 F Pulse Rate 115 H 99 H 102 H Respiratory Rate 16 Blood Pressure 148/98 H Pulse Oximetry 100 08/28/18 16:00 08/28/18 17:00 08/28/18 17:50 Temperature Pulse Rate 103 H 101 H Respiratory Rate Blood Pressure Pulse Oximetry 99 08/28/18 18:00 08/28/18 19:00 08/28/18 20:00 Temperature 98.1 F Pulse Rate 113 H 114 H 107 H Respiratory Rate 18 Blood Pressure 146/98 H Pulse Oximetry 96 08/28/18 21:00 08/28/18 22:00 08/28/18 23:00 Temperature Pulse Rate 97 H 97 H 85 Respiratory Rate Blood Pressure Pulse Oximetry 08/29/18 00:00 08/29/18 01:00 08/29/18 02:00 Temperature 98.3 F Pulse Rate 85 86 89 Respiratory Rate 18 Blood Pressure 144/90 H Pulse Oximetry 98 08/29/18 03:00 08/29/18 04:00 08/29/18 05:00 Temperature 98.8 F Pulse Rate 84 86 79 Respiratory Rate 17 Blood Pressure 143/97 H Pulse Oximetry 100 08/29/18 06:00 08/29/18 07:00 08/29/18 07:54 Temperature 97.5 F L Pulse Rate 81 94 H 84 Respiratory Rate 18 Blood Pressure 161/105 H Pulse Oximetry 100 08/29/18 08:00 08/29/18 08:45 Temperature Pulse Rate 82 90 Respiratory Rate Blood Pressure 136/98 H Pulse Oximetry 100 100 Intake & Output 08/28/18 08/29/18 08/29/18 18:59 06:59 18:59 Intake Total 480 / 480 120 / 120 Output Total 1000 / 1000 Balance -520 / -520 120 / 120 Intake: Oral 480 / 480 120 / 120 Output: Urine 0 / 0 Hemodialysis Amount 1000 / 1000 Other: # Voids 1 Date of Last Bowel Movement 08/28/18 08/28/18 # Bowel Movements 0 Narrative: GENERAL: NAD. SKIN: Focused skin assessment warm/dry. HEAD: Atraumatic. Normocephalic. EYES: Pupils equal and round. No scleral icterus. No injection or drainage. ENT: No nasal bleeding or discharge. Mucous membranes pink and moist. NECK: Trachea midline. No JVD. CARDIOVASCULAR: Regular rate and rhythm. No murmur appreciated. Permacath to the right chest. RESPIRATORY: No accessory muscle use. Scattered rhonchi. GASTROINTESTINAL: Abdomen soft, minimally tender, distended abdomen. Hepatic and splenic margins not palpable. MUSCULOSKELETAL: No obvious deformities. No clubbing. No cyanosis. TR-1+ edema. NEUROLOGICAL: Awake and alert. No obvious cranial nerve deficits. Motor grossly within normal limits. Slow speech. PSYCHIATRIC: Flat affect. Results - Labs CBC & Chem 7: 08/29/18 05:38 08/29/18 05:38 Laboratory Results - last 24 hr 08/28/18 08/28/18 08/28/18 05:45 05:45 09:00 WBC RBC Hgb Hct MCV MCH MCHC RDW Plt Count MPV Sodium Potassium Chloride Carbon Dioxide Anion Gap BUN Creatinine Estimated GFR Random Glucose Hemoglobin A1c 5.3 Calcium Prot Corrected Calcium Phosphorus Magnesium Total Protein Triglycerides 103 Cholesterol 91 L LDL Cholesterol, Calc 41 HDL Cholesterol 29.4 L Cholesterol/HDL Ratio 3.09 Lipase Hepatitis A IgM Ab Nonreactive Hep Bs Antigen Nonreactive Hep B Core IgM Ab Nonreactive Hep C IgG Ab Nonreactive 08/29/18 08/29/18 05:38 05:38 WBC 5.4 RBC 2.76 L Hgb 8.8 L Hct 25.3 L MCV 91.4 MCH 31.7 MCHC 34.7 RDW 13.8 Plt Count 87 L MPV 9.2 Sodium 136 Potassium 3.0 L Chloride 99 Carbon Dioxide 22.8 Anion Gap 14 BUN 92 H Creatinine 12.70 H* D Estimated GFR 4 L Random Glucose 147 H Hemoglobin A1c Calcium 5.9 L* Prot Corrected Calcium 6.7 L* Phosphorus 5.7 H D Magnesium 1.4 L Total Protein 5.3 L Triglycerides Cholesterol LDL Cholesterol, Calc HDL Cholesterol Cholesterol/HDL Ratio Lipase 433 H Hepatitis A IgM Ab Hep Bs Antigen Hep B Core IgM Ab Hep C IgG Ab - Imaging Impressions Central Venous Line 08/27/18 00:00 CONCLUSION: Uncomplicated PermaCath placement as above. Assessment and Plan - Plan ESRD/Hyponatremia/Hypocalcemia/Lack of capacity The pt stopped dialysis about three months ago. He presented with a creatinine over 19. He does not want to resume dialysis but psychiatry has determined that he does not have the capacity to make that decision. Nephrology consult appreciated. IR placed Permacath. -continue dialysis per nephrology. -follow BMP. Chest pain The pt presented to the hospital with left sided chest pain. He says he has had it on and off. Likely s/t above. EKG with NSR, T wave inversions. Trops peaked at 0.08. Cardiology consult appreciated. -telemetry. -pain control and oxygen as needed. -follow up with cardiology. Beta linda increased and Nitropaste added. -continue PPI. HTN Improved. -dialysis as above. -clonidine as needed. Pancreatitis Lipase elevated over 700. Has mild abdominal tenderness. Improved. -ADAT. Depression The pt endorses depression. He has a history of Bipolar disorder and is not on any meds. -follow with psychiatry. -QTc prolonged, avoid antipsychotics. PPx: Heparin
--- NOTE | 2018-08-29 11:06 | P.PNNP ---
Subjective Interval history: Patient was seen, no distress. Patient stated he didn't want to do dialysis anymore. He stated he did not like being "poked by needles". Patient stated he was getting dialysis at [facility]. When asked if he would continue dialysis again when he's discharged he said no. Patient's K was 3.0, was given IV K. Patient's Phosphorus was 5.7, was started on PhosLo. <Caty Mcdaniels - Last Filed: 08/29/18 11:09> Physical Exam Vital signs: Vital Signs 08/28/18 12:00 08/28/18 13:00 08/28/18 14:00 Temperature 98.3 F Pulse Rate 99 H 96 H 115 H Respiratory Rate 15 Blood Pressure 140/99 H Pulse Oximetry 100 08/28/18 15:00 08/28/18 15:44 08/28/18 16:00 Temperature 98.4 F Pulse Rate 99 H 102 H 103 H Respiratory Rate 16 Blood Pressure 148/98 H Pulse Oximetry 100 08/28/18 17:00 08/28/18 17:50 08/28/18 18:00 Temperature Pulse Rate 101 H 113 H Respiratory Rate Blood Pressure Pulse Oximetry 99 08/28/18 19:00 08/28/18 20:00 08/28/18 21:00 Temperature 98.1 F Pulse Rate 114 H 107 H 97 H Respiratory Rate 18 Blood Pressure 146/98 H Pulse Oximetry 96 08/28/18 22:00 08/28/18 23:00 08/29/18 00:00 Temperature 98.3 F Pulse Rate 97 H 85 85 Respiratory Rate 18 Blood Pressure 144/90 H Pulse Oximetry 98 08/29/18 01:00 08/29/18 02:00 08/29/18 03:00 Temperature Pulse Rate 86 89 84 Respiratory Rate Blood Pressure Pulse Oximetry 08/29/18 04:00 08/29/18 05:00 08/29/18 06:00 Temperature 98.8 F Pulse Rate 86 79 81 Respiratory Rate 17 Blood Pressure 143/97 H Pulse Oximetry 100 08/29/18 07:00 08/29/18 07:54 08/29/18 08:00 Temperature 97.5 F L Pulse Rate 94 H 84 82 Respiratory Rate 18 Blood Pressure 161/105 H Pulse Oximetry 100 100 08/29/18 08:45 Temperature Pulse Rate 90 Respiratory Rate Blood Pressure 136/98 H Pulse Oximetry 100 Intake & Output 08/28/18 08/29/18 08/29/18 18:59 06:59 18:59 Intake Total 480 / 480 120 / 120 Output Total 1000 / 1000 Balance -520 / -520 120 / 120 Intake: Oral 480 / 480 120 / 120 Output: Urine 0 / 0 Hemodialysis Amount 1000 / 1000 Other: # Voids 1 Date of Last Bowel Movement 08/28/18 08/28/18 # Bowel Movements 0 - Constitutional no acute distress - Routine HEENT Exam Head: Present: normocephalic Eye: Present: EOMI, PERRL ENT: Present: mucous membranes moist - Routine Neck Exam Present: trachea midline. Absent: tracheal deviation - Routine Respiratory Exam Absent: accessory muscle use, respiratory distress - Routine Cardiovascular Exam Present: RRR - Routine Abdominal Exam Present: distended. Absent: soft, tenderness - Routine Extremities Exam Present: vascular access Comments: PermCath in place. - Routine Neurological Exam Present: alert - Routine Psychiatric Exam Present: cooperative <Caty Mcdaniels - Last Filed: 08/29/18 11:09> Vital signs: Vital Signs 08/28/18 15:00 08/28/18 15:44 08/28/18 16:00 Temperature 98.4 F Pulse Rate 99 H 102 H 103 H Respiratory Rate 16 Blood Pressure 148/98 H Pulse Oximetry 100 08/28/18 17:00 08/28/18 17:50 08/28/18 18:00 Temperature Pulse Rate 101 H 113 H Respiratory Rate Blood Pressure Pulse Oximetry 99 08/28/18 19:00 08/28/18 20:00 08/28/18 21:00 Temperature 98.1 F Pulse Rate 114 H 107 H 97 H Respiratory Rate 18 Blood Pressure 146/98 H Pulse Oximetry 96 08/28/18 22:00 08/28/18 23:00 08/29/18 00:00 Temperature 98.3 F Pulse Rate 97 H 85 85 Respiratory Rate 18 Blood Pressure 144/90 H Pulse Oximetry 98 08/29/18 01:00 08/29/18 02:00 08/29/18 03:00 Temperature Pulse Rate 86 89 84 Respiratory Rate Blood Pressure Pulse Oximetry 08/29/18 04:00 08/29/18 05:00 08/29/18 06:00 Temperature 98.8 F Pulse Rate 86 79 81 Respiratory Rate 17 Blood Pressure 143/97 H Pulse Oximetry 100 08/29/18 07:00 08/29/18 07:54 08/29/18 08:00 Temperature 97.5 F L Pulse Rate 94 H 84 82 Respiratory Rate 18 Blood Pressure 161/105 H Pulse Oximetry 100 100 08/29/18 08:45 08/29/18 09:00 08/29/18 10:00 Temperature Pulse Rate 90 100 H 86 Respiratory Rate Blood Pressure 136/98 H Pulse Oximetry 100 08/29/18 12:00 08/29/18 13:00 Temperature 98.0 F Pulse Rate 84 86 Respiratory Rate 18 Blood Pressure 142/98 H Pulse Oximetry 99 Intake & Output 08/28/18 08/29/18 08/29/18 18:59 06:59 18:59 Intake Total 480 / 480 120 / 120 115 / 115 Output Total 1000 / 1000 Balance -520 / -520 120 / 120 115 / 115 Intake: IV 115 / 115 KCl Inj 30 MEQ In NS Inj 100 ML 115 / 115 @ 38.333 mls/hr IV.CONT ONCE ONE Rx#:[id number] Oral 480 / 480 120 / 120 Output: Urine 0 / 0 Hemodialysis Amount 1000 / 1000 Other: # Voids 1 Date of Last Bowel Movement 08/28/18 08/28/18 # Bowel Movements 0 <Julio Cesar Garduno - Last Filed: 08/29/18 14:10> Assessment and Plan - Assessment (1) End stage renal disease Code(s): N18.6 - End stage renal disease Status: Acute Plan: Patient has polycystic kidney disease which could have contributed to his End- Stage Renal Disease. Patient previously was getting dialysis but stopped. Patient was refusing dialysis on admission to the hospital. Patient was evaluated in the emergency department by psychiatry who determined that the patient does not have capacity to make medical decisions at this time. Patient was dialyzed yesterday, 1 L of fluid removed. Monitor fluid and electrolytes. Avoid Gadolinium. Patient's K was 3.0, was given IV K. (2) Hypertension Code(s): I10 - Essential (primary) hypertension Status: Acute Plan: Monitor BP. (3) Delirium due to another medical condition Code(s): F05 - Delirium due to known physiological condition Status: Acute Plan: Was evaluated in the emergency department by psychiatry who determined that the patient does not have capacity to make medical decisions at this time. Will continue to follow with psychiatry. (4) Anemia Code(s): D64.9 - Anemia, unspecified Status: Acute Plan: On Epogen with dialysis. Hemoglobin is 8.8. (5) Metabolic bone disease Code(s): E88.9 - Metabolic disorder, unspecified; M90.80 - Osteopathy in diseases classified elsewhere, unspecified site Status: Acute Plan: Monitor phosphorus intermittently. Patient's Phosphorus was 5.7, was started on PhosLo. <Caty Mcdaniels - Last Filed: 08/29/18 11:09> - Assessment (1) End stage renal disease Code(s): N18.6 - End stage renal disease Status: Acute (2) Hypertension Code(s): I10 - Essential (primary) hypertension Status: Acute (3) Delirium due to another medical condition Code(s): F05 - Delirium due to known physiological condition Status: Acute (4) Anemia Code(s): D64.9 - Anemia, unspecified Status: Acute (5) Metabolic bone disease Code(s): E88.9 - Metabolic disorder, unspecified; M90.80 - Osteopathy in diseases classified elsewhere, unspecified site Status: Acute - Attending Attestation patient seen and examined. He keeps saying that he does not want to continue with dialysis. Please consider reconsulting psychiatry to see if he is now competent to take decisions. Agree with above assessment and plan. Started PhosLo <Julio Cesar Garduno - Last Filed: 08/29/18 14:10>
[2018-08-29] MEDS: Calcium Acetate 667 MG Capsule PO SCH ×2 (12:52→17:45)
--- NOTE | 2018-08-29 16:04 | ECG ---
Date Performed: 08/28/2018 Time Performed: 16:46:42 PTAGE: 53 years EKG: Sinus tachycardia. Lead(s) unsuitable for analysis: V4 Possible LVH with secondary repolari zation abnormality Extensive ST-T changes are probably due to ventricular hypertrophy Extensive anter olateral ST-T wave changes were previously noted. They may be due to Left ventricular hypertrophy but myocardial ischemia and electrolyte imbalance should also be considered and excluded. Abnormal ECG PREVIOUS TRACING :08/27/2018 @09.17.22 Compared to previous tracing, no significant serial pulido ge. DOCTOR: Marilee Kraus Interpretating Date/Time 08/29/2018 16:03:30
[2018-08-29] MEDS ORDERED: Aluminum/Magnesium/Simethacone Susp 30 ML UDC PO PRN (17:58)
[2018-08-30] MEDS: Heparin - SQ 10,000 UNITS/ML Vial SQ SCH ×3 (03:06→20:41)
--- NOTE | 2018-08-30 09:11 | P.PNNP ---
Subjective Interval history: Seen during hemodialysis. Labs pending for today. Denies any shortness of breath, chest pain, nausea, or vomiting. <Luzmaria Jin - Last Filed: 08/30/18 09:06> Physical Exam Vital signs: Vital Signs 08/29/18 10:00 08/29/18 11:00 08/29/18 12:00 Temperature 98.0 F Pulse Rate 86 86 84 Respiratory Rate 18 Blood Pressure 142/98 H Pulse Oximetry 99 08/29/18 13:00 08/29/18 14:00 08/29/18 15:00 Temperature Pulse Rate 86 84 89 Respiratory Rate Blood Pressure Pulse Oximetry 08/29/18 15:39 08/29/18 16:00 08/29/18 17:00 Temperature 97.7 F Pulse Rate 76 84 86 Respiratory Rate 18 Blood Pressure 157/104 H 137/82 Pulse Oximetry 100 08/29/18 18:00 08/29/18 19:00 08/29/18 20:00 Temperature 98.9 F Pulse Rate 95 H 87 86 Respiratory Rate 16 Blood Pressure 143/99 H Pulse Oximetry 99 08/29/18 21:00 08/29/18 22:00 08/29/18 23:00 Temperature Pulse Rate 78 84 80 Respiratory Rate Blood Pressure Pulse Oximetry 08/29/18 23:57 08/30/18 00:00 08/30/18 01:00 Temperature Pulse Rate 78 72 82 Respiratory Rate 16 Blood Pressure 126/93 H Pulse Oximetry 99 08/30/18 02:00 08/30/18 03:00 08/30/18 04:00 Temperature Pulse Rate 78 78 72 Respiratory Rate 16 Blood Pressure 135/99 H Pulse Oximetry 100 08/30/18 05:00 08/30/18 06:00 08/30/18 07:49 Temperature 97.4 F L Pulse Rate 70 66 74 Respiratory Rate 16 Blood Pressure 159/94 H Pulse Oximetry 99 08/30/18 08:00 Temperature Pulse Rate Respiratory Rate Blood Pressure Pulse Oximetry 90 L Intake & Output 08/29/18 08/30/18 08/30/18 18:59 06:59 18:59 Intake Total 1475 / 1475 240 / 240 Output Total 50 / 50 Balance 1475 / 1475 190 / 190 Weight 71.1 kg Intake: IV 115 / 115 KCl Inj 30 MEQ In NS Inj 100 ML 115 / 115 @ 38.333 mls/hr IV.CONT ONCE ONE Rx#:[id number] Oral 1360 / 1360 240 / 240 Output: Urine 50 / 50 Other: # Voids 2 Date of Last Bowel Movement 08/29/18 08/29/18 08/29/18 # Bowel Movements 1 0 Narrative: GENERAL: NAD. NECK: Trachea midline. No JVD. CARDIOVASCULAR: Regular rate and rhythm. No murmur appreciated. Permacath to the right chest. RESPIRATORY: No accessory muscle use. Lung sounds diminished to auscultation. GASTROINTESTINAL: Abdomen soft, minimally tender, distended abdomen. MUSCULOSKELETAL: No obvious deformities. No clubbing. No cyanosis. Mild bilateral lower extremity edema. NEUROLOGICAL: Awake and alert. Slow speech. PSYCHIATRIC: Flat affect. <Luzmaria Jin - Last Filed: 08/30/18 09:06> Vital signs: Vital Signs 08/29/18 12:00 08/29/18 13:00 08/29/18 14:00 Temperature 98.0 F Pulse Rate 84 86 84 Respiratory Rate 18 Blood Pressure 142/98 H Pulse Oximetry 99 08/29/18 15:00 08/29/18 15:39 08/29/18 16:00 Temperature 97.7 F Pulse Rate 89 76 84 Respiratory Rate 18 Blood Pressure 157/104 H 137/82 Pulse Oximetry 100 08/29/18 17:00 08/29/18 18:00 08/29/18 19:00 Temperature Pulse Rate 86 95 H 87 Respiratory Rate Blood Pressure Pulse Oximetry 08/29/18 20:00 08/29/18 21:00 08/29/18 22:00 Temperature 98.9 F Pulse Rate 86 78 84 Respiratory Rate 16 Blood Pressure 143/99 H Pulse Oximetry 99 08/29/18 23:00 08/29/18 23:57 08/30/18 00:00 Temperature Pulse Rate 80 78 72 Respiratory Rate 16 Blood Pressure 126/93 H Pulse Oximetry 99 08/30/18 01:00 08/30/18 02:00 08/30/18 03:00 Temperature Pulse Rate 82 78 78 Respiratory Rate Blood Pressure Pulse Oximetry 08/30/18 04:00 08/30/18 05:00 08/30/18 06:00 Temperature Pulse Rate 72 70 66 Respiratory Rate 16 Blood Pressure 135/99 H Pulse Oximetry 100 08/30/18 07:00 08/30/18 07:49 08/30/18 08:00 Temperature 97.4 F L Pulse Rate 67 74 66 Respiratory Rate 16 Blood Pressure 159/94 H Pulse Oximetry 99 90 L 08/30/18 09:00 Temperature Pulse Rate 92 H Respiratory Rate Blood Pressure Pulse Oximetry Intake & Output 08/29/18 08/30/18 08/30/18 18:59 06:59 18:59 Intake Total 1475 / 1475 240 / 240 Output Total 50 / 50 Balance 1475 / 1475 190 / 190 Weight 71.1 kg Intake: IV 115 / 115 KCl Inj 30 MEQ In NS Inj 100 ML 115 / 115 @ 38.333 mls/hr IV.CONT ONCE ONE Rx#:[id number] Oral 1360 / 1360 240 / 240 Output: Urine 50 / 50 Other: # Voids 2 Date of Last Bowel Movement 08/29/18 08/29/18 08/29/18 # Bowel Movements 1 [address] <[address] - Last Filed: 08/30/18 11:30> Assessment and Plan - Assessment (1) End stage renal disease Code(s): N18.6 - End stage renal disease Status: Acute Plan: Patient has polycystic kidney disease which could have contributed to his End- Stage Renal Disease. Patient previously was getting dialysis but stopped. Patient was refusing dialysis on admission to the hospital. Patient was evaluated in the emergency department by psychiatry who determined that the patient does not have capacity to make medical decisions at this time. Monitor fluid and electrolytes. Avoid Gadolinium. Seen during hemodialysis, K bath adjusted with dialysis Labs are pending. (2) Hypertension Code(s): I10 - Essential (primary) hypertension Status: Acute Plan: Monitor BP. Well controlled (3) Delirium due to another medical condition Code(s): F05 - Delirium due to known physiological condition Status: Acute Plan: Was evaluated in the emergency department by psychiatry who determined that the patient does not have capacity to make medical decisions at this time. Will continue to follow with psychiatry. (4) Anemia Code(s): D64.9 - Anemia, unspecified Status: Acute Plan: Epogen with dialysis. labs pending. (5) Metabolic bone disease Code(s): E88.9 - Metabolic disorder, unspecified; M90.80 - Osteopathy in diseases classified elsewhere, unspecified site Status: Acute Plan: Monitor phosphorus intermittently. Continue phoslo <Luzmaria Jin - Last Filed: 08/30/18 09:06> - Assessment (1) End stage renal disease Code(s): N18.6 - End stage renal disease Status: Acute Plan: Patient seen during the HD, no SOB. Has low Calcium, on Phoslo, Po4 is better. Add Calcitriol. (2) Hypertension Code(s): I10 - Essential (primary) hypertension Status: Acute (3) Delirium due to another medical condition Code(s): F05 - Delirium due to known physiological condition Status: Acute (4) Anemia Code(s): D64.9 - Anemia, unspecified Status: Acute (5) Metabolic bone disease Code(s): E88.9 - Metabolic disorder, unspecified; M90.80 - Osteopathy in diseases classified elsewhere, unspecified site Status: Acute <Luh Lane - Last Filed: 08/30/18 11:30>
--- NOTE | 2018-08-30 09:22 | P.PNCA ---
Subjective Interval history: alert in nad, denies chest pain Medications and Allergies Active Medications: Active Medications Acetaminophen (Tylenol) 650 mg PO Q4H PRN PRN Reason: Temp > 100.4, pain 1-2 Acetaminophen (Tylenol) 650 mg PO UNSCH PRN PRN Reason: SEE LABEL COMMENTS Calcium Acetate (Phoslo) 667 mg PO TID [facility] Last Admin: 08/29/18 17:45 Dose: 667 mg Carvedilol (Coreg) 6.25 mg PO BID [facility] Last Admin: 08/29/18 20:46 Dose: 6.25 mg Clonidine HCl (Catapres) 0.1 mg PO Q6H PRN PRN Reason: SBP> OR = 180, DBP> OR = 100 Last Admin: 08/27/18 22:52 Dose: 0.1 mg Clonidine HCl (Catapres) 0.1 mg PO UNSCH PRN PRN Reason: SEE LABEL COMMENTS Diphenhydramine HCl (Benadryl) 25 mg PO UNSCH PRN PRN Reason: SEE LABEL COMMENTS Epoetin Isaac (Epogen Inj) 10,000 unit IV.PUSH MOWEFR [facility] Last Admin: 08/29/18 20:51 Dose: Not Given Gelatin (Gelfoam 12 Mm/7 Mm Topical) 1 foam TOPICAL PRN PRN PRN Reason: help stop bleeding from site Gentamicin Sulfate (Gentamicin Inj) 20 mg OTHER WITH DIALYSIS PRN PRN Reason: Dwell Gentamycin Lock Last Admin: 08/28/18 11:20 Dose: 20 mg Heparin Sodium (Porcine) (Heparin Inj) 5,000 units SQ Q8H [facility] Last Admin: 08/30/18 03:06 Dose: 5,000 units Heparin Sodium (Porcine) (Heparin Central Flush) 0 unit IV.FLUSH DAILY PRN PRN Reason: SEE DOSE INSTRUCTIONS Last Admin: 08/27/18 19:25 Dose: 1,000 unit Heparin Sodium (Porcine) (Heparin Inj) 8,000 units OTHER WITH DIALYSIS PRN PRN Reason: for machine prime Heparin Sodium (Porcine) (Heparin Inj) 1,000 units OTHER WITH DIALYSIS PRN PRN Reason: Dwell Heparin to Fill Catheter Last Admin: 08/28/18 11:20 Dose: 1,000 units Vancomycin HCl 1,000 mg/ (Sodium Chloride) 250 mls @ 250 mls/hr IV.SIG [employer]ACTIVE DES[employer]ER [facility] Stop: 08/30/18 14:59 Last Infusion: 08/27/18 16:41 Dose: Infused Cefazolin Sodium/Dextrose (Ancef 2 Gm Premix Inj) 2 gm in 50 mls @ 100 mls/hr IV.SIG [employer]ACTIVE [employer] [facility] Stop: 08/30/18 14:59 Last Infusion: 08/27/18 16:41 Dose: Infused Sodium Chloride (Ns Inj) 1,000 mls @ 0 mls/hr OTHER .Q0M PRN PRN Reason: for prime and rinse back Sodium Chloride (Ns Inj) 1,000 mls @ 200 mls/hr OTHER .Q5H PRN PRN Reason: for dialyzer flush PRN Sodium Chloride (Ns Inj) 1,000 mls @ 0 mls/hr IV.CONT .Q0M PRN PRN Reason: hypotension / volume replace Albumin Human (Flexbumin 25% Inj) 100 mls @ 60 mls/hr IV.SIG WITH DIALYSIS PRN PRN Reason: hypotension / volume replace Mannitol (Mannitol Inj) 12.5 gm IV.PUSH UNSCH PRN PRN Reason: hypotension / volume replace Melatonin (Melatonin) 5 mg PO HS PRN PRN Reason: INSOMNIA Last Admin: 08/28/18 22:00 Dose: 5 mg Nitroglycerin (Nitrostat Sl) 0.4 mg SL Q5M PRN PRN Reason: CHEST PAIN Nitroglycerin (Nitro-Bid 2% Oint) 2 inch TOPICAL Q6HR [facility] Last Admin: 08/30/18 06:12 Dose: 2 inch Ondansetron HCl (Zofran Inj) 4 mg IV.PUSH Q6H PRN PRN Reason: NAUSEA OR VOMITING Ondansetron HCl (Zofran Inj) 4 mg IV.PUSH UNSCH PRN PRN Reason: NAUSEA OR VOMITING Oxycodone HCl (Roxicodone) 5 mg PO Q6H PRN PRN Reason: pain 3-10 Last Admin: 08/30/18 03:03 Dose: 5 mg Pantoprazole Sodium (Protonix) 40 mg PO DAILY [facility] Last Admin: 08/29/18 08:51 Dose: 40 mg Senna/Docusate Sodium (Perla-Colace) 1 tab PO BID [facility] Last Admin: 08/29/18 20:46 Dose: 1 tab Sodium Chloride (Ns Flush) 2 ml IV.FLUSH UNSCH PRN PRN Reason: FLUSH AFTER USING IV ACCESS Last Admin: 08/29/18 20:46 Dose: 2 ml Sodium Chloride (Ns Flush) 0 ml IV.FLUSH PRN PRN PRN Reason: SEE DOSE INSTRUCTIONS Sodium Chloride (Ns Flush) 5 ml IV.FLUSH PRN PRN PRN Reason: flush each lumen during HD Allergies Allergy/AdvReac Type Severity Reaction Status Date / Time codeine Allergy Unknown Hives Verified 08/27/18 10:12 Home Medications Medication Instructions Recorded Confirmed Type No Known Home Medications 08/27/18 08/27/18 History Physical Exam Vital signs: Vital Signs 08/29/18 10:00 08/29/18 11:00 08/29/18 12:00 Temperature 98.0 F Pulse Rate 86 86 84 Respiratory Rate 18 Blood Pressure 142/98 H Pulse Oximetry 99 08/29/18 13:00 08/29/18 14:00 08/29/18 15:00 Temperature Pulse Rate 86 84 89 Respiratory Rate Blood Pressure Pulse Oximetry 08/29/18 15:39 08/29/18 16:00 08/29/18 17:00 Temperature 97.7 F Pulse Rate 76 84 86 Respiratory Rate 18 Blood Pressure 157/104 H 137/82 Pulse Oximetry 100 08/29/18 18:00 08/29/18 19:00 08/29/18 20:00 Temperature 98.9 F Pulse Rate 95 H 87 86 Respiratory Rate 16 Blood Pressure 143/99 H Pulse Oximetry 99 08/29/18 21:00 08/29/18 22:00 08/29/18 23:00 Temperature Pulse Rate 78 84 80 Respiratory Rate Blood Pressure Pulse Oximetry 08/29/18 23:57 08/30/18 00:00 08/30/18 01:00 Temperature Pulse Rate 78 72 82 Respiratory Rate 16 Blood Pressure 126/93 H Pulse Oximetry 99 08/30/18 02:00 08/30/18 03:00 08/30/18 04:00 Temperature Pulse Rate 78 78 72 Respiratory Rate 16 Blood Pressure 135/99 H Pulse Oximetry 100 08/30/18 05:00 08/30/18 06:00 08/30/18 07:49 Temperature 97.4 F L Pulse Rate 70 66 74 Respiratory Rate 16 Blood Pressure 159/94 H Pulse Oximetry 99 08/30/18 08:00 Temperature Pulse Rate Respiratory Rate Blood Pressure Pulse Oximetry 90 L Intake & Output 08/29/18 08/30/18 08/30/18 18:59 06:59 18:59 Intake Total 1475 / 1475 240 / 240 Output Total 50 / 50 Balance 1475 / 1475 190 / 190 Weight 71.1 kg Intake: IV 115 / 115 KCl Inj 30 MEQ In NS Inj 100 ML 115 / 115 @ 38.333 mls/hr IV.CONT ONCE ONE Rx#:[id number] Oral 1360 / 1360 240 / 240 Output: Urine 50 / 50 Other: # Voids 2 Date of Last Bowel Movement 08/29/18 08/29/18 08/29/18 # Bowel Movements 1 0 - Constitutional no acute distress - Routine HEENT Exam Head: Present: normocephalic - Routine Neck Exam Present: supple - Routine Respiratory Exam Present: CTA bilaterally - Routine Cardiovascular Exam Present: S1, S2 - Routine Abdominal Exam Present: soft - Routine Extremities Exam Comments: no ashish Results 08/29/18 05:38 08/29/18 05:38 Lipids 08/28/18 Range/Units 05:45 Triglycerides 103 (42-150) mg/dL Cholesterol 91 L (120-200) mg/dL HDL Cholesterol 29.4 L (40.0-60.0) mg/dL Cholesterol/HDL Ratio 3.09 Ratio CBC 08/29/18 Range/Units 05:38 WBC 5.4 (4.0-11.0) th/mm3 RBC 2.76 L (4.50-5.90) mil/mm3 Hgb 8.8 L (13.0-17.0) gm/dL Hct 25.3 L (39.0-51.0) % Plt Count 87 L (150-450) th/mm3 Comprehensive Metabolic Panel 08/29/18 Range/Units 05:38 Sodium 136 (136-145) meq/L Potassium 3.0 L (3.5-5.1) meq/L Chloride 99 (98-107) meq/L Carbon Dioxide 22.8 (21.0-32.0) meq/L BUN 92 H (7-18) mg/dL Creatinine 12.70 H* D (0.60-1.30) mg/dL Calcium 5.9 L* (8.5-10.1) mg/dL Total Protein 5.3 L (6.4-8.2) g/dL Intake and Output 08/29/18 08/30/18 08/30/18 22:59 06:59 14:59 Intake Total 1360 / 1360 240 / 240 Output Total 50 / 50 Balance 1360 / 1360 190 / 190 Intake: Oral 1360 / 1360 240 / 240 Output: Urine 50 / 50 Other: # Voids 2 Date of Last Bowel Movement 08/29/18 08/29/18 08/29/18 # Bowel Movements 1 0 Weight 71.1 kg - Imaging and Cardiology Imaging: Impressions Central Venous Line 08/27/18 00:00 CONCLUSION: Uncomplicated PermaCath placement as above. Assessment and Plan - Assessment (1) NSTEMI (non-ST elevated myocardial infarction) Code(s): I21.4 - Non-ST elevation (NSTEMI) myocardial infarction Status: Acute (2) Thrombocytopenia Code(s): D69.6 - Thrombocytopenia, unspecified Status: Acute (3) Elevated troponin Code(s): R74.8 - Abnormal levels of other serum enzymes Status: Acute (4) Delirium due to another medical condition Code(s): F05 - Delirium due to known physiological condition Status: Acute (5) End stage renal disease Code(s): N18.6 - End stage renal disease Status: Acute (6) Anemia Code(s): D64.9 - Anemia, unspecified Status: Acute - Plan 1.) NSTEMI - assymptomatic on coreg 6.25 mg bid and 2 in ntp, ac held due to thrombocytopenia, anemia and unstable hgb and platelet count; rec medical management due to inability to consent, multiple comorbidities, patient's refusal for [facility] dialysis
[2018-08-30 10:09] LABS: Hematocrit 25.3 % (39.0-51.0); Hemoglobin 8.7 gm/dL (13.0-17.0); Mean Corpuscular HGB Conc 34.1 % (32.0-36.0); Mean Corpuscular Hemoglobin 31.5 pg (27.0-34.0); Mean Corpuscular Volume 92.2 fL (80.0-100.0); Mean Platelet Volume 9.1 fL (7.0-11.0); Platelet Count 84 th/mm3 (150-450); Red Blood Count 2.75 mil/mm3 (4.50-5.90); White Blood Count 1.7 th/mm3 (4.0-11.0)
[2018-08-30 10:42] LABS: Albumin 2.7 g/dL (3.4-5.0); Carbon Dioxide 24.8 meq/L (21.0-32.0); Magnesium 1.5 mg/dL (1.5-2.5); Phosphorus 4.3 mg/dL (2.5-4.9); Potassium 3.4 meq/L (3.5-5.1)
[2018-08-30 11:12] LABS: Calcium 5.9 mg/dL (8.5-10.1)
[2018-08-30] MEDS: Calcium Acetate 667 MG Capsule PO SCH ×3 (13:15→17:23)
--- NOTE | 2018-08-30 13:16 | IR ---
EXAM DATE: 08/28/2018 9:00 AM EST AGE/SEX: 53 years / Male INDICATIONS: Patient presents with clogged dialysis catheter in need of removal for placement of kayla lysis catheter placement. CLINICAL DATA: This is the patient's initial encounter. Patient reports that signs and symptoms have been present for 1 week and indicates a pain score of 3/10. MEDICAL/SURGICAL HISTORY: . Bipolar disorder, Hypertension, kidney failure. . No history of pr evious surgery. COMPARISON: No prior exams available for comparison. IMAGE SERIES: 0 ACCESS SITE: . . PROCEDURE: 1. PermaCath removal. The risks, benefits and alternatives to the procedure were explained and verbal and written consent w as obtained. The site was prepped in sterile fashion. Full sterile technique was used, including ca p, mask, sterile gloves and gown and a large sterile sheet. Hand hygiene and 2% chlorhexidine and/or betadine/alcohol prep was utilized per protocol for cutaneous antisepsis. The skin and subcutaneous tissues were infiltrated with local anesthetic solution. The tract was anesthetized with 1% Lidocaine using. The Permcath was dissected from the subcutaneous tissues and easily removed in one piece. Manual pressure was applied to the venotomy site until hem ostasis was obtained. Sterile dressing was applied. The patient tolerated the procedure well and there were no complications. CONCLUSION: Uncomplicated Permcath removal. Electronically signed by: Tyrone Galvan MD 08/30/2018 1:14 PM EST
[2018-08-30] MEDS: Senna/Docusate Sodium 8.6/50 MG Tablet PO SCH ×2 (13:26→20:43)
[2018-08-30] MEDS: Carvedilol 6.25 MG Tablet PO SCH ×2 (13:26→20:38)
[2018-08-30] MEDS: Calcitriol 0.25 MCG Capsule PO SCH (13:32)
--- NOTE | 2018-08-30 14:26 | P.PNIM ---
Subjective Interval history: The patient was seen following dialysis. He said he was feeling well. He said that he understood that dialysis cleans his blood and that he no longer wished to receive it anymore. He said he would like to be out of the hospital by Thanksgiving. Discussed with nursing at the bedside. Physical Exam Vital signs: Vital Signs 08/29/18 15:00 08/29/18 15:39 08/29/18 16:00 Temperature 97.7 F Pulse Rate 89 76 84 Respiratory Rate 18 Blood Pressure 157/104 H 137/82 Pulse Oximetry 100 08/29/18 17:00 08/29/18 18:00 08/29/18 19:00 Temperature Pulse Rate 86 95 H 87 Respiratory Rate Blood Pressure Pulse Oximetry 08/29/18 20:00 08/29/18 21:00 08/29/18 22:00 Temperature 98.9 F Pulse Rate 86 78 84 Respiratory Rate 16 Blood Pressure 143/99 H Pulse Oximetry 99 08/29/18 23:00 08/29/18 23:57 08/30/18 00:00 Temperature Pulse Rate 80 78 72 Respiratory Rate 16 Blood Pressure 126/93 H Pulse Oximetry 99 08/30/18 01:00 08/30/18 02:00 08/30/18 03:00 Temperature Pulse Rate 82 78 78 Respiratory Rate Blood Pressure Pulse Oximetry 08/30/18 04:00 08/30/18 05:00 08/30/18 06:00 Temperature Pulse Rate 72 70 66 Respiratory Rate 16 Blood Pressure 135/99 H Pulse Oximetry 100 08/30/18 07:00 08/30/18 07:49 08/30/18 08:00 Temperature 97.4 F L Pulse Rate 67 74 66 Respiratory Rate 16 Blood Pressure 159/94 H Pulse Oximetry 99 90 L 08/30/18 09:00 08/30/18 10:00 08/30/18 11:00 Temperature Pulse Rate 92 H 90 98 H Respiratory Rate Blood Pressure Pulse Oximetry 08/30/18 12:00 08/30/18 13:16 Temperature 97.7 F Pulse Rate 90 109 H Respiratory Rate 18 Blood Pressure 151/97 H Pulse Oximetry 100 Intake & Output 08/29/18 08/30/18 08/30/18 18:59 06:59 18:59 Intake Total 1475 / 1475 240 / 240 Output Total 50 / 50 1999 1999 Balance 1475 / 1475 190 / 190 -1999 Weight 71.1 kg Intake: IV 115 / 115 KCl Inj 30 MEQ In NS Inj 100 ML 115 / 115 @ 38.333 mls/hr IV.CONT ONCE ONE Rx#:[id number] Oral 1360 / 1360 240 / 240 Output: Urine 50 / 50 Hemodialysis Amount 1999 Other: # Voids 2 Date of Last Bowel Movement 08/29/18 08/29/18 08/29/18 # Bowel Movements 1 0 Narrative: GENERAL: NAD. NECK: Trachea midline. No JVD. CARDIOVASCULAR: Regular rate and rhythm. No murmur appreciated. Permacath to the right chest. RESPIRATORY: Scattered rhonchi. GASTROINTESTINAL: Abdomen soft, minimally tender, distended abdomen. MUSCULOSKELETAL: No obvious deformities. No clubbing. No cyanosis. Mild bilateral lower extremity edema. NEUROLOGICAL: Awake and alert. Slow speech. PSYCHIATRIC: Flat affect. Results - Labs CBC & Chem 7: 08/30/18 09:15 08/30/18 09:15 Laboratory Results - last 24 hr 08/30/18 08/30/18 09:15 09:15 WBC 1.7 L RBC 2.75 L Hgb 8.7 L Hct 25.3 L MCV 92.2 MCH 31.5 MCHC 34.1 RDW 14.0 Plt Count 84 L MPV 9.1 Sodium 137 Potassium 3.4 L Chloride 100 Carbon Dioxide 24.8 Anion Gap 12 BUN 82 H Creatinine 10.97 H* D Estimated GFR 5 L Random Glucose 86 Calcium 5.9 L* Phosphorus 4.3 D Magnesium 1.5 Albumin 2.7 L - Imaging Impressions Tube Removal 08/27/18 00:00 CONCLUSION: Uncomplicated Permcath removal. Assessment and Plan - Plan ESRD/Hyponatremia/Hypocalcemia/Lack of capacity The pt stopped dialysis about three months ago. He presented with a creatinine over 19. He does not want to resume dialysis but psychiatry has determined that he does not have the capacity to make that decision. Nephrology consult appreciated. IR placed Permacath. -continue dialysis per nephrology. -follow BMP. -Hospice consult if the patient is deemed by psychiatry to have capacity. Chest pain The pt presented to the hospital with left sided chest pain. He says he has had it on and off. Likely s/t above. EKG with NSR, T wave inversions. Trops peaked at 0.08. Cardiology consult appreciated. -telemetry. -pain control and oxygen as needed. -follow up with cardiology. Beta linda increased and Nitropaste added. -continue PPI. HTN Improved. -dialysis as above. -clonidine as needed. Pancreatitis Lipase elevated over 700. Has mild abdominal tenderness. Improved. -ADAT. Depression The pt endorses depression. He has a history of Bipolar disorder and is not on any meds. -Psychiatry planning on reevaluating patient's capacity on Saturday. PPx: Heparin
[2018-08-31] MEDS: Heparin - SQ 10,000 UNITS/ML Vial SQ SCH ×3 (03:37→20:01)
[2018-08-31 06:23] LABS: Baso % (Auto) 0.7 % (0.0-2.0); Eos # (Auto) 0.1 th/mm3 (0.0-0.4); Hemoglobin 7.7 gm/dL (13.0-17.0); Lymph # (Auto) 0.5 th/mm3 (1.0-4.8); Lymph % (Auto) 10.9 % (9.0-44.0); Mean Corpuscular HGB Conc 33.3 % (32.0-36.0); Mean Corpuscular Volume 93.2 fL (80.0-100.0); Mean Platelet Volume 8.8 fL (7.0-11.0); Mono # (Auto) 0.4 th/mm3 (0.0-0.9); Mono % (Auto) 9.2 % (0.0-8.0); Neut # (Auto) 3.5 th/mm3 (1.8-7.7); Neut % (Auto) 77.2 % (16.0-70.0); Platelet Count 87 th/mm3 (150-450); Red Blood Count 2.47 mil/mm3 (4.50-5.90); Red Cell Distribution Width 13.7 % (11.6-17.2); White Blood Count 4.5 th/mm3 (4.0-11.0)
[2018-08-31 07:02] LABS: Calcium 6.1 mg/dL (8.5-10.1); Carbon Dioxide 26.1 meq/L (21.0-32.0); Phosphorus 3.8 mg/dL (2.5-4.9); Potassium 3.6 meq/L (3.5-5.1)
[2018-08-31 07:35] LABS: Total Protein 5.3 g/dL (6.4-8.2)
[2018-08-31 09:45] LABS: Ovalocytes 1+; Platelet Morphology Normal (Normal)
--- NOTE | 2018-08-31 10:09 | P.PNCA ---
Subjective Interval history: assymptomatic in nad Medications and Allergies Active Medications: Active Medications Acetaminophen (Tylenol) 650 mg PO Q4H PRN PRN Reason: Temp > 100.4, pain 1-2 Acetaminophen (Tylenol) 650 mg PO UNSCH PRN PRN Reason: SEE LABEL COMMENTS Calcitriol (Rocaltrol) 0.25 mcg PO DAILY [facility] Last Admin: 08/30/18 13:32 Dose: 0.25 mcg Calcium Acetate (Phoslo) 667 mg PO TID [facility] Last Admin: 08/30/18 17:23 Dose: 667 mg Carvedilol (Coreg) 6.25 mg PO BID [facility] Last Admin: 08/30/18 20:38 Dose: 6.25 mg Clonidine HCl (Catapres) 0.1 mg PO Q6H PRN PRN Reason: SBP> OR = 180, DBP> OR = 100 Last Admin: 08/27/18 22:52 Dose: 0.1 mg Clonidine HCl (Catapres) 0.1 mg PO UNSCH PRN PRN Reason: SEE LABEL COMMENTS Diphenhydramine HCl (Benadryl) 25 mg PO UNSCH PRN PRN Reason: SEE LABEL COMMENTS Epoetin [place] (Epogen Inj) 10,000 unit IV.PUSH MOWEFR [facility] Last Admin: 08/29/18 20:51 Dose: Not Given Gelatin (Gelfoam 12 Mm/7 Mm Topical) 1 foam TOPICAL PRN PRN PRN Reason: help stop bleeding from site Gentamicin Sulfate (Gentamicin Inj) 20 mg OTHER WITH DIALYSIS PRN PRN Reason: Dwell Gentamycin Lock Last Admin: 08/28/18 11:20 Dose: 20 mg Heparin Sodium (Porcine) (Heparin Inj) 5,000 units SQ Q8H [facility] Last Admin: 08/31/18 03:37 Dose: 5,000 units Heparin Sodium (Porcine) (Heparin Central Flush) 0 unit IV.FLUSH DAILY PRN PRN Reason: SEE DOSE INSTRUCTIONS Last Admin: 08/27/18 19:25 Dose: 1,000 unit Heparin Sodium (Porcine) (Heparin Inj) 8,000 units OTHER WITH DIALYSIS PRN PRN Reason: for machine prime Heparin Sodium (Porcine) (Heparin Inj) 1,000 units OTHER WITH DIALYSIS PRN PRN Reason: Dwell Heparin to Fill Catheter Last Admin: 08/28/18 11:20 Dose: 1,000 units Sodium Chloride (Ns Inj) 1,000 mls @ 0 mls/hr OTHER .Q0M PRN PRN Reason: for prime and rinse back Sodium Chloride (Ns Inj) 1,000 mls @ 200 mls/hr OTHER .Q5H PRN PRN Reason: for dialyzer flush PRN Sodium Chloride (Ns Inj) 1,000 mls @ 0 mls/hr IV.CONT .Q0M PRN PRN Reason: hypotension / volume replace Albumin Human (Flexbumin 25% Inj) 100 mls @ 60 mls/hr IV.SIG WITH DIALYSIS PRN PRN Reason: hypotension / volume replace Mannitol (Mannitol Inj) 12.5 gm IV.PUSH UNSCH PRN PRN Reason: hypotension / volume replace Melatonin (Melatonin) 5 mg PO HS PRN PRN Reason: INSOMNIA Last Admin: 08/28/18 22:00 Dose: 5 mg Nitroglycerin (Nitrostat Sl) 0.4 mg SL Q5M PRN PRN Reason: CHEST PAIN Nitroglycerin (Nitro-Bid 2% Oint) 2 inch TOPICAL Q6HR [facility] Last Admin: 08/31/18 05:42 Dose: 2 inch Ondansetron HCl (Zofran Inj) 4 mg IV.PUSH Q6H PRN PRN Reason: NAUSEA OR VOMITING Ondansetron HCl (Zofran Inj) 4 mg IV.PUSH UNSCH PRN PRN Reason: NAUSEA OR VOMITING Oxycodone HCl (Roxicodone) 5 mg PO Q6H PRN PRN Reason: pain 3-10 Last Admin: 08/30/18 20:40 Dose: 5 mg Pantoprazole Sodium (Protonix) 40 mg PO DAILY [facility] Last Admin: 08/30/18 13:26 Dose: 40 mg Senna/Docusate Sodium (Perla-Colace) 1 tab PO BID [facility] Last Admin: 08/30/18 20:43 Dose: Not Given Sodium Chloride (Ns Flush) 2 ml IV.FLUSH UNSCH PRN PRN Reason: FLUSH AFTER USING IV ACCESS Last Admin: 08/30/18 20:41 Dose: 2 ml Sodium Chloride (Ns Flush) 0 ml IV.FLUSH PRN PRN PRN Reason: SEE DOSE INSTRUCTIONS Sodium Chloride (Ns Flush) 5 ml IV.FLUSH PRN PRN PRN Reason: flush each lumen during HD Allergies Allergy/AdvReac Type Severity Reaction Status Date / Time codeine Allergy Unknown Hives Verified 08/27/18 10:12 Home Medications Medication Instructions Recorded Confirmed Type No Known Home Medications 08/27/18 08/27/18 History Physical Exam Vital signs: Vital Signs 08/30/18 11:00 08/30/18 12:00 08/30/18 13:00 Temperature Pulse Rate 98 H 90 116 H Respiratory Rate Blood Pressure Pulse Oximetry 08/30/18 13:16 08/30/18 14:00 08/30/18 15:00 Temperature 97.7 F Pulse Rate 109 H 92 H 95 H Respiratory Rate 18 Blood Pressure 151/97 H Pulse Oximetry 100 08/30/18 16:00 08/30/18 17:00 08/30/18 18:00 Temperature 98.1 F Pulse Rate 88 86 104 H Respiratory Rate 16 Blood Pressure 133/90 Pulse Oximetry 99 08/30/18 19:00 08/30/18 20:00 08/30/18 21:00 Temperature 99 F Pulse Rate 94 H 92 H 92 H Respiratory Rate 18 Blood Pressure 123/74 Pulse Oximetry 99 08/30/18 22:00 08/30/18 23:00 08/30/18 23:46 Temperature Pulse Rate 78 82 84 Respiratory Rate 16 Blood Pressure 121/94 H Pulse Oximetry 98 08/31/18 00:00 08/31/18 01:00 08/31/18 02:00 Temperature Pulse Rate 82 84 90 Respiratory Rate Blood Pressure Pulse Oximetry 08/31/18 03:00 08/31/18 04:00 08/31/18 05:00 Temperature Pulse Rate 87 82 68 Respiratory Rate 16 Blood Pressure 125/91 H Pulse Oximetry 99 08/31/18 06:00 08/31/18 08:15 Temperature Pulse Rate 80 Respiratory Rate Blood Pressure Pulse Oximetry 98 Intake & Output 08/30/18 08/31/18 08/31/18 18:59 06:59 18:59 Intake Total 920 / 920 240 / 240 Output Total 1999 0 / 0 Balance -1080 / -1080 240 / 240 Intake: Oral 920 / 920 240 / 240 Output: Urine 0 / 0 Hemodialysis Amount 1999 Other: # Voids 1 Date of Last Bowel Movement 08/29/18 08/29/18 - Constitutional no acute distress - Routine HEENT Exam Head: Present: normocephalic - Routine Neck Exam Present: supple - Routine Respiratory Exam Present: CTA bilaterally - Routine Cardiovascular Exam Present: S1, S2 - Routine Abdominal Exam Present: soft - Routine Extremities Exam Comments: no ashish Results 08/31/18 05:48 08/31/18 05:48 CBC 08/30/18 08/31/18 Range/Units 09:15 05:48 WBC 1.7 L 4.5 D (4.0-11.0) th/mm3 RBC 2.75 L 2.47 L (4.50-5.90) mil/mm3 Hgb 8.7 L 7.7 L (13.0-17.0) gm/dL Hct 25.3 L 23.0 L (39.0-51.0) % Plt Count 84 L 87 L (150-450) th/mm3 Neut # (Auto) 3.5 (1.8-7.7) th/mm3 Lymph # (Auto) 0.5 L (1.0-4.8) th/mm3 [place] # (Auto) 0.4 (0.0-0.9) th/mm3 Eos # (Auto) 0.1 (0.0-0.4) th/mm3 Baso # (Auto) 0.0 (0.0-0.2) th/mm3 Comprehensive Metabolic Panel 08/30/18 08/31/18 Range/Units 09:15 05:48 Sodium 137 137 (136-145) meq/L Potassium 3.4 L 3.6 (3.5-5.1) meq/L Chloride 100 99 (98-107) meq/L Carbon Dioxide 24.8 26.1 (21.0-32.0) meq/L BUN 82 H 66 H (7-18) mg/dL Creatinine 10.97 H* D 9.75 H (0.60-1.30) mg/dL Calcium 5.9 L* 6.1 L* (8.5-10.1) mg/dL Total Protein 5.3 L (6.4-8.2) g/dL Albumin 2.7 L (3.4-5.0) g/dL Intake and Output 08/30/18 08/31/18 08/31/18 22:59 06:59 14:59 Intake Total 920 / 920 240 / 240 Output Total 0 / 0 Balance 920 / 920 240 / 240 Intake: Oral 920 / 920 240 / 240 Output: Urine 0 / 0 Other: # Voids 1 Date of Last Bowel Movement 08/29/18 08/29/18 - Imaging and Cardiology Imaging: Impressions Tube Removal 08/27/18 00:00 CONCLUSION: Uncomplicated Permcath removal. Assessment and Plan - Assessment (1) NSTEMI (non-ST elevated myocardial infarction) Code(s): I21.4 - Non-ST elevation (NSTEMI) myocardial infarction Status: Acute (2) Thrombocytopenia Code(s): D69.6 - Thrombocytopenia, unspecified Status: Acute (3) Elevated troponin Code(s): R74.8 - Abnormal levels of other serum enzymes Status: Acute (4) Delirium due to another medical condition Code(s): F05 - Delirium due to known physiological condition Status: Acute (5) End stage renal disease Code(s): N18.6 - End stage renal disease Status: Acute (6) Anemia Code(s): D64.9 - Anemia, unspecified Status: Acute - Plan 1.) NSTEMI - assymptomatic on coreg 6.25 mg bid and 2 in ntp, ac held due to thrombocytopenia, anemia and unstable hgb and platelet count; rec medical management due to inability to consent, multiple comorbidities, patient's refusal for correction dialysis
[2018-08-31] MEDS: Carvedilol 6.25 MG Tablet PO SCH ×2 (10:18→20:00)
[2018-08-31] MEDS: Senna/Docusate Sodium 8.6/50 MG Tablet PO SCH ×2 (10:18→20:01)
[2018-08-31] MEDS: Calcium Acetate 667 MG Capsule PO SCH ×3 (10:18→17:14)
[2018-08-31] MEDS: Calcitriol 0.25 MCG Capsule PO SCH (10:18)
--- NOTE | 2018-08-31 11:23 | P.PNNP ---
Subjective Interval history: Patient is alert, no SOB, has mild pain in both feet. Physical Exam Vital signs: Vital Signs 08/30/18 12:00 08/30/18 13:00 08/30/18 13:16 Temperature 97.7 F Pulse Rate 90 116 H 109 H Respiratory Rate 18 Blood Pressure 151/97 H Pulse Oximetry 100 08/30/18 14:00 08/30/18 15:00 08/30/18 16:00 Temperature 98.1 F Pulse Rate 92 H 95 H 88 Respiratory Rate 16 Blood Pressure 133/90 Pulse Oximetry 99 08/30/18 17:00 08/30/18 18:00 08/30/18 19:00 Temperature Pulse Rate 86 104 H 94 H Respiratory Rate Blood Pressure Pulse Oximetry 08/30/18 20:00 08/30/18 21:00 08/30/18 22:00 Temperature 99 F Pulse Rate 92 H 92 H 78 Respiratory Rate 18 Blood Pressure 123/74 Pulse Oximetry 99 08/30/18 23:00 08/30/18 23:46 08/31/18 00:00 Temperature Pulse Rate 82 84 82 Respiratory Rate 16 Blood Pressure 121/94 H Pulse Oximetry 98 08/31/18 01:00 08/31/18 02:00 08/31/18 03:00 Temperature Pulse Rate 84 90 87 Respiratory Rate Blood Pressure Pulse Oximetry 08/31/18 04:00 08/31/18 05:00 08/31/18 06:00 Temperature Pulse Rate 82 68 80 Respiratory Rate 16 Blood Pressure 125/91 H Pulse Oximetry 99 08/31/18 07:00 08/31/18 08:00 08/31/18 08:15 Temperature 97.5 F L Pulse Rate 93 H 93 H Respiratory Rate 14 Blood Pressure 146/98 H Pulse Oximetry 100 98 08/31/18 09:00 08/31/18 10:00 08/31/18 11:00 Temperature Pulse Rate 83 83 80 Respiratory Rate Blood Pressure Pulse Oximetry Intake & Output 08/30/18 08/31/18 08/31/18 18:59 06:59 18:59 Intake Total 920 / 920 240 / 240 Output Total 1999 0 / 0 Balance -1080 / -1080 240 / 240 Weight 77 kg Intake: Oral 920 / 920 240 / 240 Output: Urine 0 / 0 Hemodialysis Amount 1999 Other: # Voids 1 Date of Last Bowel Movement 08/29/18 08/29/18 08/30/18 Narrative: GENERAL: NAD. NECK: Trachea midline. No JVD. CARDIOVASCULAR: Regular rate and rhythm. No murmur appreciated. Permacath to the right chest. RESPIRATORY: Scattered rhonchi. GASTROINTESTINAL: Abdomen soft, minimally tender, distended abdomen. MUSCULOSKELETAL: No obvious deformities. No clubbing. No cyanosis. Mild bilateral lower extremity edema. NEUROLOGICAL: Awake and alert. Slow speech. PSYCHIATRIC: Flat affect. Assessment and Plan - Assessment (1) End stage renal disease Code(s): N18.6 - End stage renal disease Status: Acute Plan: Patient has the HD done yesterday, tolerated well., no SOB. Has low Calcium, on Phoslo, Po4 is better. Add Calcitriol. Continue HD as schedule. (2) Hypertension Code(s): I10 - Essential (primary) hypertension Status: Acute Plan: Monitor BP. Well controlled (3) Delirium due to another medical condition Code(s): F05 - Delirium due to known physiological condition Status: Acute Plan: Was evaluated in the emergency department by psychiatry who determined that the patient does not have capacity to make medical decisions at this time. Will continue to follow with psychiatry. (4) Anemia Code(s): D64.9 - Anemia, unspecified Status: Acute Plan: Epogen with dialysis. labs pending. (5) Metabolic bone disease Code(s): E88.9 - Metabolic disorder, unspecified; M90.80 - Osteopathy in diseases classified elsewhere, unspecified site Status: Acute Plan: Monitor phosphorus intermittently. Continue phoslo
--- NOTE | 2018-08-31 11:51 | P.PNIM ---
Subjective Interval history: The patient complained of pain in both of his big toes, greater on the right. He said he has a history of gout. He says he is able to take hydrocodone. He endorses mild abdominal discomfort. Discussed with nursing. Physical Exam Vital signs: Vital Signs 08/30/18 12:00 08/30/18 13:00 08/30/18 13:16 Temperature 97.7 F Pulse Rate 90 116 H 109 H Respiratory Rate 18 Blood Pressure 151/97 H Pulse Oximetry 100 08/30/18 14:00 08/30/18 15:00 08/30/18 16:00 Temperature 98.1 F Pulse Rate 92 H 95 H 88 Respiratory Rate 16 Blood Pressure 133/90 Pulse Oximetry 99 08/30/18 17:00 08/30/18 18:00 08/30/18 19:00 Temperature Pulse Rate 86 104 H 94 H Respiratory Rate Blood Pressure Pulse Oximetry 08/30/18 20:00 08/30/18 21:00 08/30/18 22:00 Temperature 99 F Pulse Rate 92 H 92 H 78 Respiratory Rate 18 Blood Pressure 123/74 Pulse Oximetry 99 08/30/18 23:00 08/30/18 23:46 08/31/18 00:00 Temperature Pulse Rate 82 84 82 Respiratory Rate 16 Blood Pressure 121/94 H Pulse Oximetry 98 08/31/18 01:00 08/31/18 02:00 08/31/18 03:00 Temperature Pulse Rate 84 90 87 Respiratory Rate Blood Pressure Pulse Oximetry 08/31/18 04:00 08/31/18 05:00 08/31/18 06:00 Temperature Pulse Rate 82 68 80 Respiratory Rate 16 Blood Pressure 125/91 H Pulse Oximetry 99 08/31/18 07:00 08/31/18 08:00 08/31/18 08:15 Temperature 97.5 F L Pulse Rate 93 H 93 H Respiratory Rate 14 Blood Pressure 146/98 H Pulse Oximetry 100 98 08/31/18 09:00 08/31/18 10:00 08/31/18 11:00 Temperature Pulse Rate 83 83 80 Respiratory Rate Blood Pressure Pulse Oximetry Intake & Output 08/30/18 08/31/18 08/31/18 18:59 06:59 18:59 Intake Total 920 / 920 240 / 240 Output Total 1999 0 / 0 Balance -1080 / -1080 240 / 240 Weight 77 kg Intake: Oral 920 / 920 240 / 240 Output: Urine 0 / 0 Hemodialysis Amount 1999 Other: # Voids 1 Date of Last Bowel Movement 08/29/18 08/29/18 08/30/18 Narrative: GENERAL: NAD. NECK: Trachea midline. No JVD. CARDIOVASCULAR: Regular rate and rhythm. No murmur appreciated. Permacath to the right chest. RESPIRATORY: Scattered rhonchi. GASTROINTESTINAL: Abdomen soft, minimally tender, distended abdomen. MUSCULOSKELETAL: No obvious deformities. No clubbing. No cyanosis. Mild bilateral lower extremity edema. Tenderness to palpation of toes, no erythema noted. NEUROLOGICAL: Awake and alert. Slow speech. PSYCHIATRIC: Flat affect. Results - Labs CBC & Chem 7: 08/31/18 05:48 08/31/18 05:48 Laboratory Results - last 24 hr 08/31/18 08/31/18 08/31/18 05:48 05:48 05:48 WBC 4.5 D RBC 2.47 L Hgb 7.7 L Hct 23.0 L MCV 93.2 MCH 31.0 MCHC 33.3 RDW 13.7 Plt Count 87 L MPV 8.8 Prelim Diff (Auto) Slide review pending Neut % (Auto) 77.2 H Lymph % (Auto) 10.9 [place] % (Auto) 9.2 H Eos % (Auto) 2.0 Baso % (Auto) 0.7 Neut # (Auto) 3.5 Lymph # (Auto) 0.5 L [place] # (Auto) 0.4 Eos # (Auto) 0.1 Baso # (Auto) 0.0 WBC Differential . Diff Scan Auto diff confirmed Differential Comment . Platelet Estimate Low L Platelet Morphology Normal Ovalocytes 1+ H Sodium 137 Potassium 3.6 Chloride 99 Carbon Dioxide 26.1 Anion Gap 12 BUN 66 H Creatinine 9.75 H Estimated GFR 6 L Random Glucose 97 Uric Acid 5.2 Calcium 6.1 L* Prot Corrected Calcium 6.9 L* Phosphorus 3.8 Total Protein 5.3 L - Imaging Impressions Tube Removal 08/27/18 00:00 CONCLUSION: Uncomplicated Permcath removal. Assessment and Plan - Plan ESRD/Hyponatremia/Hypocalcemia/Lack of capacity The pt stopped dialysis about three months ago. He presented with a creatinine over 19. He does not want to resume dialysis but psychiatry has determined that he does not have the capacity to make that decision. Nephrology consult appreciated. IR placed Permacath. -continue dialysis per nephrology. -follow BMP. -Hospice consult if the patient is deemed by psychiatry to have capacity. Chest pain The pt presented to the hospital with left sided chest pain. He says he has had it on and off. Likely s/t above. EKG with NSR, T wave inversions. Trops peaked at 0.08. Cardiology consult appreciated. -telemetry. -pain control and oxygen as needed. -follow up with cardiology. Beta linda increased and Nitropaste added. -continue PPI. HTN Improved. -dialysis as above. -clonidine as needed. Abdominal distention S/t volume overload. 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 -obtain KUB. -dialysis. Depression The pt endorses depression. He has a history of Bipolar disorder and is not on any meds. -Psychiatry planning on reevaluating patient's capacity on Saturday. Toe pain Pt has a history of gout. Exam only remarkable for mild tenderness to palpation of toes. Uric acid not elevated. -hydrocodone as needed. PPx: Heparin Discharge Planning: Need psych re-eval tomorrow.
--- NOTE | 2018-08-31 14:22 | XR ---
EXAM DATE: 08/31/2018 2:16 PM EST AGE/SEX: 53 years / Male INDICATIONS: Abdominal distention. CLINICAL DATA: This is the patient's initial encounter. Patient reports that signs and symptoms have been present for 4 - 6 days and indicates a pain score of 8/10. MEDICAL/SURGICAL HISTORY: . Gastroesophageal reflux disease. Hypertension dialysis, renal failu re, polycystic kidney disease. None. COMPARISON: No prior exams available for comparison. FINDINGS: The abdominal bowel gas pattern is normal. No abnormal masses, calcifications, or organomegaly is s een. The osseous structures are unremarkable. CONCLUSION: Negative examination. Electronically signed by: Kirk Puente MD 08/31/2018 2:20 PM EST
[2018-08-31] MEDS ORDERED: Sodium Chloride 0.9% 2 ML Flush PRN IV.FLUSH (16:15)
[2018-08-31] MEDS: Sodium Chloride 0.9% 2 ML Flush BID IV.FLUSH SCH (20:01)
[2018-09-01] MEDS: Heparin - SQ 10,000 UNITS/ML Vial SQ SCH ×2 (03:08→11:04)
[2018-09-01 06:52] LABS: Mean Corpuscular HGB Conc 33.2 % (32.0-36.0); Mean Corpuscular Hemoglobin 31.4 pg (27.0-34.0); Mean Corpuscular Volume 94.7 fL (80.0-100.0); Platelet Count 100 th/mm3 (150-450); Red Blood Count 2.53 mil/mm3 (4.50-5.90); Red Cell Distribution Width 14.4 % (11.6-17.2); White Blood Count 4.9 th/mm3 (4.0-11.0)
[2018-09-01 07:05] LABS: Calcium 6.2 mg/dL (8.5-10.1); Carbon Dioxide 24.6 meq/L (21.0-32.0); Magnesium 1.6 mg/dL (1.5-2.5); Phosphorus 4.3 mg/dL (2.5-4.9); Potassium 4.1 meq/L (3.5-5.1)
[2018-09-01 07:29] LABS: Total Protein 5.6 g/dL (6.4-8.2)
--- NOTE | 2018-09-01 07:47 | P.PNCA ---
Subjective Interval history: assymptomatic in nad Medications and Allergies Active Medications: Active Medications Acetaminophen (Tylenol) 650 mg PO Q4H PRN PRN Reason: Temp > 100.4, pain 1-2 Acetaminophen (Tylenol) 650 mg PO UNSCH PRN PRN Reason: SEE LABEL COMMENTS Hydrocodone Bitart/Acetaminophen ([place] 5/325) 1 tab PO Q4H PRN PRN Reason: pain 3-5 Last Admin: 08/31/18 23:21 Dose: 1 tab Hydrocodone Bitart/Acetaminophen ([place] 5/325) 2 tab PO Q4H PRN PRN Reason: pain 6-10 Calcitriol (Rocaltrol) 0.25 mcg PO DAILY [facility] Last Admin: 08/31/18 10:18 Dose: 0.25 mcg Calcium Acetate (Phoslo) 667 mg PO TID [facility] Last Admin: 08/31/18 17:14 Dose: 667 mg Carvedilol (Coreg) 6.25 mg PO BID [facility] Last Admin: 08/31/18 20:00 Dose: 6.25 mg Clonidine HCl (Catapres) 0.1 mg PO Q6H PRN PRN Reason: SBP> OR = 180, DBP> OR = 100 Last Admin: 08/31/18 12:32 Dose: 0.1 mg Clonidine HCl (Catapres) 0.1 mg PO UNSCH PRN PRN Reason: SEE LABEL COMMENTS Diphenhydramine HCl (Benadryl) 25 mg PO UNSCH PRN PRN Reason: SEE LABEL COMMENTS Epoetin [place] (Epogen Inj) 10,000 unit IV.PUSH MOWEFR [facility] Last Admin: 08/29/18 20:51 Dose: Not Given Gelatin (Gelfoam 12 Mm/7 Mm Topical) 1 foam TOPICAL PRN PRN PRN Reason: help stop bleeding from site Gentamicin Sulfate (Gentamicin Inj) 20 mg OTHER WITH DIALYSIS PRN PRN Reason: Dwell Gentamycin Lock Last Admin: 08/28/18 11:20 Dose: 20 mg Heparin Sodium (Porcine) (Heparin Inj) 5,000 units SQ Q8H [facility] Last Admin: 09/01/18 03:08 Dose: 5,000 units Heparin Sodium (Porcine) (Heparin Central Flush) 0 unit IV.FLUSH DAILY PRN PRN Reason: SEE DOSE INSTRUCTIONS Last Admin: 08/27/18 19:25 Dose: 1,000 unit Heparin Sodium (Porcine) (Heparin Inj) 8,000 units OTHER WITH DIALYSIS PRN PRN Reason: for machine prime Heparin Sodium (Porcine) (Heparin Inj) 1,000 units OTHER WITH DIALYSIS PRN PRN Reason: Dwell Heparin to Fill Catheter Last Admin: 08/28/18 11:20 Dose: 1,000 units Sodium Chloride (Ns Inj) 1,000 mls @ 0 mls/hr OTHER .Q0M PRN PRN Reason: for prime and rinse back Sodium Chloride (Ns Inj) 1,000 mls @ 200 mls/hr OTHER .Q5H PRN PRN Reason: for dialyzer flush PRN Sodium Chloride (Ns Inj) 1,000 mls @ 0 mls/hr IV.CONT .Q0M PRN PRN Reason: hypotension / volume replace Albumin Human (Flexbumin 25% Inj) 100 mls @ 60 mls/hr IV.SIG WITH DIALYSIS PRN PRN Reason: hypotension / volume replace Mannitol (Mannitol Inj) 12.5 gm IV.PUSH UNSCH PRN PRN Reason: hypotension / volume replace Melatonin (Melatonin) 5 mg PO HS PRN PRN Reason: INSOMNIA Last Admin: 08/28/18 22:00 Dose: 5 mg Nitroglycerin (Nitrostat Sl) 0.4 mg SL Q5M PRN PRN Reason: CHEST PAIN Nitroglycerin (Nitro-Bid 2% Oint) 2 inch TOPICAL Q6HR [facility] Last Admin: 09/01/18 05:57 Dose: 2 inch Ondansetron HCl (Zofran Inj) 4 mg IV.PUSH Q6H PRN PRN Reason: NAUSEA OR VOMITING Ondansetron HCl (Zofran Inj) 4 mg IV.PUSH UNSCH PRN PRN Reason: NAUSEA OR VOMITING Pantoprazole Sodium (Protonix) 40 mg PO DAILY [facility] Last Admin: 08/31/18 10:18 Dose: 40 mg Senna/Docusate Sodium (Perla-Colace) 1 tab PO BID [facility] Last Admin: 08/31/18 20:01 Dose: Not Given Sodium Chloride (Ns Flush) 0 ml IV.FLUSH PRN PRN PRN Reason: SEE DOSE INSTRUCTIONS Sodium Chloride (Ns Flush) 5 ml IV.FLUSH PRN PRN PRN Reason: flush each lumen during HD Sodium Chloride (Ns Flush) 2 ml IV.FLUSH BID [facility] Last Admin: 08/31/18 20:01 Dose: 2 ml Sodium Chloride (Ns Flush) 2 ml IV.FLUSH PRN PRN PRN Reason: FLUSH AFTER USING IV ACCESS Allergies Allergy/AdvReac Type Severity Reaction Status Date / Time codeine Allergy Unknown Hives Verified 08/27/18 10:12 Home Medications Medication Instructions Recorded Confirmed Type No Known Home Medications 08/27/18 08/27/18 History Physical Exam Vital signs: Vital Signs 08/31/18 08:00 08/31/18 08:15 08/31/18 09:00 Temperature 97.5 F L Pulse Rate 93 H 83 Respiratory Rate 14 Blood Pressure 146/98 H Pulse Oximetry 100 98 08/31/18 10:00 08/31/18 11:00 08/31/18 12:00 Temperature 97.6 F Pulse Rate 83 80 66 Respiratory Rate 16 Blood Pressure 138/104 H Pulse Oximetry 99 08/31/18 13:00 08/31/18 14:00 08/31/18 15:00 Temperature Pulse Rate 84 83 91 H Respiratory Rate Blood Pressure Pulse Oximetry 08/31/18 16:00 08/31/18 17:00 08/31/18 17:48 Temperature 97.9 F Pulse Rate 91 H 79 82 Respiratory Rate 14 Blood Pressure 134/92 H Pulse Oximetry 98 08/31/18 19:00 08/31/18 20:00 08/31/18 21:00 Temperature 98 F Pulse Rate 103 H 88 82 Respiratory Rate 18 Blood Pressure 129/89 Pulse Oximetry 98 08/31/18 22:00 08/31/18 23:00 08/31/18 23:47 Temperature Pulse Rate 82 82 78 Respiratory Rate 16 Blood Pressure 111/82 Pulse Oximetry 98 09/01/18 00:00 09/01/18 01:00 09/01/18 02:00 Temperature Pulse Rate 74 74 76 Respiratory Rate Blood Pressure Pulse Oximetry 09/01/18 03:00 09/01/18 03:22 09/01/18 04:00 Temperature Pulse Rate 77 76 72 Respiratory Rate 16 Blood Pressure 126/85 Pulse Oximetry 98 09/01/18 05:00 09/01/18 06:00 Temperature Pulse Rate 74 70 Respiratory Rate Blood Pressure Pulse Oximetry Intake & Output 08/31/18 09/01/18 09/01/18 18:59 06:59 18:59 Intake Total 720 / 720 480 / 480 Output Total 200 / 200 0 / 0 Balance 520 / 520 480 / 480 Weight 79 kg Intake: Oral 720 / 720 480 / 480 Output: Urine 200 / 200 0 / 0 Other: Date of Last Bowel Movement 08/31/18 08/31/18 - Constitutional no acute distress - Routine HEENT Exam Head: Present: normocephalic - Routine Neck Exam Present: supple - Routine Respiratory Exam Present: CTA bilaterally - Routine Cardiovascular Exam Present: S1, S2 - Routine Abdominal Exam Present: soft - Routine Extremities Exam Comments: no ashish Results 09/01/18 05:27 09/01/18 05:27 CBC 08/30/18 08/31/18 09/01/18 Range/Units 09:15 05:48 05:27 WBC 1.7 L 4.5 D 4.9 (4.0-11.0) th/mm3 RBC 2.75 L 2.47 L 2.53 L (4.50-5.90) mil/mm3 Hgb 8.7 L 7.7 L 8.0 L (13.0-17.0) gm/dL Hct 25.3 L 23.0 L 24.0 L (39.0-51.0) % Plt Count 84 L 87 L 100 L (150-450) th/mm3 Neut # (Auto) 3.5 (1.8-7.7) th/mm3 Lymph # (Auto) 0.5 L (1.0-4.8) th/mm3 [facility] # (Auto) 0.4 (0.0-0.9) th/mm3 Eos # (Auto) 0.1 (0.0-0.4) th/mm3 Baso # (Auto) 0.0 (0.0-0.2) th/mm3 Comprehensive Metabolic Panel 08/30/18 08/31/18 09/01/18 Range/Units 09:15 05:48 05:27 Sodium 137 137 134 L (136-145) meq/L Potassium 3.4 L 3.6 4.1 (3.5-5.1) meq/L Chloride 100 99 96 L (98-107) meq/L Carbon Dioxide 24.8 26.1 24.6 (21.0-32.0) meq/L BUN 82 H 66 H 78 H (7-18) mg/dL Creatinine 10.97 H* D 9.75 H 10.97 H* D (0.60-1.30) mg/dL Calcium 5.9 L* 6.1 L* 6.2 L* (8.5-10.1) mg/dL Total Protein 5.3 L 5.6 L (6.4-8.2) g/dL Albumin 2.7 L (3.4-5.0) g/dL Intake and Output 08/31/18 09/01/18 09/01/18 22:59 06:59 14:59 Intake Total 720 / 720 480 / 480 Output Total 200 / 200 0 / 0 Balance 520 / 520 480 / 480 Intake: Oral 720 / 720 480 / 480 Output: Urine 200 / 200 0 / 0 Other: Date of Last Bowel Movement 08/31/18 08/31/18 Weight 79 kg - Imaging and Cardiology Imaging: Impressions Tube Removal 08/27/18 00:00 CONCLUSION: Uncomplicated Permcath removal. Abdomen X-Ray 08/31/18 00:00 CONCLUSION: Negative examination. Assessment and Plan - Assessment (1) NSTEMI (non-ST elevated myocardial infarction) Code(s): I21.4 - Non-ST elevation (NSTEMI) myocardial infarction Status: Acute (2) Thrombocytopenia Code(s): D69.6 - Thrombocytopenia, unspecified Status: Acute (3) Elevated troponin Code(s): R74.8 - Abnormal levels of other serum enzymes Status: Acute (4) Delirium due to another medical condition Code(s): F05 - Delirium due to known physiological condition Status: Acute (5) End stage renal disease Code(s): N18.6 - End stage renal disease Status: Acute (6) Anemia Code(s): D64.9 - Anemia, unspecified Status: Acute - Plan 1.) NSTEMI - assymptomatic on coreg 6.25 mg bid and 2 in ntp, ac held due to thrombocytopenia, anemia and unstable hgb and platelet count; rec medical management due to inability to consent, multiple comorbidities, patient's refusal for senior living dialysis
[2018-09-01] MEDS: Carvedilol 6.25 MG Tablet PO SCH (08:22)
[2018-09-01] MEDS: Senna/Docusate Sodium 8.6/50 MG Tablet PO SCH (08:22)
[2018-09-01] MEDS: Calcitriol 0.25 MCG Capsule PO SCH (08:22)
[2018-09-01] MEDS: Calcium Acetate 667 MG Capsule PO SCH ×2 (08:22→12:06)
[2018-09-01] MEDS: Sodium Chloride 0.9% 2 ML Flush BID IV.FLUSH SCH (08:22)
--- NOTE | 2018-09-01 10:22 | P.PNNP ---
Subjective Interval history: Seen by psychiatry, deemed competent to take decisions. He continues to refuse dialysis. Physical Exam Vital signs: Vital Signs 08/31/18 11:00 08/31/18 12:00 08/31/18 13:00 Temperature 97.6 F Pulse Rate 80 66 84 Respiratory Rate 16 Blood Pressure 138/104 H Pulse Oximetry 99 08/31/18 14:00 08/31/18 15:00 08/31/18 16:00 Temperature 97.9 F Pulse Rate 83 91 H 91 H Respiratory Rate 14 Blood Pressure 134/92 H Pulse Oximetry 98 08/31/18 17:00 08/31/18 17:48 08/31/18 19:00 Temperature Pulse Rate 79 82 103 H Respiratory Rate Blood Pressure Pulse Oximetry 08/31/18 20:00 08/31/18 21:00 08/31/18 22:00 Temperature 98 F Pulse Rate 88 82 82 Respiratory Rate 18 Blood Pressure 129/89 Pulse Oximetry 98 08/31/18 23:00 08/31/18 23:47 09/01/18 00:00 Temperature Pulse Rate 82 78 74 Respiratory Rate 16 Blood Pressure 111/82 Pulse Oximetry 98 09/01/18 01:00 09/01/18 02:00 09/01/18 03:00 Temperature Pulse Rate 74 76 77 Respiratory Rate Blood Pressure Pulse Oximetry 09/01/18 03:22 09/01/18 04:00 09/01/18 05:00 Temperature Pulse Rate 76 72 74 Respiratory Rate 16 Blood Pressure 126/85 Pulse Oximetry 98 09/01/18 06:00 09/01/18 07:00 09/01/18 08:00 Temperature 97.8 F Pulse Rate 70 70 78 Respiratory Rate 16 Blood Pressure 124/81 Pulse Oximetry 100 09/01/18 09:00 09/01/18 10:00 09/01/18 10:08 Temperature Pulse Rate 74 74 72 Respiratory Rate Blood Pressure Pulse Oximetry Intake & Output 08/31/18 09/01/18 09/01/18 18:59 06:59 18:59 Intake Total 720 / 720 480 / 480 Output Total 200 / 200 0 / 0 Balance 520 / 520 480 / 480 Weight 79 kg Intake: Oral 720 / 720 480 / 480 Output: Urine 200 / 200 0 / 0 Other: Date of Last Bowel Movement 08/31/18 08/31/18 08/31/18 - Constitutional no acute distress - Routine HEENT Exam Head: Present: normocephalic, atraumatic Eye: Present: EOMI, PERRL ENT: Present: mucous membranes moist - Routine Neck Exam Present: supple. Absent: JVD, carotid bruit - Routine Respiratory Exam Present: CTA bilaterally. Absent: accessory muscle use - Routine Cardiovascular Exam Present: RRR, S1, S2 - Routine Abdominal Exam Comments: abdomen is distended. - Routine Extremities Exam Absent: edema - Routine Neurological Exam Present: alert, oriented X3 Assessment and Plan - Assessment (1) End stage renal disease Code(s): N18.6 - End stage renal disease Status: Acute Plan: We will not continue dialysis anymore, respecting his wishes. , PermCath can be removed. Hospice to be consulted. I will sign off at this time. (2) Hypertension Code(s): I10 - Essential (primary) hypertension Status: Acute Plan: Well controlled (3) Delirium due to another medical condition Code(s): F05 - Delirium due to known physiological condition Status: Acute Plan: Improved. (4) Anemia Code(s): D64.9 - Anemia, unspecified Status: Acute (5) Metabolic bone disease Code(s): E88.9 - Metabolic disorder, unspecified; M90.80 - Osteopathy in diseases classified elsewhere, unspecified site Status: Acute - Attending Attestation I will sign off at this time. PermCath can be removed. Hospice to be consulted.
--- NOTE | 2018-09-01 10:26 | P.PNPSY ---
Subjective Remarks: The patient was seen today for psychiatric reevaluation. Chart was reviewed. Case discussed with primary medical team. On psychiatric evaluation the patient is found awake, calm, cooperative. He does present some level of psychomotor retardation and constricted affect, but he reports to be in a good mood. He reports that he feels better today, even though he has some leg pain. He says that he prefers not to continue with hemodialysis, he says a painful procedure that he has some difficulty tolerating. He says that he understands that if he does not take the procedure he can , but he says that he has been living sick long enough he prefers to have a life without pain. He is interested in exploring just comfort care. He denies suicidal and homicidal ideation, he denies visual and auditory hallucinations. The patient is fully oriented x3 at this moment, he seems to be logical, coherent and relevant, and able to verbalize a good understanding and appreciation of current medical illnesses. Mental Status Examination Appearance: Appropriate Consciousness: Somnolent, Clouded Orientation: x4 Motor Activity: Normal gait Speech: Unremarkable Language: Adequate Fund of Knowledge: Adequate Attention and Concentration: Adequate Memory: Unremarkable Mood: Appropriate Affect: Blunt Thought Process & Associations: Intact, Loose associations Thought Content: Bizarre thinking Hallucination Type: None Delusion Type: None Suicidal Ideation: No Suicidal Plan: No Suicidal Intention: No Homicidal Ideation: No Homicidal Plan: No Homicidal Intention: No Insight: Fair Judgment: Impulsive Assessment and Plan - Assessment (1) Delirium due to another medical condition Code(s): F05 - Delirium due to known physiological condition Status: Acute (2) Acute uremia Code(s): N19 - Unspecified kidney failure Status: Acute - Plan Plan: On my psychiatric evaluation today the patient presents calm, cooperative, logical, coherent and relevant. The patient reports okay mood, he is fully oriented x3, able to verbalize good understanding and appreciation of current medical situation. Patient says that he prefers to stop hemodialysis due to pain and is open to exploring just comfort care. He is able to provide a rational reason for this decision, as well as quite good explanation of consequences of his actions. At this moment the patient is found with decision- making capacity to refused hemodialysis. Consult palliative care for goals of care and to explore hospice. Support, motivational psychoeducation provided. Justification for Continued Inpatient Stay: No admission is indicated at this moment.
[2018-09-01] MEDS ORDERED: predniSONE 20 MG Tablet PO ONE (11:00)
--- NOTE | 2018-09-01 11:52 | P.DS ---
Date of admission: 08/27/18 11:18 Primary care physician: No Primary Care Physician Brief History from admission: The patient is a 53-year-old male with a past medical history of end-stage renal disease on dialysis who is presenting to the hospital with chest pain. The patient says that he woke up this morning with left-sided chest pain. He rated the pain as a 10 out of 10 in severity. He says the pain comes and goes. He says he has been experiencing this chest pain every once in a while. It is associated with shortness of breath. He does not take any medications at home for it. He denies a history of heart attacks in the past. He also denies any history of stress tests or catheterizations. The patient says that when he does experience the chest pain it seems to last for a very long time. The patient says he was on dialysis for a few months and decided to stop it 2 or 3 months ago because he did not want to go anymore. He is unable to say why he chose to stop dialysis other than that he did not want to do it anymore. He says he has a history of depression and he has felt very depressed. He denies any suicidal thoughts at this time. He does not want to pursue dialysis, however, he was evaluated in the emergency department by psychiatry who determined that the patient does not have capacity to make medical decisions at this time. The patient is currently unable to explain why he needed dialysis and what would happen if he stopped having dialysis. Patient update on day of discharge: The patient was seen by psychiatry who deemed the patient competent to make decisions. The patient continues to refuse dialysis. He would like to pursue hospice services. He still complained of toe pain. Discussed with nephrology and psychiatry. DS: Diagnosis - Discharge Diagnosis (1) Acute uremia Status: Acute (2) Elevated troponin Status: Acute (3) Delirium due to another medical condition Status: Acute (4) End stage renal disease Status: Acute DS: Summary Hospital Course: ESRD/Lack of capacity The pt stopped dialysis about three months ago. He presented with a creatinine over 19. He does not want to resume dialysis but psychiatry has determined that he does not have the capacity to make that decision. Nephrology was consulted. IR placed a dialysis catheter. The pt continued dialysis per nephrology. Psychiatry re-evaluated the pt and deemed the pt to have capacity. The pt continued to state he would like to stop dialysis and would like to pursue hospice care at home. Nephrology was made aware. Case management was consulted as well as hospice. The pt will be discharged home and will have his dialysis catheter removed. Chest pain The pt presented to the hospital with left sided chest pain. He says he has had it on and off. EKG with NSR, T wave inversions. Trops peaked at 0.08. Cardiology was consulted. Beta linda was increased and Nitropaste was added. He was monitored on telemetry. His chest pain resolved. Toe pain Pt has a history of gout. Exam only remarkable for mild tenderness to palpation of toes. Uric acid not elevated. He received hydrocodone as needed as well as a dose of prednisone. - Time Spent with Patient Total time spent providing and/or coordinating discharge services: Greater than 30 minutes Exam Vital signs: Vital Signs 08/31/18 12:00 08/31/18 13:00 08/31/18 14:00 Temperature 97.6 F Pulse Rate 66 84 83 Respiratory Rate 16 Blood Pressure 138/104 H Pulse Oximetry 99 08/31/18 15:00 08/31/18 16:00 08/31/18 17:00 Temperature 97.9 F Pulse Rate 91 H 91 H 79 Respiratory Rate 14 Blood Pressure 134/92 H Pulse Oximetry 98 08/31/18 17:48 08/31/18 19:00 08/31/18 20:00 Temperature 98 F Pulse Rate 82 103 H 88 Respiratory Rate 18 Blood Pressure 129/89 Pulse Oximetry 98 08/31/18 21:00 08/31/18 22:00 08/31/18 23:00 Temperature Pulse Rate 82 82 82 Respiratory Rate Blood Pressure Pulse Oximetry 08/31/18 23:47 09/01/18 00:00 09/01/18 01:00 Temperature Pulse Rate 78 74 74 Respiratory Rate 16 Blood Pressure 111/82 Pulse Oximetry 98 09/01/18 02:00 09/01/18 03:00 09/01/18 03:22 Temperature Pulse Rate 76 77 76 Respiratory Rate 16 Blood Pressure 126/85 Pulse Oximetry 98 09/01/18 04:00 09/01/18 05:00 09/01/18 06:00 Temperature Pulse Rate 72 74 70 Respiratory Rate Blood Pressure Pulse Oximetry 09/01/18 07:00 09/01/18 08:00 09/01/18 09:00 Temperature 97.8 F Pulse Rate 70 78 74 Respiratory Rate 16 Blood Pressure 124/81 Pulse Oximetry 100 09/01/18 10:00 09/01/18 10:08 Temperature Pulse Rate 74 72 Respiratory Rate Blood Pressure Pulse Oximetry Intake & Output 08/31/18 09/01/18 09/01/18 18:59 06:59 18:59 Intake Total 720 / 720 480 / 480 Output Total 200 / 200 0 / 0 Balance 520 / 520 480 / 480 Weight 79 kg Intake: Oral 720 / 720 480 / 480 Output: Urine 200 / 200 0 / 0 Other: Date of Last Bowel Movement 08/31/18 08/31/18 08/31/18 Narrative: GENERAL: NAD. NECK: Trachea midline. No JVD. CARDIOVASCULAR: Regular rate and rhythm. No murmur appreciated. Permacath to the right chest. RESPIRATORY: Scattered rhonchi. GASTROINTESTINAL: Abdomen soft, minimally tender, distended abdomen. MUSCULOSKELETAL: No obvious deformities. No clubbing. No cyanosis. Mild bilateral lower extremity edema. Tenderness to palpation of toes, no erythema noted. NEUROLOGICAL: Awake and alert. Slow speech. PSYCHIATRIC: Flat affect. Results Procedures completed during hospitalization: See hospital course Labs on day of discharge: Labs from last 24 hours 09/01/18 09/01/18 05:27 05:27 WBC 4.9 RBC 2.53 L Hgb 8.0 L Hct 24.0 L MCV 94.7 MCH 31.4 MCHC 33.2 RDW 14.4 Plt Count 100 L MPV 9.0 Sodium 134 L Potassium 4.1 Chloride 96 L Carbon Dioxide 24.6 Anion Gap 13 BUN 78 H Creatinine 10.97 H* D Estimated GFR 5 L Random Glucose 92 Calcium 6.2 L* Prot Corrected Calcium 6.9 L* Phosphorus 4.3 Magnesium 1.6 Total Protein 5.6 L - Impressions ITS Impressions Central Venous Line 08/27/18 00:00 CONCLUSION: Uncomplicated PermaCath placement as above. Tube Removal 08/27/18 00:00 CONCLUSION: Uncomplicated Permcath removal. Chest X-Ray 08/27/18 09:19 CONCLUSION: Negative chest. I do not see an etiology for the shortness of breath Abdomen X-Ray 08/31/18 00:00 CONCLUSION: Negative examination. Discharge Plan - Discharge Disposition Patient Disposition: 50 Hospice/Home - Discharge Condition Condition: Fair - Discharge Order Discharge Orders: Discharge Order (Routine); Ordered 09/01/18 Ordered By: Jesús Avila - Discharge Details Anticipated Discharge Date: 09/01/18 Discharge Comment: OK to discharge once dialysis catheter is removed and hospice is set up - Physicians Team Primary Care Provider: Primary Care Kalpana Banuelos Attending Provider: Jesús Avila Other Providers: Julio Cesar Garduno MD ; Lalo Lundy MD ; [employer] ; Hong Bains MD
--- NOTE | 2018-09-01 14:48 | IR ---
EXAM DATE: 09/01/2018 2:06 PM EST AGE/SEX: 53 years / Male INDICATIONS: Patient with perm cath wants to stop dialysis. Here for his removal of permcath. CLINICAL DATA: This is the patient's subsequent encounter. Patient reports that signs and symptoms h ave been present for 4 - 6 days and indicates a pain score of 0/10. MEDICAL/SURGICAL HISTORY: Hypertension. Renal disease, end stage. bipolar, former smoker . pe rm cath placment COMPARISON: No prior exams available for comparison. IMAGE SERIES: 0 ACCESS SITE: Right . . PROCEDURE: 1. PermaCath removal. The risks, benefits and alternatives to the procedure were explained and verbal and written consent w as obtained. The site was prepped in sterile fashion. Full sterile technique was used, including ca p, mask, sterile gloves and gown and a large sterile sheet. Hand hygiene and 2% chlorhexidine and/or betadine/alcohol prep was utilized per protocol for cutaneous antisepsis. The skin and subcutaneous tissues were infiltrated with local anesthetic solution. The tract was anesthetized with 1% Lidocaine using. The Permcath was dissected from the subcutaneous tissues and easily removed in one piece. Manual pressure was applied to the venotomy site until hem ostasis was obtained. Sterile dressing was applied. The patient tolerated the procedure well and there were no complications. CONCLUSION: 1. Uncomplicated Permcath removal. Electronically signed by: Georges Skelton MD 09/01/2018 2:47 PM EST
[2018-09-01 15:01] VITALS: PULSE 79
[2018-09-01 16:28] VITALS: BP 135/87; RESP 18; TEMP 98.1; O2SAT 99
== END 2018-09-01 17:22 | disposition hospice, home (50) ==
LOC: NEPE 09:08 → NEDA 11:18 → HCIS 13:30 → NEDA 13:34
PROVIDERS: ADMIT Hospitalist; ATTEND Hospitalist